=== PATIENT | male | born 1945 | race Caucasian/White ===

== ENCOUNTER 2022-02-15 09:28 | Outpatient (RCR) | payer MEDICARE, SELFPAY | END 2022-07-16 08:48 | disposition home or self-care (01) | LOC: HO.WCC 09:28 | PROVIDERS: PCP Internal Medicine; Visit Provider Physician Assistant | DX: I87.332 Chronic venous hypertension (idiopathic) with ulcer and inflammation of left lower extremity (principal); L97.822 Non-pressure chronic ulcer of other part of left lower leg with fat layer exposed; I87.2 Venous insufficiency (chronic) (peripheral); F03.90 Unspecified dementia, unspecified severity, without behavioral disturbance, psychotic disturbance, mood disturbance, and anxiety | CPT/HCPCS: 11042; 11045; 17250; 97597; 99212 ==

== ENCOUNTER 2022-07-14 12:39 | Outpatient (REF) | payer MEDICARE, SELFPAY ==
--- NOTE | ~2022-07-14 | US_ITS ---
EXAMINATION: US LOWER EXTREMITY VENOUS (REFLUX EXAM), BILATERAL CLINICAL INDICATION: This is a 76-year-old male with venous insufficiency and varicose veins. COMPARISON: None. TECHNIQUE: Color flow triplex imaging and compression Doppler was performed to evaluate both the deep and the superficial systems bilaterally. To evaluate the superficial system, the examination was performed in the upright position. Color-flow Doppler ultrasound and compression ultrasound were utilized. In addition, maneuvers were utilized to demonstrate reflux. FINDINGS: 3. DEEP VENOUS ULTRASOUND OF THE LEFT LOWER EXTREMITY: Common Femoral Vein: Compressible but demonstrates reflux of 1516 ms. Femoral Vein: Compressible, normal color flow and augmentation. Popliteal Vein: Compressible, normal augmentation. Deep Reflux: There is evidence of reflux in the deep system in either the common femoral vein or the popliteal vein. There is no evidence of a Alvarez's cyst. 4. SUPERFICIAL ULTRASOUND WITH DOPPLER OF LEFT LOWER EXTREMITY: GREAT SAPHENOUS VEIN: Saphenofemoral Junction: 0.6 cm Mid Thigh: 0.2 cm Above Knee: 0.2 cm Below Knee: 0.2 cm Mid Calf: 0.2 cm Ankle: 0.1 cm GSV REFLUX: No evidence of reflux. DUPLICATED GREAT SAPHENOUS VEIN: There is a 0.4 cm duplicated lateral great saphenous vein without reflux. SMALL SAPHENOUS VEIN: Proximal: 0.6 cm. The reflux time is 564 ms. Distal: 0.4 cm. There is no reflux at this level. SSV REFLUX: There is reflux at the junction. VEIN OF GIACOMINI: None Imaged. 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 VARICOSITIES: There are 0.4 cm thigh varicose veins without reflux. US/US venous duplex LE LT IMPRESSION: 1. The left great saphenous vein is patent without evidence of reflux. 2. The left small saphenous vein is patent with reflux at the junction as noted.
== END 2022-07-14 12:40 | disposition home or self-care (01) ==
LOC: HO.US 12:39
PROVIDERS: PCP Internal Medicine; Visit Provider Physician Assistant
DX: I87.2 Venous insufficiency (chronic) (peripheral) (principal); I83.90 Asymptomatic varicose veins of unspecified lower extremity; S81.802D Unspecified open wound, left lower leg, subsequent encounter
CPT/HCPCS: 93971

== ENCOUNTER 2023-04-02 17:32 | Emergency (ER) | payer MEDICARE, SELFPAY ==
[2023-04-02] VITALS (7 sets, daily range): BP systolic 105–142; BP diastolic 56–85; PULSE 66–81; RESP 14–16; TEMP 36.4–36.9; O2SAT 93–97; BMI 24.0
--- NOTE | ~2023-04-02 | CT_ITS ---
EXAMINATION: NONCONTRAST HEAD CT NONCONTRAST CERVICAL SPINE CT INDICATION INFORMATION: Status post fall COMPARISON: 06/17/2018 TECHNIQUE: Separate noncontrast CT examinations of the head and cervical spine were performed. Coronal and sagittal images were created for each examination at the technologist workstation. This CT examination was performed using dose optimization techniques as appropriate, variously including the following: *Automated exposure control *Adjustment of mA and/or kV according to patient size (this includes techniques or standardized protocols for targeted exams where dose is matched to indication/reason for exam; i.e. extremities or head) *Use of iterative reconstruction technique DLP: 911 mGy-cm FINDINGS: Head: There is no evidence of acute intracranial hemorrhage or territorial infarction. No abnormal mass effect or midline shift is seen. Kaye to white matter differentiation is well preserved. No extra-axial fluid collections are identified. No hydrocephalus. No significant volume loss. Patchy periventricular and deep white matter hypoattenuation is consistent with mild small vessel ischemic changes. Unchanged left superior temporal gyral cortical calcification, likely dystrophic and postinflammatory in nature, potentially related to old trauma or infarct. No acute osseous or soft tissue abnormality. The mastoid air cells and visualized portions of the paranasal sinuses are well aerated. Cervical spine: There is anatomic alignment of the vertebral bodies and posterior elements. The atlantoaxial and atlantooccipital articulations are intact. Vertebral body heights maintained. Moderate loss of disc space height at C4-C5, C5-C6 and C6-C7. Endplate osteophytes present throughout the cervical spine resulting in varying degrees neural foraminal narrowing throughout. No evidence of acute fracture. No prevertebral soft tissue swelling. Visualized portions of the lung apices are unremarkable. The thyroid gland is unremarkable. CT/CT cervical spine wo IV con IMPRESSION: * No acute intracranial findings. * Chronic dystrophic calcification along the left superior temporal gyrus. Diagnostic considerations as above. * No acute fracture or malalignment of the cervical spine.
--- NOTE | 2023-04-02 17:48 | ED.AMS ---
HPI - Altered Mental Status General Chief Complaint: Altered Mental Status Stated Complaint: AMS Time Seen by Provider: 04/02/23 17:47 Source: patient and EMS Mode of arrival: EMS Limitations: altered mental status History of Present Illness HPI narrative: Patient apparently was outside in heat did not have much water today felt dizzy lightheaded and passed out witness from a distance patient was confused after the fall, do not remember exactly what happened. No seizure activity no palpitation no chest pain never had similar episode in the past Related Data Allergies Allergy/AdvReac Type Severity Reaction Status Date / Time No Known Allergies Allergy Unverified 08/07/20 15:10 [No Known Allergies*] Review of Systems Review of Systems: Yes all other systems are reviewed and are negative [facility] [place] Social History Social History Alcohol intake: current Alcohol intake frequency: 0-2 drinks per day Alcohol type: beer and wine Smoked in Last 30 Days: No Use of substances other than those prescribed or required for medical reasons: No Advance Directives: No Advance Directives Information Provided: No Physical Exam ED Vital Signs: Vital Signs - 24 hr 04/02/23 17:46 04/02/23 17:54 04/02/23 19:29 Temperature 98.4 F 98.4 F 97.9 F Pulse Rate 81 73 68 Respiratory Rate 14 16 16 Blood Pressure 105/56 L 105/56 L 121/69 Pulse Oximetry 93 94 96 Oxygen Delivery Method Room Air Room Air Room Air 04/02/23 20:41 04/02/23 20:42 04/02/23 20:44 Temperature Pulse Rate 73 71 76 Respiratory Rate Blood Pressure 120/68 122/67 142/85 H Pulse Oximetry Oxygen Delivery Method 04/02/23 22:10 Temperature 97.6 F Pulse Rate 66 Respiratory Rate 14 Blood Pressure 116/64 Pulse Oximetry 97 Oxygen Delivery Method Room Air BMI result Body Mass Index 24.0 Appearance: Alert. Oriented 2-3. No acute distress. Eyes: PERRLA, No Nystagmus HEENT: Pharynx normal. 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 Neck supple. In cervical collar CVS: Normal heart rate and rhythm. Pulses normal. Respiratory: No respiratory distress. Equal air entry bilateral, no wheezing/rales/rhonchi Abdomen: Soft and nontender. Bowel sounds are present, no mass palpable, no CVA tenderness Skin: Skin warm and dry. Normal skin color. Normal skin turgor. Extremities: No lower extremity edema. No calf tenderness Neuro: Oriented X 2-3. No motor deficit. No sensory deficit.No cerebellar signs , cranial nerves II-XII intact Medications Administered Discontinued Medications Generic Name Dose Route Start Last Admin Trade Name Freq PRN Reason Stop Dose Admin Sodium Chloride 1,000 mls @ 999 mls/hr 04/02/23 17:59 04/02/23 19:20 Ns IV 04/02/23 18:59 Infused .Q1H1M ONE Infusion Sodium Chloride 1,000 mls @ 999 mls/hr 04/02/23 18:06 04/02/23 20:35 Ns IV 04/02/23 19:06 Infused .Q1H1M ONE Infusion Medical Decision Making Medical Decision Making [facility] Narrative: Patient's symptoms likely from heat exhaustion workup negative improved after IV fluids discharge patient home Lab Data [facility] Lab Attestation statement: I reviewed the patient's lab results. 04/02/23 18:44 04/02/23 18:44 Labs: Lab Results 04/02/23 04/02/23 04/02/23 Range/Units 18:44 18:44 18:44 WBC 5.5 (4.8-10.8) X10*3/uL RBC 3.04 L (4.60-5.80) X10*6/uL Hgb 8.9 L (14.0-18.0) g/dl Hct 26.9 L (42.0-52.0) % MCV 88.5 (80.0-98.0) fL MCH 29.3 (27.0-33.0) pg MCHC 33.1 (31.0-36.0) g/dl RDW 15.1 (11.0-16.0) % Plt Count 225 (160-400) X10*3/uL MPV 9.5 (9.4-12.4) fL Immature Gran % (Auto) 0.2 (0.0-0.4) % Neut % (Auto) 69.1 (45-73) % Lymph % (Auto) 19.6 L (20-40) % Sebastian % (Auto) 8.6 (2-11) % Eos % (Auto) 1.8 (0-4) % Baso % (Auto) 0.7 (0-2) % Lymph # (Auto) 1.1 L (1.2-4.9) X10*3/uL Sebastian # (Auto) 0.5 (0.1-1.2) X10*3/uL Eos # (Auto) 0.1 (0.0-0.4) X10*3/uL Baso # (Auto) 0.0 (0.0-0.2) X10*3/uL Abs Immat Gran (auto) 0.01 (0.00-0.03) X10*3/uL Absolute Neuts (auto) 3.8 (2.0-8.3) x10*3/uL Absolute Nucleated RBC 0.000 (0.0-0.012) X10*3/uL Nucleated RBC % (auto) 0.0 (0.0-0.2) /100WBC PT 10.5 (10.0-13.1) SEC INR 0.9 (0.9-1.1) Sodium 134 L (135-145) mmol/L Potassium 4.5 (3.3-5.1) mmol/L Chloride 111 H (96-108) mmol/L Carbon Dioxide 19 L (22-29) mmol/L Anion Gap 9 L (12-20) BUN 21 H (9-16) mg/dL Creatinine 1.21 (0.5-1.4) mg/dL Estim Creat Clear Calc 41.4 Estimated GFR 58 Random Glucose 92 (60-115) mg/dL Calcium 8.6 (8.4-10.2) mg/dL Magnesium 1.9 (1.6-2.6) mg/dL Total Bilirubin 0.2 (0.0-1.0) mg/dL AST 15 (5-37) U/L ALT 10 (0-40) U/L Alkaline Phosphatase 90 (39-117) U/L Total Creatine Kinase 62 (38-174) U/L Troponin I High Sens (<3.5-35.0) ng/L Total Protein 4.9 L (6.5-8.0) g/dL Albumin 3.0 L (3.5-5.0) g/dL Urine Color Urine Appearance Urine pH (5.0-9.0) Ur Specific [place] (1.005-1.025) Urine Protein (Neg-Trace) mg/dL Urine Glucose (UA) (Negative) mg/dL Urine Ketones (Negative) mg/dL Urine Blood (Negative) Urine Nitrite (Negative) Ur Leukocyte Esterase (Negative) 04/02/23 04/02/23 Range/Units 18:44 20:54 WBC (4.8-10.8) X10*3/uL RBC (4.60-5.80) X10*6/uL Hgb (14.0-18.0) g/dl Hct (42.0-52.0) % MCV (80.0-98.0) fL MCH (27.0-33.0) pg MCHC (31.0-36.0) g/dl RDW (11.0-16.0) % Plt Count (160-400) X10*3/uL MPV (9.4-12.4) fL Immature Gran % (Auto) (0.0-0.4) % Neut % (Auto) (45-73) % Lymph % (Auto) (20-40) % Sebastian % (Auto) (2-11) % Eos % (Auto) (0-4) % Baso % (Auto) (0-2) % Lymph # (Auto) (1.2-4.9) X10*3/uL Sebastian # (Auto) (0.1-1.2) X10*3/uL Eos # (Auto) (0.0-0.4) X10*3/uL Baso # (Auto) (0.0-0.2) X10*3/uL Abs Immat Gran (auto) (0.00-0.03) X10*3/uL Absolute Neuts (auto) (2.0-8.3) x10*3/uL Absolute Nucleated RBC (0.0-0.012) X10*3/uL Nucleated RBC % (auto) (0.0-0.2) /100WBC PT (10.0-13.1) SEC INR (0.9-1.1) Sodium (135-145) mmol/L Potassium (3.3-5.1) mmol/L Chloride (96-108) mmol/L Carbon Dioxide (22-29) mmol/L Anion Gap (12-20) BUN (9-16) mg/dL Creatinine (0.5-1.4) mg/dL Estim Creat Clear Calc Estimated GFR Random Glucose (60-115) mg/dL Calcium (8.4-10.2) mg/dL Magnesium (1.6-2.6) mg/dL Total Bilirubin (0.0-1.0) mg/dL AST (5-37) U/L ALT (0-40) U/L Alkaline Phosphatase (39-117) U/L Total Creatine Kinase (38-174) U/L Troponin I High Sens < 2.7 (<3.5-35.0) ng/L Total Protein (6.5-8.0) g/dL Albumin (3.5-5.0) g/dL Urine Color Yellow Urine Appearance Clear Urine pH 6.5 (5.0-9.0) Ur Specific [place] 1.015 (1.005-1.025) Urine Protein Negative (Neg-Trace) mg/dL Urine Glucose (UA) Negative (Negative) mg/dL Urine Ketones Negative (Negative) mg/dL Urine Blood Negative (Negative) Urine Nitrite Negative (Negative) Ur Leukocyte Esterase Negative (Negative) Discharge Plan Discharge Clinical Impression: Heat exhaustion Patient Disposition: Home, Self-Care Instructions: Heat Exhaustion (ED) Additional Instructions: Drink plenty of fluids Stay in door and well-hydrated
--- NOTE | 2023-04-02 17:59 | ECG_ITS ---
Test Reason : syncope Blood Pressure : / mmHG Vent. Rate : 072 BPM Atrial Rate : 072 BPM P-R Int : 246 ms QRS Dur : 094 ms QT Int : 390 ms P-R-T Axes : 014 -21 053 degrees QTc Int : 427 ms Sinus rhythm with 1st degree A-V block Otherwise normal ECG When compared with ECG of 19-AUG-2018 15:34, [place] interval has increased Referred By: Zia Hernandez Electronically Signed By:CELIA LOOMIS
[2023-04-02] MEDS: 0.9 % Sodium Chloride 1,000 ML 999 ML IV ×2 (18:05→19:23)
[2023-04-02 18:48] LABS: MANUAL DIFF FLAG NO
[2023-04-02 18:49] LABS: Basophils Percent Auto 0.7 % (0-2); Eosinophils Absolute Auto 0.1 X10*3/uL (0.0-0.4); Eosinophils Percent Auto 1.8 % (0-4); Hematocrit 26.9 % (42.0-52.0); Hemoglobin 8.9 g/dl (14.0-18.0); Imm Gran Abs Auto 0.01 X10*3/uL (0.00-0.03); Imm Gran Pct Auto 0.2 % (0.0-0.4); Lymphocytes Absolute Auto 1.1 X10*3/uL (1.2-4.9); Lymphocytes Percent Auto 19.6 % (20-40); Mean Corpuscular HGB Conc 33.1 g/dl (31.0-36.0); Mean Corpuscular Hemoglobin 29.3 pg (27.0-33.0); Mean Corpuscular Volume 88.5 fL (80.0-98.0); Mean Platelet Volume 9.5 fL (9.4-12.4); Monocytes Absolute Auto 0.5 X10*3/uL (0.1-1.2); Monocytes Percent Auto 8.6 % (2-11); Neutrophils Absolute Auto 3.8 x10*3/uL (2.0-8.3); Neutrophils Percent Auto 69.1 % (45-73); Platelet Count 225 X10*3/uL (160-400); Red Blood Count 3.04 X10*6/uL (4.60-5.80); Red Cell Distribution Width 15.1 % (11.0-16.0); White Blood Count 5.5 X10*3/uL (4.8-10.8)
[2023-04-02 18:54] LABS: INTERNATIONAL NORM RATIO 0.9 (0.9-1.1); Prothrombin Time 10.5 SEC (10.0-13.1)
[2023-04-02 19:07] LABS: Alanine Aminotransferase 10 U/L (0-40); Alkaline Phosphatase 90 U/L (39-117); Anion Gap 9 (12-20); Aspartate Amino Transferase 15 U/L (5-37); Bilirubin Total 0.2 mg/dL (0.0-1.0); Blood Urea Nitrogen 21 mg/dL (9-16); Calcium 8.6 mg/dL (8.4-10.2); Carbon Dioxide 19 mmol/L (22-29); Chloride 111 mmol/L (96-108); Creatinine Clr Calc Pharmacy 41.4; Estimated Glomerular Filt Rate 58; Glucose Random 92 mg/dL (60-115); Magnesium 1.9 mg/dL (1.6-2.6); Potassium 4.5 mmol/L (3.3-5.1); Sodium 134 mmol/L (135-145); Total Protein 4.9 g/dL (6.5-8.0)
[2023-04-02 19:20] LABS: Troponin-I High Sensitivity < 2.7 ng/L (<3.5-35.0)
[2023-04-02 21:02] LABS: Appearance Urine Clear; Color Urine Yellow; Glucose Urine UA Negative (Negative); Leukocyte Esterase Urine Negative (Negative); Nitrite Urine Negative (Negative); PH 6.5 (5.0-9.0); Specific Gravity - Urine 1.015 (1.005-1.025); Urine Blood Negative (Negative); Urine Ketones Negative (Negative); Urine Protein Negative (Neg-Trace)
--- NOTE | 2023-04-02 21:07 | PC.NURSE ---
This screenplay writer assumed care of this Pt at 1900. Pt A&Ox4, denies any pain. C-collar cleared, orthostatic vitals obtained. Pt ambulated to the BR with steady gait, urine sample obtained and sent to lab.
== END 2023-04-02 22:54 | disposition home or self-care (01) ==
PROVIDERS: Emergency Provider Internal Medicine
DX: T67.5XXA Heat exhaustion, unspecified, initial encounter (principal); R42 Dizziness and giddiness; Y92.214 College as the place of occurrence of the external cause; Y99.9 Unspecified external cause status
CPT/HCPCS: 36415; 70450; 72125; 80053; 81003; 82550; 83735; 84484; 85025; 85610; 93005; 96360; 96361; 99284; 99285

== ENCOUNTER 2023-09-12 16:15 | Emergency (ER) | payer MEDICARE, SELFPAY ==
--- NOTE | 2023-09-12 16:31 | ED.AMS ---
HPI - Altered Mental Status General Chief Complaint: Altered Mental Status Stated Complaint: confusion @baseline, found walking around, SZ hx Time Seen by Provider: 09/12/23 16:19 Source: patient and EMS Mode of arrival: EMS Limitations: no limitations History of Present Illness HPI narrative: 78-year-old male with a history of casillas hypopituitarism, SIADH, mixed hyperlipidemia, hyponatremia, paroxysmal atrial fibrillation, seizures, moderate dementia who presents emergency department for evaluation of confusion. Information was obtained from EMS. The patient was found wandering around the [facility]. Apparently student is saw the patient wandering in the road, he appeared confused and they called campus security. [place] security then call EMS. According to EMS the patient initially was confused but seem to become more oriented more clear during transport. At the time of my evaluation, he told me that he has seizures and occasionally after a seizure he loses is memory for about an hour to an hour and a half sometimes cannot remember what happened. He states that he is on seizure medications but could not recount the names of his medications. Patient was oriented to person, place, he knew the month and year. He answers questions appropriately but does appear to have some memory deficits. I did obtain office records from [facility] in [place] and the record confirms that does have a known seizure disorder, he does take Keppra. Related Data Allergies Allergy/AdvReac Type Severity Reaction Status Date / Time No Known Allergies Allergy Unverified 08/07/20 15:10 [No Known Allergies*] Review of Systems Review of Systems: Yes all other systems are reviewed and are negative [facility] Past Medical History [facility] Narrative: Social history: Patient states he lives in [facility]. He denies alcohol, tobacco and drug use. Social History Social History Alcohol intake: current Alcohol intake frequency: 0-2 drinks per day Alcohol type: wine Smoked in Last 30 Days: No Use of substances other than those prescribed or required for medical reasons: No Advance Directives: Yes Advance Directives Information Provided: No Advance Directives on File: No Physical Exam ED Vital Signs: Vital Signs - 24 hr 09/12/23 16:45 Temperature 97.6 F Pulse Rate 60 Respiratory Rate 16 Blood Pressure 140/84 H Pulse Oximetry 99 Oxygen Delivery Method Room Air BMI result Body Mass Index 25.8 Vital signs were normal Exam: General: Awake, alert in no distress, he does have some confusion but does answer questions appropriately Head: Normocephalic, atraumatic EENT: PERRL, Lids normal, sclera normal, conjunctiva normal, nose normal , ears normal, throat without erythema or exudates Neck: Supple, no adenopathy, no trachea midline or C-spine tenderness Lung: breath sounds symmetric, no wheezing, rales or rhonchi Chest: symmetric movement, nontender Heart: regular rate and rhythm, normal S1, S2 no murmurs or rubs Abdomen: soft, non-tender, nondistended, normal bowel sounds Back: no vertebral tenderness, no CVAT Extremities: no deformities, moves all extremities symmetrically Skin: 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 The patient was found wandering around the [facility], walking in the streets, according to paramedics he was initially confused but seemed to clear up during transport. At the time my evaluation the patient is oriented person, place and he knows the year. He does answer questions appropriately but does seem to have some memory deficits. According to the records obtained from [facility], the patient has moderate dementia and he does have a seizure disorder. Patient states that he has had amnesia with confusion after his seizure. At this time, patient is back to his baseline and he states that he has not been ill in any way. The patient does not want any further evaluation and would like to be discharged home. I suspect that the patient may have had an abscess on seizure causing his confusion and is amnesia of events prior to coming to the emergency department. Patient was advised to continue taking his medications as prescribed by his providers and to follow-up with his neurologist for re-evaluation. Differential Diagnosis Differential Diagnoses: The differential diagnosis associated with the presentation includes Differential diagnosis includes was not limited to seizure, dementia, electrolyte abnormalities Independent Historian Clinical information obtained from an independent historian. History obtained from or confirmed by: EMS External Record Review External record reviewed: Office record ([facility] office note) Chronic Conditions Patient?s care impacted by: Other (Seizure) Discharge Plan Discharge Clinical Impression: Altered mental status, Seizure disorder Patient Disposition: Home, Self-Care Additional Instructions: Your brought to emergency department by ambulance for evaluation of confusion. You have no memory of the event as described by the paramedics but your found wandering around the [facility] and you appeared confused and were walking in the road. At the time of my evaluation, your awake, alert in your no longer confused. I suspect that you may have had a seizure which caused your confusion. Seen for the continue taking medications as prescribed by your provider. You should follow-up with your neurologist, Dr. Ferguson to discuss your seizure disorder in to see if you needed change in you medications. Follow-up with your doctor in 2 days. Please return to the emergency department if your symptoms get worse or if you develop any symptoms that are concerning to you. YOU CANNOT DRIVE SINCE YOU HAVE A SEIZURE DISORDER, IF YOU DRIVE AND HAVE A SEIZURE YOU COULD KILL YOURSELF FOR KILL ANOTHER PERSON.
[2023-09-12 16:45] VITALS: BP 128/90; BP 140/84; PULSE 60; PULSE 68; RESP 16; TEMP 36.4; O2SAT 98; O2SAT 99; BMI 25.8
== END 2023-09-12 18:52 | disposition home or self-care (01) ==
PROVIDERS: Emergency Provider Emergency Medicine Emergency Medical Services; PCP Internal Medicine
DX: R41.82 Altered mental status, unspecified (principal); G40.909 Epilepsy, unspecified, not intractable, without status epilepticus
CPT/HCPCS: 99283

== ENCOUNTER 2023-10-12 14:37 | Emergency (ER) | payer MEDICARE, SELFPAY ==
--- NOTE | ~2023-10-12 | CT_ITS ---
EXAMINATION: CT HEAD WITHOUT CONTRAST CLINICAL INFORMATION: Dizziness. COMPARISON: 04/02/2023. TECHNIQUE: Contiguous axial imaging was performed from the skull base to vertex without intravenous administration of contrast. This CT examination was performed using dose optimization techniques as appropriate, variously including the following: *Automated exposure control *Adjustment of mA and/or kV according to patient size (this includes techniques or standardized protocols for targeted exams where dose is matched to indication/reason for exam; i.e. extremities or head) *Use of iterative reconstruction technique DLP: 627 mGy-cm FINDINGS: There is mild cerebral volume loss with prominence of the lateral and the third ventricles. The cortical sulci are widened appropriately. The fourth ventricle and basal cisterns are normally outlined. There is mild bilateral periventricular and central white matter diminished attenuation. Calcification along the left temporal gyrus is again seen unchanged. There is no acute territorial defect, hemorrhage or midline shift. The extra-axial spaces are unremarkable. Calvarium: Intact. Maxillofacial sinuses and mastoids: There is a chronic sphenoid sinus opacity. There is maxillary sinus mucosal thickening. The mastoids are clear. CT/CT head/brain wo IV con IMPRESSION: No acute intracranial pathology. No significant interval change.
[2023-10-12 14:48] VITALS: BP 142/78; PULSE 74; O2SAT 98
[2023-10-12 14:50] VITALS: BP 123/66; PULSE 72; RESP 19; TEMP 36.6; O2SAT 99; BMI 25.3
--- NOTE | 2023-10-12 15:57 | ED.DIZZY ---
HPI - Dizziness General Chief Complaint: Dizziness Stated Complaint: dizzy per ems Time Seen by Provider: 10/12/23 15:53 Source: patient Mode of arrival: EMS Limitations: other (very poor historian ) History of Present Illness HPI Narrative: 78 yo male with PMH of seizures - not on thinners, HLD, LE edema, hypothyroidism who reports he was shopping at [employer] felt dizzy after he bent down to tie his shoes he states he did not fall or hit his head. He did not have LOC. He states he feels fine now but thinks he is not drinking enough water. He denies CP/SOB, GIB symptoms. He feels fine now. MD elicited complaint: lightheadedness Onset (ago): minute(s) (prior to arrival ) Timing: sudden onset Severity: mild Description: lightheadedness Context: change in body position History of similar symptoms: Yes Exacerbating factors: change in body position Relieving factors: remaining still and rest Associated symptoms: denies other symptoms Related Data Allergies Allergy/AdvReac Type Severity Reaction Status Date / Time No Known Allergies Allergy Verified 10/12/23 14:49 [No Known Allergies*] Review of Systems Review of Systems: Constitutional : No Fever, No Chills, No Fatigue ENT/Mouth : No sore throat, No Rhinorrhea Eyes: No Eye Pain, No Swelling, No Redness Cardiovascular : No Chest Pain, No SOB, No Dyspnea on Exertion Respiratory : No Cough, No Sputum Gastrointestinal : No Nausea, No Vomiting, No Diarrhea, No abdominal Pain Genitourinary : No Dysuria, No Urinary Frequency, No Hematuria, Musculoskeletal : No joint pain, No Myalgias, No Joint Swelling Skin : No Skin Lesions, No rash Neuro : No Weakness, No Numbness, pos Dizziness, no Headache Psych : No Anxiety/Panic, No Depression Heme/Lymph: No Bruising, No Bleeding,No Lymphadenopathy Endocrine : No Polyuria, No Polydipsia All other systems reviewed and are negative [facility] Past Medical History Attestation statement: The following information was validated with the patient. Medical History Hypothyroidism Hyperlipidemia Seizure Social History Alcohol intake: current Alcohol intake frequency: 0-2 drinks per day Alcohol type: wine Smoked in Last 30 Days: No Use of substances other than those prescribed or required for medical reasons: No Advance Directives: No Physical Exam Vital Signs: Vital Signs: Last Vital Signs Temp 98 F 10/12/23 14:50 Pulse 73 10/12/23 17:50 Resp 18 10/12/23 17:46 BP 137/72 10/12/23 17:50 Pulse Ox 96 10/12/23 17:46 O2 Del Method Room Air 10/12/23 17:46 BMI result Body Mass Index 25.3 Appearance: Alert. Oriented X3. No acute distress. Eyes: Pupils equal, round and reactive to light. ENT: Pharynx normal. Scalp scabbed over. Neck: Normal inspection. Neck supple. CVS: Normal heart rate and rhythm. Pulses normal. Respiratory: No respiratory distress. Breath sounds normal. Abdomen: Soft and nontender. Skin: Skin warm and dry. Normal skin color. Normal skin turgor. Extremities: 1-2+ pitting lower extremity edema. Neuro: Oriented X 3. No motor deficit. No sensory deficit. Course Course Course Narrative: no dizziness walking will feed Medical Decision Making Medical Decision Making [facility] Narrative: 78 yo male with PMH of seizures - not on thinners, HLD, LE edema, hypothyroidism here with c/o feeling dizzy at [facility] when he bent forward - he denies CP/SOB, GIB symptoms. He states he feels fine now. At this time he denies seizure activity but does admit he is not drinking enough. He is not a very good historian. His RN did talk to his brother who notes that he is driving and is supposed to travel to [place] today. He will have labs, EKG, ortho VS and CT head for mass. Differential Diagnosis Differential Diagnoses: The differential diagnosis associated with the presentation includes anemia, dehydration, lyte abnormality, FTT, orthostatic hypotension Admission/Observation Consideration of admission/observation: Escalation of care including admission/observation considered steady gait, no neuro symptoms, at this time at baseline, stable for DC Lab Data [facility] Lab Attestation statement: I reviewed the patient's lab results. 10/12/23 17:19 10/12/23 17:19 Labs: Lab Results 10/12/23 10/12/23 Range/Units 17:18 17:19 WBC 6.1 (4.8-10.8) X10*3/uL RBC 3.73 L D (4.60-5.80) X10*6/uL Hgb 10.8 L D (14.0-18.0) g/dl Hct 33.0 L D (42.0-52.0) % MCV 88.5 (80.0-98.0) fL MCH 29.0 (27.0-33.0) pg MCHC 32.7 (31.0-36.0) g/dl RDW 14.6 (11.0-16.0) % Plt Count 221 (160-400) X10*3/uL MPV 9.4 (9.4-12.4) fL Immature Gran % (Auto) 0.3 (0.0-0.4) % Neut % (Auto) 73.2 H (45-73) % Lymph % (Auto) 17.0 L (20-40) % [place] % (Auto) 7.2 (2-11) % Eos % (Auto) 1.3 (0-4) % Baso % (Auto) 1.0 (0-2) % Lymph # (Auto) 1.0 L (1.2-4.9) X10*3/uL [place] # (Auto) 0.4 (0.1-1.2) X10*3/uL Eos # (Auto) 0.1 (0.0-0.4) X10*3/uL Baso # (Auto) 0.1 (0.0-0.2) X10*3/uL Abs Immat Gran (auto) 0.02 (0.00-0.03) X10*3/uL Absolute Neuts (auto) 4.5 (2.0-8.3) x10*3/uL Absolute Nucleated RBC 0.000 (0.0-0.012) X10*3/uL Nucleated RBC % (auto) 0.0 (0.0-0.2) /100WBC Sodium 140 (135-145) mmol/L Potassium 4.9 (3.3-5.1) mmol/L Chloride 111 H (96-108) mmol/L Carbon Dioxide 25 (22-29) mmol/L Anion Gap 9 L (12-20) BUN 24 H (9-16) mg/dL Creatinine 1.31 (0.5-1.4) mg/dL Estim Creat Clear Calc 39.1 Estimated GFR 53 Random Glucose 94 (60-115) mg/dL Calcium 9.7 D (8.4-10.2) mg/dL Magnesium 2.1 (1.6-2.6) mg/dL Total Bilirubin 0.3 (0.0-1.0) mg/dL Direct Bilirubin 0.2 (0.0-0.5) mg/dL AST 23 (5-37) U/L ALT 13 (0-40) U/L Alkaline Phosphatase 92 (39-117) U/L Troponin I High Sens 4.0 (<3.5-35.0) ng/L Total Protein 5.7 L (6.5-8.0) g/dL Albumin 3.3 L (3.5-5.0) g/dL COVID-19 (JAVIER) Negative (Negative) COVID-19 Clin Com See Note Independent Interpretation I performed an independent interpretation of an: EKG and CT Scan (no ICH) Interpretation: Rate: 67 Rhythm: NSR with 1st degree AVB [place]: left Normal P waves. Normal SHADE. Normal QRS complex. ST T wave : no LEOPOLDO, nonspecific ST T wave changes qTC: normal prior studies: no acute ischemia The study has been interpreted contemporaneously by me. . Radiology Impression Discussion of test interpretation with radiology: I have reviewed the radiologist's reading. External Record Review External record reviewed: Inpatient record and Outpatient record Discharge Plan Discharge Clinical Impression: Dizziness Patient Disposition: Home, Self-Care Instructions: Dizziness (ED) Additional Instructions: return for worsening symptoms, headaches, confusion, falls, dizziness, cough, fevers, chest pain, trouble breathing or any other concerns. CT head, blood work and electrocardiogram were all within normal limits
--- NOTE | 2023-10-12 16:14 | ECG_ITS ---
Test Reason : DIZZINESS Blood Pressure : / mmHG Vent. Rate : 067 BPM Atrial Rate : 067 BPM P-R Int : 242 ms QRS Dur : 096 ms QT Int : 424 ms P-R-T Axes : 004 -27 052 degrees QTc Int : 448 ms Sinus rhythm with 1st degree A-V block Otherwise normal ECG When compared with ECG of 02-APR-2023 18:05, No significant change was found Referred By: María Do Electronically Signed By:EUGENE CRAIN MD
[2023-10-12 17:23] LABS: MANUAL DIFF FLAG NO
[2023-10-12 17:25] LABS: Basophils Absolute Auto 0.1 X10*3/uL (0.0-0.2); Eosinophils Absolute Auto 0.1 X10*3/uL (0.0-0.4); Eosinophils Percent Auto 1.3 % (0-4); Hemoglobin 10.8 g/dl (14.0-18.0); Imm Gran Abs Auto 0.02 X10*3/uL (0.00-0.03); Imm Gran Pct Auto 0.3 % (0.0-0.4); Mean Corpuscular HGB Conc 32.7 g/dl (31.0-36.0); Mean Corpuscular Volume 88.5 fL (80.0-98.0); Mean Platelet Volume 9.4 fL (9.4-12.4); Monocytes Absolute Auto 0.4 X10*3/uL (0.1-1.2); Monocytes Percent Auto 7.2 % (2-11); Neutrophils Absolute Auto 4.5 x10*3/uL (2.0-8.3); Neutrophils Percent Auto 73.2 % (45-73); Platelet Count 221 X10*3/uL (160-400); Red Blood Count 3.73 X10*6/uL (4.60-5.80); Red Cell Distribution Width 14.6 % (11.0-16.0); White Blood Count 6.1 X10*3/uL (4.8-10.8)
[2023-10-12 17:38] LABS: Alanine Aminotransferase 13 U/L (0-40); Albumin Level 3.3 g/dL (3.5-5.0); Alkaline Phosphatase 92 U/L (39-117); Anion Gap 9 (12-20); Aspartate Amino Transferase 23 U/L (5-37); Bilirubin Direct 0.2 mg/dL (0.0-0.5); Bilirubin Total 0.3 mg/dL (0.0-1.0); Blood Urea Nitrogen 24 mg/dL (9-16); Calcium 9.7 mg/dL (8.4-10.2); Carbon Dioxide 25 mmol/L (22-29); Chloride 111 mmol/L (96-108); Creatinine Clr Calc Pharmacy 39.1; Estimated Glomerular Filt Rate 53; Glucose Random 94 mg/dL (60-115); Magnesium 2.1 mg/dL (1.6-2.6); Potassium 4.9 mmol/L (3.3-5.1); Sodium 140 mmol/L (135-145); Total Protein 5.7 g/dL (6.5-8.0)
[2023-10-12 17:40] LABS: COVID-19 Test Negative (Negative); IDNOW Serial# BCCEAD1C
[2023-10-12 17:46] VITALS: BP 126/69; PULSE 71; RESP 18; O2SAT 96
[2023-10-12 17:47] VITALS: BP 123/70; PULSE 69
[2023-10-12 17:49] VITALS: BP 132/74; PULSE 68
[2023-10-12 17:50] VITALS: BP 137/72; PULSE 73
--- NOTE | 2023-10-12 18:27 | PC.NURSE ---
patient ambulated with staff around parameter of ER, patient walked with steady gait, had no incident of dizziness. patient alert and oriented, dressed appropriately for the weather
== END 2023-10-12 18:51 | disposition home or self-care (01) ==
PROVIDERS: Emergency Provider Emergency Medicine
DX: R42 Dizziness and giddiness (principal); E03.9 Hypothyroidism, unspecified; E78.5 Hyperlipidemia, unspecified; R60.9 Edema, unspecified; Z11.52 Encounter for screening for COVID-19; Z79.899 Other long term (current) drug therapy
CPT/HCPCS: 70450; 80048; 80076; 83735; 84484; 85025; 87635; 93005; 99284

== ENCOUNTER 2024-02-29 19:06 | Emergency (ER) | payer MEDICARE, SELFPAY ==
--- NOTE | ~2024-02-29 | CT_ITS ---
EXAMINATION: CT HEAD WITHOUT CONTRAST CLINICAL INFORMATION: Fall. Pain. COMPARISON: 10/12/2023. TECHNIQUE: Contiguous axial imaging was performed from the skull base to vertex without intravenous administration of contrast. This CT examination was performed using dose optimization techniques as appropriate, variously including the following: *Automated exposure control *Adjustment of mA and/or kV according to patient size (this includes techniques or standardized protocols for targeted exams where dose is matched to indication/reason for exam; i.e. extremities or head) *Use of iterative reconstruction technique DLP: 598 mGy-cm FINDINGS: There is mild cerebral volume loss with prominence of the lateral and the third ventricles. The cortical sulci are widened appropriately. The fourth ventricle and basal cisterns are normally outlined. There is mild bilateral periventricular and central white matter diminished attenuation. There is no acute territorial defect, hemorrhage or midline shift. Left temporal region calcification is again seen unchanged. There is a 1.8 cm sella/suprasellar mass. Calvarium: Intact. Maxillofacial sinuses and mastoids: There is a chronic sphenoid sinus opacity. There is left maxillary sinus mucosal thickening. The mastoids are clear. CT/CT head/brain wo IV con IMPRESSION: 1. No acute intracranial abnormality. 2. Sellar/suprasellar mass 1.8 cm. Consider pituitary protocol MRI. 3. Chronic sphenoid sinus opacity. Chronic left maxillary sinus mucosal thickening.
--- NOTE | 2024-02-29 19:17 | ECG_ITS ---
Test Reason : AMS Blood Pressure : / mmHG Vent. Rate : 070 BPM Atrial Rate : 070 BPM P-R Int : 236 ms QRS Dur : 092 ms QT Int : 376 ms P-R-T Axes : 021 -20 054 degrees QTc Int : 406 ms Sinus rhythm with 1st degree A-V block with Premature supraventricular complexes Nonspecific ST abnormality Abnormal ECG When compared with ECG of 12-OCT-2023 16:56, Premature supraventricular complexes are now Present T wave amplitude has increased in Anterior leads Referred By: Generic ED Physician Electronically Signed By:Freddy Lindquist
[2024-02-29 19:19] VITALS: BP 108/54; BP 112/58; PULSE 66; RESP 66; TEMP 36.8; O2SAT 100; O2SAT 98; BMI 19.9
--- NOTE | 2024-02-29 19:19 | ED_ITS ---
HPI - Altered Mental Status General Chief Complaint: Altered Mental Status Stated Complaint: ams seizure ? Time Seen by Provider: 02/29/24 19:14 Source: patient, EMS and RN notes reviewed Mode of arrival: EMS Limitations: no limitations History of Present Illness HPI narrative: Patient history of seizure disorder last 25 years on Lamictal and Topamax came from assisted living place, staff noticed patient was alert but not responding to questions similar to that in the past when patient gets seizure. patient does not remember anything remember waking up in the ambulance no recent fall no fever nursing staff suspected absence seizure Related Data Allergies Allergy/AdvReac Type Severity Reaction Status Date / Time No Known Allergies Allergy Verified 02/29/24 19:25 [No Known Allergies*] Review of Systems 2 Review of Systems: Yes all other systems are reviewed and are negative PMFSH Past Medical History Medical History Hypothyroidism Hyperlipidemia Seizure Social History Social History Alcohol intake: current Alcohol intake frequency: a few times a month Alcohol type: wine Smoked in Last 30 Days: No Use of substances other than those prescribed or required for medical reasons: No Advance Directives: Yes Advance Directives Information Provided: No Advance Directives on File: No Physical Exam ED Vital Signs: Vital Signs - 24 hr 02/29/24 19:19 02/29/24 19:20 02/29/24 21:15 Temperature 98.3 F 98.0 F 98.3 F Pulse Rate 66 66 70 Respiratory Rate 66 H 17 17 Blood Pressure 112/58 L 112/58 L 117/57 L Pulse Oximetry 100 100 100 Oxygen Delivery Method Room Air Room Air Room Air 02/29/24 22:18 03/01/24 01:05 Temperature 98.2 F 98.5 F Pulse Rate 70 62 Respiratory Rate 17 17 Blood Pressure 111/61 111/62 Pulse Oximetry 100 100 Oxygen Delivery Method Room Air Room Air BMI result Body Mass Index 19.9 Appearance: Alert. Oriented X3. No acute distress. Eyes: PERRLA, No Nystagmus ENT: Pharynx normal. Oral Mucosa moist no tongue bite seborrheic keratosis lesions on the scalp Neck: Normal inspection. Neck supple. CVS: Normal heart rate and rhythm. Pulses normal. Respiratory: No respiratory distress. Equal air entry bilateral, no wheezing/rales/rhonchi Abdomen: Soft , mild discomfort on percussion with the right upper quadrant Bowel sounds are present, no mass palpable, no CVA tenderness Skin: Skin warm and dry. Normal skin color. Normal skin turgor. Extremities: No lower extremity edema. No calf tenderness Neuro: Oriented X 3. No motor deficit. No sensory deficit.No cerebellar signs , cranial nerves II-XII intact Medical Decision Making Medical Decision Making [facility] Narrative: Patient with history of epilepsy with recurrent episodes of seizures without any tonic-clonic movements had similar episode today on Topamax and Lamictal chemistries stable patient is back to baseline ambulatory in the ED will discharge patient back to correction no signs of head injury or fall 2340 while in the bathroom before ready to go back patient lost balance and fell hitting his head to the wall without any significant injury will get CT head Patient's CT scan of the head is negative for acute patient is unsteady on his feet comes from assisted living place will get case management involved for placement in a rehab/correction Differential Diagnosis Differential Diagnoses: The differential diagnosis associated with the presentation includes Epilepsy/metabolic encephalopathy Lab Data [facility] Lab Attestation statement: I reviewed the patient's lab results. 02/29/24 19:41 02/29/24 19:41 Labs: Lab Results 02/29/24 02/29/24 Range/Units 19:41 21:16 WBC 7.4 (4.8-10.8) X10*3/uL RBC 3.50 L (4.60-5.80) X10*6/uL Hgb 10.5 L (14.0-18.0) g/dl Hct 32.6 L (42.0-52.0) % MCV 93.1 (80.0-98.0) fL MCH 30.0 (27.0-33.0) pg MCHC 32.2 (31.0-36.0) g/dl RDW 19.0 H (11.0-16.0) % Plt Count 196 (160-400) X10*3/uL MPV 10.5 (9.4-12.4) fL Immature Gran % (Auto) 0.4 (0.0-0.4) % Neut % (Auto) 67.5 (45-73) % Lymph % (Auto) 18.8 L (20-40) % [place] % (Auto) 11.6 H (2-11) % Eos % (Auto) 1.2 (0-4) % Baso % (Auto) 0.5 (0-2) % Lymph # (Auto) 1.4 (1.2-4.9) X10*3/uL [place] # (Auto) 0.9 (0.1-1.2) X10*3/uL Eos # (Auto) 0.1 (0.0-0.4) X10*3/uL Baso # (Auto) 0.0 (0.0-0.2) X10*3/uL Abs Immat Gran (auto) 0.03 (0.00-0.03) X10*3/uL Absolute Neuts (auto) 5.0 (2.0-8.3) x10*3/uL Absolute Nucleated RBC 0.000 (0.0-0.012) X10*3/uL Nucleated RBC % (auto) 0.0 (0.0-0.2) /100WBC Sodium 137 (135-145) mmol/L Potassium 4.6 (3.3-5.1) mmol/L Chloride 111 H (96-108) mmol/L Carbon Dioxide 19 L (22-29) mmol/L Anion Gap 12 (12-20) BUN 24 H (9-16) mg/dL Creatinine 0.99 (0.5-1.4) mg/dL Estim Creat Clear Calc 48.4 Estimated GFR > 60 Random Glucose 74 (60-115) mg/dL Calcium 9.3 (8.4-10.2) mg/dL Total Bilirubin 0.4 (0.0-1.0) mg/dL AST 25 (5-37) U/L ALT 35 (0-40) U/L Alkaline Phosphatase 86 (39-117) U/L Total Protein 5.7 L (6.5-8.0) g/dL Albumin 3.1 L (3.5-5.0) g/dL Urine Color Yellow Urine Appearance Clear Urine pH 7.0 (5.0-9.0) Ur Specific [place] 1.015 (1.005-1.025) Urine Protein Negative (Neg-Trace) mg/dL Urine Glucose (UA) Negative (Negative) mg/dL Urine Ketones Negative (Negative) mg/dL Urine Blood Negative (Negative) Urine Nitrite Negative (Negative) Ur Leukocyte Esterase Negative (Negative) Independent Interpretation I performed an independent interpretation of an: EKG and CT Scan Interpretation: Sinus rhythm heart rate 70 beats per minute PACs no acute ST T wave changes no acute ischemia Radiology Impression Discussion of test interpretation with radiology: I have reviewed the radiologist's reading. Radiologist Impression: [address] [address] [address] Scan Report Signed Patient: Mitch Pete MR#: [id number] : 1945 Acct:[id number] Age/Sex: 78 / M ADM Date: 02/29/24 Loc: .ED Attending Dr: Ordering Physician: Zia Hernandez MD Date of Service: 02/29/24 Procedure(s): CT head/brain wo IV con Accession Number(s): [id number] cc: Pilar Edmondson MD; Zia Hernandez MD~ EXAMINATION: CT HEAD WITHOUT CONTRAST CLINICAL INFORMATION: Fall. Pain. COMPARISON: 10/12/2023. TECHNIQUE: Contiguous axial imaging was performed from the skull base to vertex without intravenous administration of contrast. This CT examination was performed using dose optimization techniques as appropriate, variously including the following: *Automated exposure control *Adjustment of mA and/or kV according to patient size (this includes techniques or standardized protocols for targeted exams where dose is matched to indication/reason for exam; i.e. extremities or head) *Use of iterative reconstruction technique DLP: 598 mGy-cm FINDINGS: There is mild cerebral volume loss with prominence of the lateral and the third ventricles. The cortical sulci are widened appropriately. The fourth ventricle and basal cisterns are normally outlined. There is mild bilateral periventricular and central white matter diminished attenuation. There is no acute territorial defect, hemorrhage or midline shift. Left temporal region calcification is again seen unchanged. There is a 1.8 cm sella/suprasellar mass. Calvarium: Intact. Maxillofacial sinuses and mastoids: There is a chronic sphenoid sinus opacity. There is left maxillary sinus mucosal thickening. The mastoids are clear. CT/CT head/brain wo IV con IMPRESSION: 1. No acute intracranial abnormality. 2. Sellar/suprasellar mass 1.8 cm. Consider pituitary protocol MRI. 3. Chronic sphenoid sinus opacity. Chronic left maxillary sinus mucosal thickening. Discharge Plan Discharge Clinical Impression: Seizure disorder, Weakness Patient Disposition: Still a Patient Print Language: Northern Irish
[2024-02-29 19:20] VITALS: BP 112/58; PULSE 66; RESP 17; TEMP 36.7; O2SAT 100
[2024-02-29 19:45] LABS: MANUAL DIFF FLAG NO
[2024-02-29 19:52] LABS: Basophils Percent Auto 0.5 % (0-2); Eosinophils Absolute Auto 0.1 X10*3/uL (0.0-0.4); Eosinophils Percent Auto 1.2 % (0-4); Hematocrit 32.6 % (42.0-52.0); Hemoglobin 10.5 g/dl (14.0-18.0); Imm Gran Abs Auto 0.03 X10*3/uL (0.00-0.03); Imm Gran Pct Auto 0.4 % (0.0-0.4); Lymphocytes Absolute Auto 1.4 X10*3/uL (1.2-4.9); Lymphocytes Percent Auto 18.8 % (20-40); Mean Corpuscular HGB Conc 32.2 g/dl (31.0-36.0); Mean Corpuscular Volume 93.1 fL (80.0-98.0); Mean Platelet Volume 10.5 fL (9.4-12.4); Monocytes Absolute Auto 0.9 X10*3/uL (0.1-1.2); Monocytes Percent Auto 11.6 % (2-11); Neutrophils Percent Auto 67.5 % (45-73); Platelet Count 196 X10*3/uL (160-400); White Blood Count 7.4 X10*3/uL (4.8-10.8)
[2024-02-29 20:17] LABS: Alanine Aminotransferase 35 U/L (0-40); Albumin Level 3.1 g/dL (3.5-5.0); Alkaline Phosphatase 86 U/L (39-117); Anion Gap 12 (12-20); Aspartate Amino Transferase 25 U/L (5-37); Bilirubin Total 0.4 mg/dL (0.0-1.0); Blood Urea Nitrogen 24 mg/dL (9-16); Calcium 9.3 mg/dL (8.4-10.2); Carbon Dioxide 19 mmol/L (22-29); Chloride 111 mmol/L (96-108); Creatinine Clr Calc Pharmacy 48.4; Estimated Glomerular Filt Rate > 60; Glucose Random 74 mg/dL (60-115); Potassium 4.6 mmol/L (3.3-5.1); Sodium 137 mmol/L (135-145); Total Protein 5.7 g/dL (6.5-8.0)
[2024-02-29 21:15] VITALS: BP 117/57; PULSE 70; RESP 17; TEMP 36.8; O2SAT 100
[2024-02-29 21:24] LABS: Appearance Urine Clear; Color Urine Yellow; Glucose Urine UA Negative (Negative); Leukocyte Esterase Urine Negative (Negative); Nitrite Urine Negative (Negative); Specific Gravity - Urine 1.015 (1.005-1.025); Urine Blood Negative (Negative); Urine Ketones Negative (Negative); Urine Protein Negative (Neg-Trace)
--- NOTE | 2024-02-29 21:30 | PC.NURSE ---
t/w spoke with Carolyn from [facility] to obtain more information. Carolyn states pt was a/o and able to walk to dinner, while sitting at dinner be became unresponsive, falling forward and drooling. Pts eyes were opened but he was not paying attention to anything. PT was unable to ambulate. Notified her that pt is now a/ox3 likely at baseline given hx dementia. This RN conducted a ambulation trial in which the pt was able to ambulate without assistance. gait was slow but steady. Notified provider and front end web developer for transportation
[2024-02-29 22:18] VITALS: BP 111/61; PULSE 70; RESP 17; TEMP 36.8; O2SAT 100
[2024-03-01 01:05] VITALS: BP 111/62; PULSE 62; RESP 17; TEMP 36.9; O2SAT 100
--- NOTE | 2024-03-01 03:16 | PC.NURSE ---
PT was evaluated and ready for discharge. [employer] arrived to transport. While assisting pt to change. This RN noted pt was incontinent of stool and offered to get wipes to assist in cleaning pt. Once Rn returned, [employer] employee noted that pt ambulated to the bathroom by room 7. This Rn checked in with pt and offered to provide wipes, pt declined. Moments later, t/w received report from Laureen Lee RN, that the PT opened the door of the bathroom and reported to her that he lost his footing while using the bathroom and hit hit head on the wall. There were visible streaks of blood on the wall above the toilet. PT was alert and oriented x3, Pupils equal and round. Pt denies LOC, able to walk back to bed 11 with assistance. Skin tear noted on top of head. First aid applied. Charge Nurse and provider notified. CT scan ordered. First aid applied to injury site. Plan changed to PT case management due to fall. T/w contacted WIll, pt's brother to provide update- left message on voicemail
[2024-03-01 03:49] VITALS: BP 109/61; PULSE 62; RESP 17; TEMP 36.4; O2SAT 100
--- NOTE | 2024-03-01 04:46 | PC.NURSE ---
pt transported from main ed to overflow bed 9, pt a&ox4, and ambulatory. pt assisted into hospital bed. pt noted to have abrasion to the forehead, wrapped with clean, dry gauze. no acute distress noted.
[2024-03-01 06:38] VITALS: BP 115/86; PULSE 61; RESP 18; TEMP 36.8; O2SAT 98
--- NOTE | 2024-03-01 07:13 | PC.NURSE ---
assumed care of patient at this time, patient sleeping, respirations even and unlabored.
--- NOTE | 2024-03-01 08:20 | PC.NURSE ---
Sergio cath emptied for 800ml yellow urine. Ambulated with PTRosi Easton eating breakfast
--- NOTE | 2024-03-01 09:52 | MHC.CM.PN ---
Addendum entered by Lilliana Leung, RN 03/01/24 13:31: PT WAS STARTING CARE W/[facility] GIRALDOA, REFERRAL PLACED AND [facility] TRANSPORT SET UP FOR 2PM. Original Note: EMR REVIEWED, CM MET W/PT WHO REPORTS HE WAS JUST DISCHARGED FROM [facility] AND MOVED INTO [facility], PT REPORTS HE FEELS BACK TO BASELINE AND THAT HE SEE'S DR BECKETT FOR NEURO, CM OFFERED TO MAKE AN APPT FOR PT HOWEVER PT DECLINED REPORTING HE WOULD LIKE TO WAIT UNTIL HE GOES HOME TO LOOK AT HIS CALENDER. CM ATTEMPTED TO CONTACT [facility], NO ANSWER AND MESSAGE LEFT, CM CONTACTED [facility] NURSE DOLORES WHO WILL CHECK INTO TRANSPORTATION AND TO LOOK INTO HOME SERVICES FOR PT.
--- NOTE | 2024-03-01 14:03 | MHC.CM.PN ---
[facility] TRANSPORT RESCHEDULED FOR 3PM
[2024-03-01 15:30] VITALS: BP 97/53; PULSE 68; TEMP 36.9; O2SAT 99
--- NOTE | 2024-03-01 15:46 | PC.NURSE ---
Patient had lyft booked, stacker driver refused to have patient in car, patient was brought back to [facility], spoke with case management, Lilliana to book ambulance ride back to [place].
[2024-03-01 18:24] VITALS: BP 97/53; PULSE 68; RESP 18; TEMP 36.9; O2SAT 99
== END 2024-03-01 18:26 | disposition home or self-care (01) ==
PROVIDERS: Emergency Provider Internal Medicine; PCP Internal Medicine
DX: R41.82 Altered mental status, unspecified (principal); R56.9 Unspecified convulsions; R26.2 Difficulty in walking, not elsewhere classified; I44.0 Atrioventricular block, first degree; R51.9 Headache, unspecified; R94.31 Abnormal electrocardiogram [ECG] [EKG]; Z79.899 Other long term (current) drug therapy
CPT/HCPCS: 36415; 70450; 80053; 81003; 85025; 93005; 97161; 99285

== ENCOUNTER → 2024-02-29 19:17 | Outpatient (BNV) | payer MEDICARE, SELFPAY | PROVIDERS: Emergency Provider Internal Medicine; PCP Internal Medicine; Visit Provider Internal Medicine Cardiovascular Disease | DX: I44.0 Atrioventricular block, first degree (principal) | CPT/HCPCS: 93010 ==

== ENCOUNTER 2024-03-04 13:31 | Emergency (ER) | payer MEDICARE, SELFPAY ==
[2024-03-04] VITALS (24 sets, daily range): BP systolic 69–124; BP diastolic 38–72; PULSE 52–94; RESP 9–20; TEMP 33–36; O2SAT 96–100; BMI 16.8
--- NOTE | ~2024-03-04 | CT_ITS ---
EXAMINATION: CT HEAD WITHOUT CONTRAST CLINICAL INFORMATION: Fall. COMPARISON: Prior CT examinations as remote as 06/09/2018. TECHNIQUE: Contiguous axial imaging was performed from the skull base to vertex without intravenous administration of contrast. Multiplanar reformatted images are submitted. This CT examination was performed using dose optimization techniques as appropriate, variously including the following: *Automated exposure control *Adjustment of mA and/or kV according to patient size (this includes techniques or standardized protocols for targeted exams where dose is matched to indication/reason for exam; i.e. extremities or head) *Use of iterative reconstruction technique DLP: 712 mGy-cm FINDINGS: There is stable left temporal cortical mineralization, unchanged from multiple CT examinations including 06/09/2018. Again, there is generalized sulcal widening. The ventricular systems are normal in size and configuration. There is mild patchy low attenuation change in the periventricular white matter spaces. 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 A small stable calcification is seen within the posterior left rock radiata (2:37). No acute mass or hemorrhage is seen. There is no mass effect. The paranasal sinuses and mastoid air cells are well aerated and clear. No acute fracture is seen. CT/CT head/brain wo IV con IMPRESSION: 1. No acute intracranial pathology. There is no significant interim change. 2. 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 Again, recommend pituitary MRI for further characterization. 3. There is mild patchy low attenuation change in the periventricular white matter spaces, commonly associated with chronic microangiopathy. 4. There is chronic left temporal cortical mineralization.
--- NOTE | ~2024-03-04 | XR_ITS ---
EXAMINATION: XR CHEST CLINICAL INFORMATION: Central line placement COMPARISON: Previous chest x-ray May 2018 TECHNIQUE: Frontal view of the chest was obtained. FINDINGS: Right jugular line tip projects over SVC. No pneumothorax. Loop recorder projects over left chest, Interval from 2018. Cardiac and mediastinal contours are unremarkable. Lungs are clear. No pleural effusion or pneumothorax. No acute bone abnormality. XR/XR chest 1V IMPRESSION: Right jugular line tip projects over SVC. No pneumothorax.
--- NOTE | ~2024-03-04 | CT_ITS ---
EXAMINATION: CT ABDOMEN AND PELVIS WITH CONTRAST CLINICAL INFORMATION: Tenderness. Question source of infection COMPARISON: None available. TECHNIQUE: Multidetector volumetric images were obtained from the superior aspect of the liver through the pubic symphysis following administration 85 mL of Omnipaque 350 intravenous contrast. Sagittal and coronal reformatted images were obtained on the technologist's workstation. Oral contrast: No This CT examination was performed using dose optimization techniques as appropriate, variously including the following: *Automated exposure control *Adjustment of mA and/or kV according to patient size (this includes techniques or standardized protocols for targeted exams where dose is matched to indication/reason for exam; i.e. extremities or head) *Use of iterative reconstruction technique DLP: 581 mGy-cm FINDINGS: LUNG BASES: The visualized lung bases are unremarkable. LIVER, GALLBLADDER, AND BILIARY TREE: Mild periportal edema nonspecific. The liver is normal in size, shape, and attenuation. No focal hepatic lesion or biliary ductal dilatation is present. The gallbladder is unremarkable with no evidence of radiopaque gallstones, gallbladder wall thickening, or obvious pericholecystic inflammatory changes. PANCREAS: Unremarkable. SPLEEN: Unremarkable. ADRENAL GLANDS: Unremarkable. KIDNEYS AND URETERS: The kidneys are normal in size, shape, and attenuation. No hydronephrosis, hydroureter, or calculi seen. No perinephric stranding. Incidental small right lower pole cortical cyst. BLADDER: Forrester catheter are shifted decompresses the bladder. The bladder wall is diffusely thickened circumferentially nonspecific. Small amount of air within the bladder lumen presumably iatrogenic. GASTROINTESTINAL TRACT: There is severe diverticulosis particularly sigmoid colon. There is significant pharyngeal sigmoid colonic wall thickening with acute pericolonic inflammatory changes. This is suspicious for acute diverticulitis. No abscess or perforation. Moderate amount stool throughout the rest of the colon. Normal appendix. No small bowel pathology or evidence for obstruction. ABDOMINAL WALL: No significant hernia is appreciated. LYMPH NODES: Normal. VASCULAR: Unremarkable. PELVIC VISCERA: Unremarkable. OSSEOUS STRUCTURES: Unremarkable. CT/CT abdomen pelvis w IV con IMPRESSION: 1. Acute uncomplicated sigmoid diverticulitis. Follow-up following resolution of acute symptoms recommended to exclude an underlying lesion. There is focal wall thickening noted. Although nonspecific, no infiltrating lesion is not excluded. 2. Nonspecific bladder wall thickening. Fleischner guidelines were followed.
--- NOTE | 2024-03-04 13:57 | ECG_ITS ---
Test Reason : SIEZURE Blood Pressure : / mmHG Vent. Rate : 060 BPM Atrial Rate : 060 BPM P-R Int : 258 ms QRS Dur : 096 ms QT Int : 488 ms P-R-T Axes : 031 -27 054 degrees QTc Int : 488 ms Sinus rhythm with 1st degree A-V block Prolonged QT Abnormal ECG When compared with ECG of 29-FEB-2024 19:29, Premature supraventricular complexes are no longer Present QT has lengthened Referred By: Magalys Cha Electronically Signed By:CELIA LOOMIS
--- NOTE | 2024-03-04 13:58 | ED.SEIZURE ---
HPI - Seizure General Chief Complaint: Seizure Stated Complaint: SEIZURES AMS Time Seen by Provider: 03/04/24 13:56 Source: family and EMS Mode of arrival: EMS History of Present Illness HPI Narrative: 78-year-old male with known dementia/memory difficulties is brought in by EMS from [facility] after patient was discharged from care 1 on Tuesday. According to information gathered from 1 of patient's healthcare proxies patient has had intermittent medication noncompliance because he does not trust the person giving him the medication. Patient is also noted to have been seen here in this emergency room for seizure as well on 02/28. EMS provided 2 mg of Versed for seizures. EMS also endorses that they were unable to obtain further information from the [facility]. Patient has a signed MOLST from 2019. Related Data Home Medications ?Medication ?Instructions ?Recorded ?Confirmed calcipotriene 0.005 % topical cream 1 appl topical QAM 03/01/24 03/01/24 doxycycline monohydrate 100 mg 100 mg PO BID 03/01/24 03/01/24 capsule ergocalciferol (vitamin D2) 1,250 1,250 mcg PO QWEEK 03/01/24 03/01/24 mcg (50,000 unit) capsule furosemide 20 mg tablet 20 mg PO QAM 03/01/24 03/01/24 lamotrigine 100 mg tablet 125 mg PO BID 03/01/24 03/01/24 latanoprost 0.005 % eye drops 1 drp ophthalmic (eye) BEDTIME 03/01/24 03/01/24 levothyroxine 112 mcg tablet 112 mcg PO DAILY 03/01/24 03/01/24 prednisone 1 mg tablet 1 mg PO DAILY 03/01/24 03/01/24 rosuvastatin 20 mg tablet 20 mg PO DAILY 03/01/24 03/01/24 tacrolimus 0.1 % topical ointment 0.1 appl topical BID 03/01/24 03/01/24 testosterone cypionate 200 mg/mL 20 mg IM QWEEK 03/01/24 03/01/24 intramuscular oil topiramate 100 mg tablet 100 mg PO 03/01/24 Allergies Allergy/AdvReac Type Severity Reaction Status Date / Time No Known Allergies Allergy Verified 03/04/24 13:41 [No Known Allergies*] Review of Systems Review of Systems: Yes Unobtainable due to mental condition PMFSH Past Medical History Source: nursing notes reviewed Medical History Hypothyroidism Hyperlipidemia Seizure Social History Social History Unable to assess alcohol history related to: Unknown Alcohol intake: current Alcohol intake frequency: a few times a month Alcohol type: wine Use of substances other than those prescribed or required for medical reasons: Unknown Advance Directives: Yes Advance Directives on File: Yes Advance Directives Date on File: 03/02/24 Physical Exam Vital Signs: Vital Signs: Last Vital Signs Temp 93.6 F L 03/04/24 16:16 Pulse 55 03/04/24 16:16 Resp 10 L 03/04/24 16:16 BP 103/58 L 03/04/24 16:16 Pulse Ox 96 03/04/24 16:16 O2 Del Method Room Air 03/04/24 16:16 BMI result Body Mass Index 16.8 VITAL SIGNS: Reviewed. GENERAL: Cachectic, frail, in no acute distress. HEAD: Normocephalic/scabs in superficial bleeding noted to the vertex of patient's head EYES: PERRLA, EOMI EARS: Ext canals without abnormality, TMs non-bulging and non-erythematous NOSE: Nares patent bilateral OROPHARYNX: no oral lesions noted, posterior pharynx clear, dry mucosa NECK: Supple, no adenopathy LUNGS: Normal breath sounds. No adventitious sounds or accessory muscle use. SpO2<99> CARDIOVASCULAR: Regular rate and rhythm without noted murmurs ABDOMEN: Soft, non-tender, non-distended with bowel sounds. MUSCULOSKELETAL: No tenderness, deformities, or effusions noted on gross inspection. EXTREMITIES: No cyanosis, clubbing or edema. SKIN: Inspection of the skin reveals no rashes NEUROLOGIC: Drowsy and strength and sensation to light touch were grossly intact x 4. Medications Administered Generic Name Dose Route Start Last Admin Trade Name Freq PRN Reason Stop Dose Admin Norepinephrine Bitartrate 8 mg in 250 mls @ 0 mls/hr 03/04/24 14:00 03/04/24 14:44 Levophed IV 0.05 mcg/kg/min .Q0M SOMMER 4.58 mls/hr Administration Protocol Per Protocol Dextrose 1,000 mls @ 50 mls/hr 03/04/24 14:30 03/04/24 15:55 D10 IVCONT 0 mls/hr .Q20H SOMMER Infusion Discontinued Medications Generic Name Dose Route Start Last Admin Trade Name Aggie PRN Reason Stop Dose Admin Sodium Chloride 1,000 mls @ 999 mls/hr 03/04/24 14:00 03/04/24 15:55 Ns IV 03/04/24 15:00 Infused .Q1H1M SOMMER Infusion Medical Decision Making Medical Decision Making [facility] Narrative: 1335: 78-year-old male with history and clinical presentation consistent with what appears to be breakthrough seizures once again, unclear if poor medication compliance/infections/electrolyte derangements/intracranial etiology. 1345: I discussed patient with the listed emergency contact, Mamta Garland, who informs me that patient was discharged from care 1 on Tuesday with flying colors on Tuesday and then sent to [place] assisted living. She understands that patient has a bunch of seizures together and then recovers. When I confirmed that patient has dementia with memory difficulties she confirms that this is the case and when I attempt to clarify as situation where patient can get supervised administration of medications I am informed that they are in the process of making this happen. On further discussion regarding patient's MOLST, she is revoking patient's signed form from 2019, I did inform her that we would need either her or whomever is making decisions for the patient to come in and fill out a new form on behalf of the patient as well as provide healthcare proxy documentation. INTERVENTION: IV fluids, D10 250 cc, supplemental oxygen, Sanjay Hugger I reviewed all investigations and hematologic indices are negative for leukocytosis or left shift, there is a worsening normocytic anemia but still remained somewhat stable when compared to 03/2023. No history or gross overt evidence bleeding. Coagulation studies are within normal limits. Chemistry indices do not demonstrate an IRENE though kidney function is noted to be slight leave worsening could be secondary to poor oral intake/hydration, electrolytes are within normal limits and patient identified as hypothermic and low normal blood glucose and had sanjay hugger put in place. Liver enzymes are also within normal limits. Urinalysis is negative for UTI or hematuria. Stool occult blood is negative. 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 Will consider possible metabolic derangement of either the thyroid or pituitary and provide hydrocortisone to evaluate whether not patient can be titrated off of Levophed. Signed out to Dr Rico: - f/u BP, glucose, temp after Hydrocortisone dose - Consider admission to floor if able to titrate Levophed. Differential Diagnosis Differential Diagnoses: The differential diagnosis associated with the presentation includes Please see the discussion above Admission/Observation Consideration of admission/observation: Escalation of care including admission/observation considered Please see the discussion above Lab Data MDM Lab Attestation statement: I reviewed the patient's lab results. Please see the discussion above 03/04/24 14:16 03/04/24 14:16 Labs: Lab Results 03/04/24 03/04/24 03/04/24 Range/Units 13:44 14:16 14:47 WBC 5.0 (4.8-10.8) X10*3/uL RBC 2.94 L (4.60-5.80) X10*6/uL Hgb 8.9 L (14.0-18.0) g/dl Hct 26.1 L (42.0-52.0) % MCV 88.8 (80.0-98.0) fL MCH 30.3 (27.0-33.0) pg MCHC 34.1 (31.0-36.0) g/dl RDW 17.2 H (11.0-16.0) % Plt Count 166 (160-400) X10*3/uL MPV 10.3 (9.4-12.4) fL Immature Gran % (Auto) 0.4 (0.0-0.4) % Neut % (Auto) 70.2 (45-73) % Lymph % (Auto) 12.8 L (20-40) % Bertie % (Auto) 13.0 H (2-11) % Eos % (Auto) 3.2 (0-4) % Baso % (Auto) 0.4 (0-2) % Lymph # (Auto) 0.6 L (1.2-4.9) X10*3/uL Bertie # (Auto) 0.7 (0.1-1.2) X10*3/uL Eos # (Auto) 0.2 (0.0-0.4) X10*3/uL Baso # (Auto) 0.0 (0.0-0.2) X10*3/uL Abs Immat Gran (auto) 0.02 (0.00-0.03) X10*3/uL Absolute Neuts (auto) 3.5 (2.0-8.3) x10*3/uL Absolute Nucleated RBC 0.000 (0.0-0.012) X10*3/uL Nucleated RBC % (auto) 0.0 (0.0-0.2) /100WBC PT 12.3 (11.1-13.3) SEC INR 1.0 (0.9-1.1) Sodium 136 (135-145) mmol/L Potassium 4.0 (3.3-5.1) mmol/L Chloride 110 H (96-108) mmol/L Carbon Dioxide 21 L (22-29) mmol/L Anion Gap 9 L (12-20) BUN 32 H (9-16) mg/dL Creatinine 1.17 (0.5-1.4) mg/dL Estim Creat Clear Calc 34.7 Estimated GFR 60 POC Glucose 72 75 (60-115) mg/dL Random Glucose 73 (60-115) mg/dL Lactic Acid 1.0 (0.5-2.0) mmol/L Calcium 8.5 D (8.4-10.2) mg/dL Total Bilirubin 0.4 (0.0-1.0) mg/dL AST 36 (5-37) U/L ALT 26 (0-40) U/L Alkaline Phosphatase 91 (39-117) U/L Total Protein 4.9 L (6.5-8.0) g/dL Albumin 2.4 L (3.5-5.0) g/dL Urine Color Urine Appearance Urine pH (5.0-9.0) Ur Specific [place] (1.005-1.025) Urine Protein (Neg-Trace) mg/dL Urine Glucose (UA) (Negative) mg/dL Urine Ketones (Negative) mg/dL Urine Blood (Negative) Urine Nitrite (Negative) Ur Leukocyte Esterase (Negative) Stool Occult Blood (NEGATIVE) Blood Type Antibody Screen 03/04/24 03/04/24 03/04/24 Range/Units 15:13 15:24 15:30 WBC (4.8-10.8) X10*3/uL RBC (4.60-5.80) X10*6/uL Hgb (14.0-18.0) g/dl Hct (42.0-52.0) % MCV (80.0-98.0) fL MCH (27.0-33.0) pg MCHC (31.0-36.0) g/dl RDW (11.0-16.0) % Plt Count (160-400) X10*3/uL MPV (9.4-12.4) fL Immature Gran % (Auto) (0.0-0.4) % Neut % (Auto) (45-73) % Lymph % (Auto) (20-40) % Bertie % (Auto) (2-11) % Eos % (Auto) (0-4) % Baso % (Auto) (0-2) % Lymph # (Auto) (1.2-4.9) X10*3/uL Bertie # (Auto) (0.1-1.2) X10*3/uL Eos # (Auto) (0.0-0.4) X10*3/uL Baso # (Auto) (0.0-0.2) X10*3/uL Abs Immat Gran (auto) (0.00-0.03) X10*3/uL Absolute Neuts (auto) (2.0-8.3) x10*3/uL Absolute Nucleated RBC (0.0-0.012) X10*3/uL Nucleated RBC % (auto) (0.0-0.2) /100WBC PT (11.1-13.3) SEC INR (0.9-1.1) Sodium (135-145) mmol/L Potassium (3.3-5.1) mmol/L Chloride (96-108) mmol/L Carbon Dioxide (22-29) mmol/L Anion Gap (12-20) BUN (9-16) mg/dL Creatinine (0.5-1.4) mg/dL Estim Creat Clear Calc Estimated GFR POC Glucose 164 H (60-115) mg/dL Random Glucose (60-115) mg/dL Lactic Acid (0.5-2.0) mmol/L Calcium (8.4-10.2) mg/dL Total Bilirubin (0.0-1.0) mg/dL AST (5-37) U/L ALT (0-40) U/L Alkaline Phosphatase (39-117) U/L Total Protein (6.5-8.0) g/dL Albumin (3.5-5.0) g/dL Urine Color Yellow Urine Appearance Clear Urine pH 6.0 (5.0-9.0) Ur Specific [place] 1.010 (1.005-1.025) Urine Protein Negative (Neg-Trace) mg/dL Urine Glucose (UA) Negative (Negative) mg/dL Urine Ketones Negative (Negative) mg/dL Urine Blood Negative (Negative) Urine Nitrite Negative (Negative) Ur Leukocyte Esterase Negative (Negative) Stool Occult Blood (NEGATIVE) Blood Type O Positive Antibody Screen NEGATIVE 03/04/24 Range/Units 16:15 WBC (4.8-10.8) X10*3/uL RBC (4.60-5.80) X10*6/uL Hgb (14.0-18.0) g/dl Hct (42.0-52.0) % MCV (80.0-98.0) fL MCH (27.0-33.0) pg MCHC (31.0-36.0) g/dl RDW (11.0-16.0) % Plt Count (160-400) X10*3/uL MPV (9.4-12.4) fL Immature Gran % (Auto) (0.0-0.4) % Neut % (Auto) (45-73) % Lymph % (Auto) (20-40) % Bertie % (Auto) (2-11) % Eos % (Auto) (0-4) % Baso % (Auto) (0-2) % Lymph # (Auto) (1.2-4.9) X10*3/uL Bertie # (Auto) (0.1-1.2) X10*3/uL Eos # (Auto) (0.0-0.4) X10*3/uL Baso # (Auto) (0.0-0.2) X10*3/uL Abs Immat Gran (auto) (0.00-0.03) X10*3/uL Absolute Neuts (auto) (2.0-8.3) x10*3/uL Absolute Nucleated RBC (0.0-0.012) X10*3/uL Nucleated RBC % (auto) (0.0-0.2) /100WBC PT (11.1-13.3) SEC INR (0.9-1.1) Sodium (135-145) mmol/L Potassium (3.3-5.1) mmol/L Chloride (96-108) mmol/L Carbon Dioxide (22-29) mmol/L Anion Gap (12-20) BUN (9-16) mg/dL Creatinine (0.5-1.4) mg/dL Estim Creat Clear Calc Estimated GFR POC Glucose (60-115) mg/dL Random Glucose (60-115) mg/dL Lactic Acid (0.5-2.0) mmol/L Calcium (8.4-10.2) mg/dL Total Bilirubin (0.0-1.0) mg/dL AST (5-37) U/L ALT (0-40) U/L Alkaline Phosphatase (39-117) U/L Total Protein (6.5-8.0) g/dL Albumin (3.5-5.0) g/dL Urine Color Urine Appearance Urine pH (5.0-9.0) Ur Specific [place] (1.005-1.025) Urine Protein (Neg-Trace) mg/dL Urine Glucose (UA) (Negative) mg/dL Urine Ketones (Negative) mg/dL Urine Blood (Negative) Urine Nitrite (Negative) Ur Leukocyte Esterase (Negative) Stool Occult Blood NEGATIVE (NEGATIVE) Blood Type Antibody Screen Independent Interpretation I performed an independent interpretation of an: EKG Interpretation: Sinus rhythm with first-degree AV block, HR-60, no STEMI, AK-to 58, QRS is within normal limits and QTC is mildly prolonged with a prolonged QT. Radiology Impression Discussion of test interpretation with radiology: I have reviewed the radiologist's reading. Radiologist Impression: Please see the discussion above Independent Historian Clinical information obtained from an independent historian. History obtained from or confirmed by: EMS and Other Healthcare proxy, Mamta Pete External Record Review External record reviewed: Outpatient record, Prior outpatient labs and Prior outpatient radiology Chronic Conditions Patient?s care impacted by: Other Dementia, seizures Procedures Central Line Placement Right IJ: Time Out Performed: No Patient Placed on Monitor/Pulse Ox: Yes MD Prep: mask, gown and gloves Central Line Prep: Chlorhexidine scrub Local Anesthetic: lidocaine 1% Amount of anesthesia used (mL): 2 Ultrasound Used for Placement: Yes Central Line Lumen Inserted: triple Post Procedure: sutured in place, good blood return, all ports aspirated, flushed, capped and sterile dressing applied Post Procedure X-Ray: tip of catheter in good position and no pneumothorax seen Patient Tolerated Procedure: well Complications: none Critical Care Time Critical Care Time Critical Care Time: Yes Total Critical Care Time: 90 Attestation: I personally attest to this time spent taking care of the patient. Discharge Plan Discharge Clinical Impression: Epileptic seizure, Mass of pituitary Patient Disposition: Still a Patient Prescriptions: No Action prednisone 1 mg tablet 1 mg PO DAILY doxycycline monohydrate 100 mg capsule 100 mg PO BID calcipotriene 0.005 % cream 1 appl topical QAM furosemide 20 mg tablet 20 mg PO QAM ergocalciferol (vitamin D2) 1,250 mcg (50,000 unit) capsule 1,250 mcg PO QWEEK testosterone cypionate 200 mg/mL oil 20 mg IM QWEEK topiramate 100 mg tablet 100 mg PO Rx Instructions: 1.5 tablets rosuvastatin 20 mg tablet 20 mg PO DAILY lamotrigine 100 mg tablet 125 mg PO BID latanoprost 0.005 % drops 1 drp ophthalmic (eye) BEDTIME Rx Instructions: both eyes tacrolimus 0.1 % ointment 0.1 appl topical BID levothyroxine 112 mcg tablet 112 mcg PO DAILY Print Language: Hebrew
[2024-03-04] MEDS: 0.9 % Sodium Chloride 1,000 ML 999 ML IV (14:18)
[2024-03-04 14:21] LABS: MANUAL DIFF FLAG NO
[2024-03-04 14:23] LABS: Basophils Percent Auto 0.4 % (0-2); Eosinophils Absolute Auto 0.2 X10*3/uL (0.0-0.4); Eosinophils Percent Auto 3.2 % (0-4); Hematocrit 26.1 % (42.0-52.0); Hemoglobin 8.9 g/dl (14.0-18.0); Imm Gran Abs Auto 0.02 X10*3/uL (0.00-0.03); Imm Gran Pct Auto 0.4 % (0.0-0.4); Lymphocytes Absolute Auto 0.6 X10*3/uL (1.2-4.9); Lymphocytes Percent Auto 12.8 % (20-40); Mean Corpuscular HGB Conc 34.1 g/dl (31.0-36.0); Mean Corpuscular Hemoglobin 30.3 pg (27.0-33.0); Mean Corpuscular Volume 88.8 fL (80.0-98.0); Mean Platelet Volume 10.3 fL (9.4-12.4); Monocytes Absolute Auto 0.7 X10*3/uL (0.1-1.2); Neutrophils Absolute Auto 3.5 x10*3/uL (2.0-8.3); Neutrophils Percent Auto 70.2 % (45-73); Platelet Count 166 X10*3/uL (160-400); Red Blood Count 2.94 X10*6/uL (4.60-5.80); Red Cell Distribution Width 17.2 % (11.0-16.0)
[2024-03-04 14:40] LABS: Alanine Aminotransferase 26 U/L (0-40); Albumin Level 2.4 g/dL (3.5-5.0); Alkaline Phosphatase 91 U/L (39-117); Anion Gap 9 (12-20); Aspartate Amino Transferase 36 U/L (5-37); Bilirubin Total 0.4 mg/dL (0.0-1.0); Blood Urea Nitrogen 32 mg/dL (9-16); Calcium 8.5 mg/dL (8.4-10.2); Carbon Dioxide 21 mmol/L (22-29); Chloride 110 mmol/L (96-108); Creatinine Clr Calc Pharmacy 34.7; Estimated Glomerular Filt Rate 60; Glucose Random 73 mg/dL (60-115); Sodium 136 mmol/L (135-145); Total Protein 4.9 g/dL (6.5-8.0)
[2024-03-04] MEDS: Norepinephrine Bitartrate/D5W 8 MG/250 ML PLAST..BAG 4.58 MG IV (14:44)
[2024-03-04 14:48] LABS: Glucose, Whole Blood 72 mg/dL (60-115)
[2024-03-04 14:48] LABS: Prothrombin Time 12.3 SEC (11.1-13.3)
[2024-03-04 14:50] LABS: Glucose, Whole Blood 75 mg/dL (60-115)
[2024-03-04] MEDS: Dextrose 10 % 1,000 ML 50 ML IVCONT (14:50)
--- NOTE | 2024-03-04 14:56 | PC.NURSE ---
pt AVERY from [facility] assisted living where pt lives alone. unknown if pt has been taking his medications. per EMS he recently signed out of CARE 1. pt with a hx of dementia and seizures. pt BP found to be soft, 70s/40s upon arrival to room 4. EMS administered 4mg Versed en route for witnessed seizure activity. rectal temp low initially 94.7 - applied warm blankets. pt HR bradycardic in the 50s, saO2 maintaining well on room air. no minimally responsive to verbal stimuli, somnolent. 18G in R wrist from EMS, 1L NS infused without improvement to BP. Semaj made aware. order for NOrepi placed and started at 0.05 mcg/kg/min through 18G placed in R bicep. 16F temp sensing qiu placed, 10 ml saline in balloon. CORE temp 91.4 - sanjay hugger applied at this time. pt POC low 72. order placed for D10 250cc over [address] Cha spoke with pts family upon arrival of pt to room 4. [facility] had minimal information to provide EMS.
[2024-03-04 15:32] LABS: Appearance Urine Clear; Color Urine Yellow; Glucose Urine UA Negative (Negative); Leukocyte Esterase Urine Negative (Negative); Nitrite Urine Negative (Negative); Urine Blood Negative (Negative); Urine Ketones Negative (Negative); Urine Protein Negative (Neg-Trace)
[2024-03-04 15:34] LABS: Glucose, Whole Blood 164 mg/dL (60-115)
--- NOTE | 2024-03-04 16:14 | PC.NURSE ---
central line placed IJ by Dr. Cha
[2024-03-04 16:28] LABS: OBS Int Ctl Valid YES; OBS1 NEGATIVE (NEGATIVE)
--- NOTE | 2024-03-04 16:52 | PC.NURSE ---
medication blister packs sent to pharmacy
[2024-03-04] MEDS: Hydrocortisone Sod Succ/PF 100 MG VIAL IVPUSH (17:11)
[2024-03-04] MEDS: Lactated Ringers 1,000 ML 999 ML IV ×2 (17:22→21:09)
--- NOTE | 2024-03-04 17:22 | PC.NURSE ---
Ok to use central line per MD Farfan
[2024-03-04 17:35] LABS: C Reactive Protein 23.93 mg/dL (< or = 0.50)
[2024-03-04 17:40] LABS: B Type Natriuretic Peptide 126 pg/mL (<100)
[2024-03-04 17:53] LABS: Troponin-I High Sensitivity 3.1 ng/L (<3.5-35.0)
[2024-03-04 17:57] LABS: Procalcitonin 2.42 ng/mL
[2024-03-04] MEDS: cefTRIAXone sodium 2 GM in 0.9 % Sodium Chloride 50 ML IV (18:29)
[2024-03-04] MEDS: iohexoL 350 MG/ML 100 ML INFUS..BTL IV (18:47)
[2024-03-04 18:50] LABS: Glucose, Whole Blood 90 mg/dL (60-115)
--- NOTE | 2024-03-04 19:05 | PC.NURSE ---
Assumed care of pt. Assessment as documented in HtoT, Norepi running on central line, pt now on warm blankets with regulated temp. Current plan for possible admission to ICU unless downgrade possible.
[2024-03-04] MEDS: metroNIDAZOLE/NS 500 MG/100 ML PIGGYBACK 100 MG IV (19:39)
--- NOTE | 2024-03-04 20:40 | PC.NURSE ---
Attempting second trial off Norepi
--- NOTE | 2024-03-04 20:48 | PC.NURSE ---
Pt placed back on Celso hugger with no improvement in temp with warm blankets
[2024-03-04 20:49] LABS: Hematocrit 29.1 % (42.0-52.0); Hemoglobin 9.8 g/dl (14.0-18.0); Mean Corpuscular HGB Conc 33.7 g/dl (31.0-36.0); Mean Corpuscular Hemoglobin 29.9 pg (27.0-33.0); Mean Corpuscular Volume 88.7 fL (80.0-98.0); Mean Platelet Volume 10.8 fL (9.4-12.4); Platelet Count 170 X10*3/uL (160-400); Red Blood Count 3.28 X10*6/uL (4.60-5.80); Red Cell Distribution Width 17.2 % (11.0-16.0)
[2024-03-04 21:02] LABS: Lactic Acid 0.7 mmol/L (0.5-2.0)
[2024-03-04 21:05] LABS: VBG Base Excess -4.4 mmol/L; VBG HCO3 19 mmol/L (22-26); VBG pCO2 30 mmHg; VBG pH 7.41 (7.32-7.43); VBG pO2 133 mmHg
[2024-03-04 21:12] LABS: Anion Gap 10 (12-20); Blood Urea Nitrogen 23 mg/dL (9-16); Calcium 8.6 mg/dL (8.4-10.2); Carbon Dioxide 19 mmol/L (22-29); Chloride 112 mmol/L (96-108); Creatinine Clr Calc Pharmacy 46.2; Estimated Glomerular Filt Rate > 60; Glucose Random 101 mg/dL (60-115); Sodium 137 mmol/L (135-145)
[2024-03-04 21:21] LABS: SLIDE REVIEW MANUAL DIFF
[2024-03-04 21:22] LABS: Venous Blood Gas Refer to POC result
[2024-03-04 21:26] LABS: Atypical Lymph Absolute Manual 0.1 x10*3/uL; Atypical Lymphs Percent Manual 1 % (0-6); Lymphocytes Absolute Manual 0.2 X10*3/uL (1.2-4.9); Lymphocytes Percent Manual 4 % (20-40); Monocytes Absolute Manual 0.1 X10*3/uL (0.1-1.2); Monocytes Percent Manual 1 % (2-11); Neutrophils Percent Manual 94 % (45-73)
[2024-03-04 21:27] LABS: Acanthocytes 1+ (0-2) /OIF; Burr Cells 3+ (>5) /OIF; Ovalocytes 1+ (5-14) /OIF; RBC Morphology NOTED; Schistocytes 1+ (0-2) /OIF
[2024-03-04 21:29] LABS: Platelet Estimate NORMAL (NORMAL); Platelet Morphology Comment NORMAL
[2024-03-04 21:49] LABS: Thyroid Stimulating Hormone < 0.01 uIU/mL (0.32-4.0)
--- NOTE | 2024-03-04 22:15 | PC.NURSE ---
trial off Norepi not successful
--- NOTE | 2024-03-04 23:01 | PC.NURSE ---
Per MD Rico, trialing Norepi on 1/2 base dose (0.025) to target MAP of 65, given multiple failed attempts to trial pt off norepi.
[2024-03-04] MEDS: Lactated Ringers 1,000 ML 100 ML IVCONT (23:07)
[2024-03-05] VITALS (7 sets, daily range): BP systolic 99–114; BP diastolic 56–63; PULSE 60–70; RESP 14–60; TEMP 36.4–37.2; O2SAT 97–100
[2024-03-05] MEDS: Hydrocortisone Sod Succ/PF 100 MG VIAL IVPUSH (00:40)
[2024-03-05] MEDS: metroNIDAZOLE/NS 500 MG/100 ML PIGGYBACK 100 MG IV (03:32)
--- NOTE | 2024-03-05 04:29 | PC.NURSE ---
Gave report to Tere RN, [facility] ICU receiving nurse. No transport available until 6-7am. pt expected on [facility], room 776, [facility] Physician Mitchell Carver. Phone for contact [phone]
--- NOTE | 2024-03-05 04:50 | PC.NURSE ---
After initially demonstrating very minimal verbal response, pt woke and able to hold conversation. Speech remains muffled as previous, but pt now able to ask questions independently. pt remains AxO x2 only at this time.
--- NOTE | 2024-03-05 08:25 | PC.NURSE ---
assumed care of pt at 0700. pt wakes to voice, is more alert than when pt arrived and most portion of the night per LLUVIA Varma. pt able to answer questions, soft spoken. VSS. updated in pt worklist. pt to be transported to [facility]. LR running at 100/hr, epi running at 0/025, BPs maintaining. qiu emptied, ~1125cc of clear, yellow urine. report given by Kojo to [facility] RN. t/w gave report to EMS. pt en route to [facility].
[2024-03-08 03:49] LABS: Topiramate 6.2 mcg/mL (see note)
[2024-03-08 16:53] LABS: Lamotrigine Lamictal 7.8 mcg/mL (2.5-15.0)
== END 2024-03-05 08:30 | disposition still patient (30) ==
PROVIDERS: Student in an Organized Health Care Education/Training Program; Emergency Provider Emergency Medicine; PCP Internal Medicine
DX: G40.909 Epilepsy, unspecified, not intractable, without status epilepticus (principal); E23.6 Other disorders of pituitary gland; I95.9 Hypotension, unspecified; T68.XXXA Hypothermia, initial encounter; R00.1 Bradycardia, unspecified; F03.90 Unspecified dementia, unspecified severity, without behavioral disturbance, psychotic disturbance, mood disturbance, and anxiety; D64.9 Anemia, unspecified; Z91.148 Patient's other noncompliance with medication regimen for other reason
CPT/HCPCS: 36415; 36556; 70450; 71045; 74177; 80048; 80053; 80175; 80201; 81003; 82272; 82803; 82947; 83605; 83880; 84145; 84443; 84484; 85007; 85025; 85027; 85610; 86140; 86850; 86900; 86901; 87040; 93005; 96361; 96365; 96366; 96367; 96368; 96375; 96376; 99285; J0696; J1720; J1836; J7120; Q9967

== ENCOUNTER → 2024-03-04 13:57 | Outpatient (BNV) | payer MEDICARE, SELFPAY | PROVIDERS: Emergency Provider Emergency Medicine; PCP Internal Medicine; Visit Provider Internal Medicine | DX: I45.81 Long QT syndrome (principal) | CPT/HCPCS: 93010 ==

== ENCOUNTER 2024-03-31 17:42 | Emergency (ER) | payer MEDICARE, SELFPAY ==
--- NOTE | ~2024-03-31 | XR_ITS ---
EXAMINATION: XR CHEST CLINICAL INFORMATION: Fall. Pain. COMPARISON: Chest x-ray dated 03/04/2024. TECHNIQUE: AP view of the chest was obtained. FINDINGS: Multiple EKG leads overlie the chest. Loop recorder is seen overlying the left lower heart. The cardiomediastinal silhouette is within normal limits in size. Calcification and tortuosity of the aorta is seen. Lungs bilaterally are symmetrically expanded. Mild coarsening of bronchovascular markings again noted, similar to the prior exam. No focal consolidation, effusion or pneumothorax is seen. No definite displaced rib fractures seen. Multilevel degenerative changes noted in the spine. XR/XR chest 1V IMPRESSION: * No acute cardiopulmonary process. * No definite displaced rib fractures seen. * Tortuous and calcified aorta.
--- NOTE | ~2024-03-31 | CT_ITS ---
EXAMINATION: CT head/brain wo IV con CT cervical spine wo IV con INDICATION INFORMATION: Fall COMPARISON: CT head 03/04/2024 TECHNIQUE: Separate noncontrast CT examinations of the head and cervical spine were performed. Coronal and sagittal reformats were obtained at the acquisition workstation. This CT examination was performed using dose optimization techniques as appropriate, variously including the following: * Automated exposure control * Adjustment of mA and/or kV according to patient size (this includes techniques or standardized protocols for targeted exams where dose is matched to indication/reason for exam; i.e. extremities or head) * Use of iterative reconstruction technique DLP: 901 mGy-cm FINDINGS: HEAD: Stable left temporal cortical mineralization unchanged dating back to 2018. Parasellar mass measures 1.8 cm in maximum transverse dimension (series #7 axial image 99), similar to prior. Proportional prominence of the ventricles and sulcal spaces is consistent with mild volume loss. Patchy periventricular and deep white matter hypoattenuation is consistent with moderate small vessel ischemic changes. There is no evidence of acute intracranial hemorrhage or territorial infarction. Kaye to white matter differentiation is well preserved. No abnormal mass effect or midline shift is seen. No extra-axial fluid collections are identified. No hydrocephalus. The cerebellar tonsils are well positioned. No acute osseous or soft tissue abnormality. Visualized portions of the orbits are unremarkable. Mucoperiosteal thickening in the left maxillary and ethmoid sinuses. Sphenoid sinus is nearly completely filled. The right maxillary and ethmoid air cells are well aerated. The mastoid air cells are well-aerated. Small volume cerumen in the right external artery canal. CERVICAL SPINE: No evidence of acute fracture or traumatic subluxation of the cervical spine. There is straightening of the normal cervical curvature with otherwise maintained sagittal alignment. Vertebral body heights are maintained. There is multilevel intervertebral disc space narrowing with endplate osteophyte formation and facet arthropathy, most notably at C5-C6. The atlantoaxial and atlantooccipital articulations are intact. No prevertebral soft tissue swelling. There is no cervical lymphadenopathy. The visualized thyroid gland is unremarkable. The visualized lung apices are clear. CT/CT cervical spine wo IV con IMPRESSION: 1. No acute intracranial and musculature edematous territorial infarction. Chronic changes as described above. 2. 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 If clinically warranted, pituitary protocol MRI is recommended for further assessment. 3. No acute osseous abnormality within the cervical spine. Moderate multilevel cervical spondylosis.
[2024-03-31 17:45] VITALS: BP 111/61; PULSE 72; O2SAT 97
--- NOTE | 2024-03-31 18:01 | ECG_ITS ---
Test Reason : FALL Blood Pressure : / mmHG Vent. Rate : 060 BPM Atrial Rate : 060 BPM P-R Int : 268 ms QRS Dur : 108 ms QT Int : 464 ms P-R-T Axes : 069 013 044 degrees QTc Int : 464 ms Sinus rhythm with 1st degree A-V block Otherwise normal ECG When compared with ECG of 04-MAR-2024 13:38, No significant change was found Referred By: Yuval Merchant Electronically Signed By:Freddy Lindquist
--- NOTE | 2024-03-31 18:06 | ED.FALL ---
HPI - Fall General Chief Complaint: Fall Stated Complaint: UNWIT FALL,CONFUSION Time Seen by Provider: 03/31/24 17:51 Source: EMS and old records reviewed Mode of arrival: EMS Limitations: no limitations History of Present Illness HPI Narrative: 78-year-old male with 78-year-old male with history of hypopituitarism, SIADH, hyperlipidemia, hyponatremia, paroxysmal AFib, seizure, moderate dementia patient presented by EMS [facility]. Patient is unable to give a reliable history due to dementia and do not recall how he fell. Patient had previous ED visits for seizure taking Keppra. Related Data Home Medications ?Medication ?Instructions ?Recorded ?Confirmed calcipotriene 0.005 % topical cream 1 appl topical QAM 03/01/24 03/01/24 doxycycline monohydrate 100 mg 100 mg PO BID 03/01/24 03/01/24 capsule ergocalciferol (vitamin D2) 1,250 1,250 mcg PO QWEEK 03/01/24 03/01/24 mcg (50,000 unit) capsule furosemide 20 mg tablet 20 mg PO QAM 03/01/24 03/01/24 lamotrigine 100 mg tablet 125 mg PO BID 03/01/24 03/01/24 latanoprost 0.005 % eye drops 1 drp ophthalmic (eye) BEDTIME 03/01/24 03/01/24 levothyroxine 112 mcg tablet 112 mcg PO DAILY 03/01/24 03/01/24 prednisone 1 mg tablet 1 mg PO DAILY 03/01/24 03/01/24 rosuvastatin 20 mg tablet 20 mg PO DAILY 03/01/24 03/01/24 tacrolimus 0.1 % topical ointment 0.1 appl topical BID 03/01/24 03/01/24 testosterone cypionate 200 mg/mL 20 mg IM QWEEK 03/01/24 03/01/24 intramuscular oil topiramate 100 mg tablet 100 mg PO 03/01/24 Allergies Allergy/AdvReac Type Severity Reaction Status Date / Time No Known Allergies Allergy Verified 03/31/24 18:17 [No Known Allergies*] Review of Systems Review of Systems: All other systems are reviewed and are negative Constitutional: Reports as per HPI and Reports no additional constitutional complaints Eyes: Reports as per HPI and Reports no additional eye complaints Reports system reviewed and no additional complaints, except as documented Cardiovascular: Reports as per HPI and Reports no additional cardiovascular complaints Respiratory: Reports as per HPI and Reports no additional respiratory complaints Gastrointestinal: Reports as per HPI and Reports no additional gastrointestinal complaints Genitourinary: Reports no additional female genitourinary complaints Musculoskeletal: Reports no additional musculoskeletal complaints Skin/Breast: Reports system reviewed and no additional complaints, except as docu Psychiatric: Reports no additional psychiatric complaints Endocrine: Reports no additional endocrine complaints Hematologic/Lymphatic: Reports no additional hematologic/lymphatic complaints Allergic/Immunologic: Reports no additional allergic/immunologic complaints Reports system reviewed and no additional complaints, except as documented and Reports Abnormal speech present [facility] Past Medical History Medical History Hypothyroidism Hyperlipidemia Seizure Social History Social History Unable to assess alcohol history related to: Unknown Alcohol intake: current Alcohol intake frequency: a few times a month Alcohol type: wine Smoked in Last 30 Days: No Use of substances other than those prescribed or required for medical reasons: Unable to respond Advance Directives: Yes Advance Directives on File: Yes Advance Directives Date on File: 03/02/24 Do you have a plan to hurt others: No Plan Physical Exam Vital Signs: Vital Signs: Last Vital Signs Temp 97.3 F 03/31/24 22:35 Pulse 71 03/31/24 22:35 Resp 14 03/31/24 22:35 BP 125/68 03/31/24 22:35 Pulse Ox 100 03/31/24 22:35 O2 Del Method Room Air 03/31/24 22:35 BMI result Body Mass Index 17.7 Vital signs have been reviewed and appear to be correct. Blood pressure elevated. Heart rate normal. Respiratory rate normal. Temperature normal. Oxygen saturation normal. Appearance: Alert. . No acute distress. Head: Normal external exam. Normocephalic. Superficial laceration on the top of the forehead area, No Sam signs noted. No raccoon eyes noted Eyes: PERRLA. EOMI. Conjunctiva and sclera normal. Eyelids normal. ENT: TM's Normal. Pharynx normal. Uvula midline. Moist mucous membranes. No trismus noted. No drooling noted. No muffled voice noted. Neck: Normal inspection. Neck supple. FROM. No adenopathy. Thyroid Normal. No meningeal signs. No neck mass noted. CVS: Normal heart rate and rhythm. Heart sound normal. No murmurs noted. Pulses normal throughout. Respiratory: No respiratory distress. Painless inspiration. Breath sounds normal. No wheezes/rales/rhonchi noted. Chest nontender. No accessory muscle usage noted or decreased air movement noted. Abdomen: Soft and nontender. Bowel sounds normal in all 4 quadrants. No distention noted. No organomegaly noted. No visible injury noted. Back: No CVA tenderness. Full range of motion noted. Skin: Skin warm and dry. Normal skin color. Normal skin turgor. No rashes/lesions/lacerations noted. Extremities: No lower extremity edema. Extremities exhibit normal range of motion. Extremities nontender. Neuro: Disoriented X 3. Cranial nerve exam: II-XII are grossly intact No motor deficit. No sensory deficit. Reflexes normal. Course Reevaluation(s) Reevaluation #1: S/p mechanical fall, known history of dementia. Unremarkable CT head and cervical spine with no acute findings, chest x-ray is unremarkable. Time: 01:17 Medications Administered Discontinued Medications Generic Name Dose Route Start Last Admin Trade Name Freq PRN Reason Stop Dose Admin Sodium Chloride 1,000 mls @ 999 mls/hr 03/31/24 17:59 03/31/24 22:04 Ns IV 03/31/24 18:59 Infused .Q1H1M ONE Infusion Medical Decision Making Differential Diagnosis Differential Diagnoses: The differential diagnosis associated with the presentation includes (ACS, intracranial bleed, rhabdomyolysis, electrolyte derangement, severe anemia, cervical spine fracture, chest trauma, abdominal trauma, extremity trauma.) Admission/Observation Consideration of admission/observation: Escalation of care including admission/observation considered Lab Data MDM Lab Attestation statement: I reviewed the patient's lab results. 03/31/24 18:30 03/31/24 18:30 Labs: Lab Results 03/31/24 Range/Units 18:30 WBC 10.3 (4.8-10.8) X10*3/uL RBC 3.44 L (4.60-5.80) X10*6/uL Hgb 10.4 L (14.0-18.0) g/dl Hct 30.5 L (42.0-52.0) % MCV 88.7 (80.0-98.0) fL MCH 30.2 (27.0-33.0) pg MCHC 34.1 (31.0-36.0) g/dl RDW 17.7 H (11.0-16.0) % Plt Count 249 D (160-400) X10*3/uL MPV 10.0 (9.4-12.4) fL Immature Gran % (Auto) 0.6 H (0.0-0.4) % Neut % (Auto) 81.8 H (45-73) % Lymph % (Auto) 7.7 L (20-40) % Swain % (Auto) 9.0 (2-11) % Eos % (Auto) 0.5 (0-4) % Baso % (Auto) 0.4 (0-2) % Lymph # (Auto) 0.8 L (1.2-4.9) X10*3/uL Swain # (Auto) 0.9 (0.1-1.2) X10*3/uL Eos # (Auto) 0.1 (0.0-0.4) X10*3/uL Baso # (Auto) 0.0 (0.0-0.2) X10*3/uL Abs Immat Gran (auto) 0.06 H (0.00-0.03) X10*3/uL Absolute Neuts (auto) 8.5 H (2.0-8.3) x10*3/uL Absolute Nucleated RBC 0.000 (0.0-0.012) X10*3/uL Nucleated RBC % (auto) 0.0 (0.0-0.2) /100WBC Sodium 136 (135-145) mmol/L Potassium 4.0 (3.3-5.1) mmol/L Chloride 108 (96-108) mmol/L Carbon Dioxide 19 L (22-29) mmol/L Anion Gap 13 (12-20) BUN 23 H (9-16) mg/dL Creatinine 1.17 (0.5-1.4) mg/dL Estim Creat Clear Calc 37.5 Estimated GFR 60 Random Glucose 102 (60-115) mg/dL Calcium 9.4 D (8.4-10.2) mg/dL Total Bilirubin 0.4 (0.0-1.0) mg/dL Direct Bilirubin 0.2 (0.0-0.5) mg/dL AST 19 (5-37) U/L ALT 10 (0-40) U/L Alkaline Phosphatase 105 (39-117) U/L Total Creatine Kinase 71 (38-174) U/L Troponin I High Sens 4.3 (<3.5-35.0) ng/L Total Protein 5.8 L (6.5-8.0) g/dL Albumin 3.1 L (3.5-5.0) g/dL Lipase 8 (8-78) U/L Independent Interpretation I performed an independent interpretation of an: CT Scan (Head and C-spine:1. No acute intracranial and musculature edematous territorial infarction. Chronic changes as described above. 2. 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 If clinically warranted, pituitary protocol MRI is recommended for further assessment. 3. No acute o) Radiology Impression Discussion of test interpretation with radiology: I have reviewed the radiologist's reading. Chronic Conditions Patient?s care impacted by: Other (Dementia) Discharge Plan Discharge Clinical Impression: Accident due to mechanical fall without injury, Superficial bruising Patient Disposition: Xfer [facility] Prescriptions: No Action prednisone 1 mg tablet 1 mg PO DAILY doxycycline monohydrate 100 mg capsule 100 mg PO BID calcipotriene 0.005 % cream 1 appl topical QAM furosemide 20 mg tablet 20 mg PO QAM ergocalciferol (vitamin D2) 1,250 mcg (50,000 unit) capsule 1,250 mcg PO QWEEK testosterone cypionate 200 mg/mL oil 20 mg IM QWEEK topiramate 100 mg tablet 100 mg PO Rx Instructions: 1.5 tablets rosuvastatin 20 mg tablet 20 mg PO DAILY lamotrigine 100 mg tablet 125 mg PO BID latanoprost 0.005 % drops 1 drp ophthalmic (eye) BEDTIME Rx Instructions: both eyes tacrolimus 0.1 % ointment 0.1 appl topical BID levothyroxine 112 mcg tablet 112 mcg PO DAILY Print Language: Nepalese
[2024-03-31 18:16] VITALS: BP 126/65; PULSE 59; RESP 8; TEMP 35.6; O2SAT 99; BMI 17.7
[2024-03-31 18:34] LABS: MANUAL DIFF FLAG NO
[2024-03-31 18:35] LABS: Basophils Percent Auto 0.4 % (0-2); Eosinophils Absolute Auto 0.1 X10*3/uL (0.0-0.4); Eosinophils Percent Auto 0.5 % (0-4); Hematocrit 30.5 % (42.0-52.0); Hemoglobin 10.4 g/dl (14.0-18.0); Imm Gran Abs Auto 0.06 X10*3/uL (0.00-0.03); Imm Gran Pct Auto 0.6 % (0.0-0.4); Lymphocytes Absolute Auto 0.8 X10*3/uL (1.2-4.9); Lymphocytes Percent Auto 7.7 % (20-40); Mean Corpuscular HGB Conc 34.1 g/dl (31.0-36.0); Mean Corpuscular Hemoglobin 30.2 pg (27.0-33.0); Mean Corpuscular Volume 88.7 fL (80.0-98.0); Monocytes Absolute Auto 0.9 X10*3/uL (0.1-1.2); Neutrophils Absolute Auto 8.5 x10*3/uL (2.0-8.3); Neutrophils Percent Auto 81.8 % (45-73); Platelet Count 249 X10*3/uL (160-400); Red Blood Count 3.44 X10*6/uL (4.60-5.80); Red Cell Distribution Width 17.7 % (11.0-16.0); White Blood Count 10.3 X10*3/uL (4.8-10.8)
[2024-03-31 18:51] LABS: Alanine Aminotransferase 10 U/L (0-40); Albumin Level 3.1 g/dL (3.5-5.0); Alkaline Phosphatase 105 U/L (39-117); Anion Gap 13 (12-20); Aspartate Amino Transferase 19 U/L (5-37); Bilirubin Direct 0.2 mg/dL (0.0-0.5); Bilirubin Total 0.4 mg/dL (0.0-1.0); Blood Urea Nitrogen 23 mg/dL (9-16); Calcium 9.4 mg/dL (8.4-10.2); Carbon Dioxide 19 mmol/L (22-29); Chloride 108 mmol/L (96-108); Creatinine Clr Calc Pharmacy 37.5; Estimated Glomerular Filt Rate 60; Glucose Random 102 mg/dL (60-115); Lipase 8 U/L (8-78); Sodium 136 mmol/L (135-145); Total Protein 5.8 g/dL (6.5-8.0)
[2024-03-31] MEDS: 0.9 % Sodium Chloride 1,000 ML 999 ML IV (18:51)
--- NOTE | 2024-03-31 18:51 | PC.NURSE ---
applied condom cath to collect urine sample
[2024-03-31 18:58] LABS: Troponin-I High Sensitivity 4.3 ng/L (<3.5-35.0)
[2024-03-31 19:24] VITALS: BP 128/67; PULSE 58; RESP 13; TEMP 36.4; O2SAT 100
--- NOTE | 2024-03-31 19:28 | PC.NURSE ---
this rn assumed care of pt. pt resting in stretcher, respirations even and unlabored. pt has c-collar in place at this time. pt noted to have scabs on the frontal scalp, pt unsure where those are from. pt is alert to self and place at this time, pt is unsure of year. vss; call [facility] within reach.
[2024-03-31 22:35] VITALS: BP 125/68; PULSE 71; RESP 14; TEMP 36.3; O2SAT 100
--- NOTE | 2024-04-01 00:22 | PC.NURSE ---
pt noted to remove [place] catheter at this time, pt noted to have incontinent urine, pt [facility] with bed [facility] [place] [facility].
--- NOTE | 2024-04-01 01:31 | PC.NURSE ---
this rn cleaned pt scalp scabs with normal saline at this time. pt tolerated well.
--- NOTE | 2024-04-01 01:43 | PC.NURSE ---
report called to Luke Eubanks. this rn stand by assisted pt to ambulate, pt ambulated with steady gait, denies any sob and chest pain. pt assisted back into bed.
[2024-04-01 01:46] VITALS: BP 106/52; PULSE 63; RESP 14; TEMP 36.9; O2SAT 97
[2024-04-01 01:57] LABS: Appearance Urine Clear; Color Urine Yellow; Glucose Urine UA Negative (Negative); Leukocyte Esterase Urine Negative (Negative); Nitrite Urine Negative (Negative); Urine Blood Negative (Negative); Urine Ketones Trace mg/dL (Negative); Urine Protein Trace mg/dL (Neg-Trace)
[2024-04-01 02:32] VITALS: BP 106/52; PULSE 63; RESP 14; TEMP 36.9; O2SAT 97
--- NOTE | 2024-04-01 02:32 | PC.NURSE ---
ems at bedside to transport pt to [facility].
== END 2024-04-01 02:33 | disposition skilled nursing facility (03) ==
PROVIDERS: Emergency Provider Emergency Medicine
DX: F03.90 Unspecified dementia, unspecified severity, without behavioral disturbance, psychotic disturbance, mood disturbance, and anxiety (principal); Z91.81 History of falling; E22.2 Syndrome of inappropriate secretion of antidiuretic hormone; I48.0 Paroxysmal atrial fibrillation
CPT/HCPCS: 36415; 70450; 71045; 72125; 80048; 80076; 81003; 82550; 83690; 84484; 85025; 93005; 96360; 96361; 99285

== ENCOUNTER → 2024-03-31 18:01 | Outpatient (BNV) | payer MEDICARE, SELFPAY | PROVIDERS: Emergency Provider Emergency Medicine; Visit Provider Internal Medicine Cardiovascular Disease | DX: I44.0 Atrioventricular block, first degree (principal) | CPT/HCPCS: 93010 ==

== ENCOUNTER 2024-04-03 13:51 | Emergency (ER) | payer MEDICARE, SELFPAY ==
--- NOTE | ~2024-04-03 | CT_ITS ---
EXAMINATION: CT HEAD WITHOUT CONTRAST CT CERVICAL SPINE WITHOUT CONTRAST CLINICAL INFORMATION: Fall. Dementia. Head injury. COMPARISON: CT head and cervical spine March 31, 2024 TECHNIQUE: Imaging was performed from the skull base to vertex without intravenous administration of contrast. In addition, helical noncontrast CT imaging was acquired through the cervical spine and source images were reviewed along with axial reconstructions and sagittal and coronal MPRs. [This CT examination was performed using dose optimization techniques as appropriate, variously including the following: *Automated exposure control *Adjustment of mA and/or kV according to patient size (this includes techniques or standardized protocols for targeted exams where dose is matched to indication/reason for exam; i.e. 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 Axial image 146/268 series 5. This mass appears to be contiguous with the density opacifying the sphenoid sinus and extending into the left side of the nasopharynx with loss of the floor of the sphenoid sinus. There is a bone defect through the posterior wall the sphenoid sinus which this mass extends sagittal image 71/148 series 8. There is adjacent osteosclerotic changes of the bony wall adjacent to the mass at the superior margin of the clivus and the posterior wall the sphenoid sinus. There is a small hyperdensity in the left centrum semiovale in the parietal lobe axial image 77/268 series 5. This measures about 3 mm. This is unchanged since CAT scan March 31, 2024 and April 02, 2023. Stable cortical gyral calcification in the left Temporal lobe. This may be dystrophic or postinflammatory or related to old trauma or infarct. Axial image 149/268 series 5. There is generalized global volume loss. There is mild prominence of the ventricles and the sulci . There is mild hypodensity of the periventricular white matter due to chronic small vessel ischemic disease. There are vascular calcifications of the internal carotid arteries bilaterally. There is no acute intracranial hemorrhage, or midline shift is visualized. There is no extra-axial collection. There is no mass effect. CERVICAL SPINE: There is no evidence of acute cervical spine fracture. Vertebral bodies remain normal in height. Cervical vertebrae have normal alignment. There is multilevel degenerative spondylosis of the cervical spine with disc height narrowing and endplate spurs and facet joint arthrosis No pre- or paravertebral soft tissue abnormality is identified. Limited assessment of the lung apices is unremarkable. CT/CT cervical spine wo IV con IMPRESSION: 1. No acute intracranial pathology. 2. 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 MRI with and without contrast recommended for follow-up. 3. No CT evidence of acute cervical spine fracture or traumatic subluxation. This critical result was discussed with Dr Rico on 04/03/2024, 5:20 PM and it was ascertained that the content and urgency of the report was understood at the time of direct communication.
[2024-04-03 13:59] VITALS: BP 117/64; BP 125/62; PULSE 65; PULSE 70; RESP 20; TEMP 37.2; O2SAT 98; O2SAT 99; BMI 22.8
--- NOTE | 2024-04-03 14:11 | ED.GENADULT ---
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 The patient recently started living at an assisted living facility, the [facility]. Patient 1st moved into the assisted living facility last month but very soon became ill and came to the hospital here. Here he was transferred to [facility] in [place]. He was transferred there because of his complex neuroendocrine problems. Since being discharged from [facility] the patient went to the [facility] rehab facility until 1 week ago when he returned to the [facility]. Staff at the assisted living facility said that the patient has been reluctant to allow a lot of basic hygiene interventions such as toenail care and bathing. However the patient does accept medications being given to him. Apparently the patient seemed to be acting somewhat strangely today when he wandered into a public space naked. He was encouraged to go back to his room. When staff checked on him a little while later he seemed to have blood coming from his nose and they thought that he might be exhibiting seizure-like activity. At that point they called 911 and he was brought to the hospital. Paramedics report finding the patient unresponsive on his bed with a blood sugar of 68. The patient was given D10 and transported to the hospital. By the time the patient arrived here at the hospital he was much more alert. I spoke to staff at the assisted living facility. There is no report of any fever or other signs of illness prior to the acute events of this afternoon. Related Data Home Medications ?Medication ?Instructions ?Recorded ?Confirmed calcipotriene 0.005 % topical cream 1 appl topical QAM 03/01/24 03/01/24 doxycycline monohydrate 100 mg 100 mg PO BID 03/01/24 03/01/24 capsule ergocalciferol (vitamin D2) 1,250 1,250 mcg PO QWEEK 03/01/24 03/01/24 mcg (50,000 unit) capsule furosemide 20 mg tablet 20 mg PO QAM 03/01/24 03/01/24 lamotrigine 100 mg tablet 125 mg PO BID 03/01/24 03/01/24 latanoprost 0.005 % eye drops 1 drp ophthalmic (eye) BEDTIME 03/01/24 03/01/24 levothyroxine 112 mcg tablet 112 mcg PO DAILY 03/01/24 03/01/24 prednisone 1 mg tablet 1 mg PO DAILY 03/01/24 03/01/24 rosuvastatin 20 mg tablet 20 mg PO DAILY 03/01/24 03/01/24 tacrolimus 0.1 % topical ointment 0.1 appl topical BID 03/01/24 03/01/24 testosterone cypionate 200 mg/mL 20 mg IM QWEEK 03/01/24 03/01/24 intramuscular oil topiramate 100 mg tablet 100 mg PO 03/01/24 Allergies Allergy/AdvReac Type Severity Reaction Status Date / Time No Known Allergies Allergy Verified 04/03/24 14:07 [No Known Allergies*] Review of Systems Review of Systems: Yes all other systems are reviewed and are negative [facility] Past Medical History Medical History Hypothyroidism Hyperlipidemia Seizure Social History Social History Unable to assess alcohol history related to: Unknown Alcohol intake: current Alcohol intake frequency: a few times a month Alcohol type: wine Advance Directives: Yes Advance Directives on File: Yes Advance Directives Date on File: 03/02/24 Physical Exam ED Vital Signs: Vital Signs - 24 hr 04/03/24 13:59 04/03/24 16:31 Temperature 99 F 98.7 F Pulse Rate 70 57 Respiratory Rate 20 16 Blood Pressure 125/62 115/61 Pulse Oximetry 99 99 Oxygen Delivery Method Room Air Room Air BMI result Body Mass Index 22.8 Const Other: The patient is a cachectic looking 78-year-old man who was awake and alert. He looks poorly kempt but not in distress. He seems disoriented in a manner consistent with dementia. Does not seem obviously acutely ill. HENMT Other: No obvious signs of trauma to the head or the face. No raccoon eyes. No concepcion sign. The skin of the patient's scalp looks poorly maintained. Eyes Other: Pupils are round equal, extraocular movements intact. Neck Other: No definite C-spine tenderness or pain with range of motion with the patient's exam does not seem very reliable considering his dementia. No JVD. Resp Effort & Inspection: normal respiratory effort Auscultation: clear to auscultation bilaterally Cardio Rate: regular rate Rhythm: regular rhythm Heart sounds: S1 normal heart sound present and S2 normal heart sound present GI Other: Abdomen is soft and nontender Skin Other: Skin is pale and dry Neuro Other: The patient is awake and alert. He is poorly oriented in a manner consistent with dementia. No obvious facial asymmetry. Speech is without dysarthria. He seems to have symmetrical strength in his extremities. Extrem Other: No signs of injuries to his extremities. Medications Administered Generic Name Dose Route Start Last Admin Trade Name Freq PRN Reason Stop Dose Admin Sodium Chloride 1,000 mls @ 999 mls/hr 04/03/24 17:45 04/03/24 18:01 Ns IV 04/03/24 18:45 999 mls/hr .Q1H1M SOMMER Administration Medical Decision Making Medical Decision Making [facility] Narrative: The patient is an 78-year-old male with panhypopituitarism and a known sellar or parasellar tumor. He recently was at [facility] for evaluation of this problem. He has a seizure disorder. He is on lamotrigine and topiramate. He lives at an assisted living facility. He has a history of dementia. Today he had an episode that seems very much like a seizure. He was sent to the hospital here. By the time he got here he seemed quite awake and alert although he is quite demented. He had a head CT today that does not show any acute findings although he has a significant tumor which has previously been seen and which I believe was recently evaluated at [facility]. The patient may be mildly dehydrated and he is being given 1 L of fluid. Otherwise he I believe he is back to baseline and may return home to continue his usual medications and follow up with his regular providers. Lab Data 04/03/24 14:46 04/03/24 14:46 Labs: Lab Results 04/03/24 04/03/24 04/03/24 Range/Units 14:08 14:46 16:35 WBC 9.2 (4.8-10.8) X10*3/uL RBC 3.36 L (4.60-5.80) X10*6/uL Hgb 10.1 L (14.0-18.0) g/dl Hct 29.8 L (42.0-52.0) % MCV 88.7 (80.0-98.0) fL MCH 30.1 (27.0-33.0) pg MCHC 33.9 (31.0-36.0) g/dl RDW 18.2 H (11.0-16.0) % Plt Count 256 (160-400) X10*3/uL MPV 10.3 (9.4-12.4) fL Immature Gran % (Auto) 0.5 H (0.0-0.4) % Neut % (Auto) 84.4 H (45-73) % Lymph % (Auto) 7.5 L (20-40) % [place] % (Auto) 6.2 (2-11) % Eos % (Auto) 0.9 (0-4) % Baso % (Auto) 0.5 (0-2) % Lymph # (Auto) 0.7 L (1.2-4.9) X10*3/uL [place] # (Auto) 0.6 (0.1-1.2) X10*3/uL Eos # (Auto) 0.1 (0.0-0.4) X10*3/uL Baso # (Auto) 0.1 (0.0-0.2) X10*3/uL Abs Immat Gran (auto) 0.05 H (0.00-0.03) X10*3/uL Absolute Neuts (auto) 7.8 (2.0-8.3) x10*3/uL Absolute Nucleated RBC 0.000 (0.0-0.012) X10*3/uL Nucleated RBC % (auto) 0.0 (0.0-0.2) /100WBC Sodium 140 (135-145) mmol/L Potassium 3.6 (3.3-5.1) mmol/L Chloride 112 H (96-108) mmol/L Carbon Dioxide 17 L (22-29) mmol/L Anion Gap 15 (12-20) BUN 20 H (9-16) mg/dL Creatinine 1.38 (0.5-1.4) mg/dL Estim Creat Clear Calc 41.0 Estimated GFR 50 POC Glucose 112 (60-115) mg/dL Random Glucose 84 (60-115) mg/dL Calcium 9.6 (8.4-10.2) mg/dL Magnesium 2.4 (1.6-2.6) mg/dL Total Bilirubin 0.3 (0.0-1.0) mg/dL Direct Bilirubin 0.2 (0.0-0.5) mg/dL AST 38 H (5-37) U/L ALT 22 (0-40) U/L Alkaline Phosphatase 117 (39-117) U/L Troponin I High Sens 3.7 (<3.5-35.0) ng/L C-Reactive Protein 14.55 H (< or = 0.50) mg/dL Total Protein 6.1 L (6.5-8.0) g/dL Albumin 3.3 L (3.5-5.0) g/dL Urine Color Urine Appearance Urine pH (5.0-9.0) Ur Specific [place] (1.005-1.025) Urine Protein (Neg-Trace) mg/dL Urine Glucose (UA) (Negative) mg/dL Urine Ketones (Negative) mg/dL Urine Blood (Negative) Urine Nitrite (Negative) Ur Leukocyte Esterase (Negative) Urine RBC (0-2) /HPF Urine WBC (0-5) /HPF Ur Squamous Epith Cells (0-2) /HPF Urine Bacteria (None Seen) Hyaline Casts (0-2) /LPF Urine Opiates Screen Not Detected (Not Detect) Ur Buprenorphine Scrn Not Detected (Not Detect) ng/mL Ur Oxycodone Screen Not Detected (Not Detect) ng/mL Urine Methadone Screen Not Detected (Not Detect) ng/mL Urine Fentanyl Screen Not Detected (Not Detect) Ur Barbiturates Screen Not Detected (Not Detect) Ur Phencyclidine Scrn Not Detected (Not Detect) Ur Amphetamines Screen Not Detected (Not Detect) U Benzodiazepines Scrn Not Detected (Not Detect) Urine Cocaine Screen Not Detected (Not Detect) U Marijuana (THC) Screen Not Detected (Not Detect) Ethyl Alcohol < 10 mg/dL Influenza Type A (PCR) NEGATIVE (Negative) Influenza Type B (PCR) NEGATIVE (Negative) RSV RNA Qual (PCR) NEGATIVE (Negative) SARS-CoV-2 RNA (RT-PCR) NEGATIVE (Negative) 04/03/24 Range/Units 17:00 WBC (4.8-10.8) X10*3/uL RBC (4.60-5.80) X10*6/uL Hgb (14.0-18.0) g/dl Hct (42.0-52.0) % MCV (80.0-98.0) fL MCH (27.0-33.0) pg MCHC (31.0-36.0) g/dl RDW (11.0-16.0) % Plt Count (160-400) X10*3/uL MPV (9.4-12.4) fL Immature Gran % (Auto) (0.0-0.4) % Neut % (Auto) (45-73) % Lymph % (Auto) (20-40) % [place] % (Auto) (2-11) % Eos % (Auto) (0-4) % Baso % (Auto) (0-2) % Lymph # (Auto) (1.2-4.9) X10*3/uL [place] # (Auto) (0.1-1.2) X10*3/uL Eos # (Auto) (0.0-0.4) X10*3/uL Baso # (Auto) (0.0-0.2) X10*3/uL Abs Immat Gran (auto) (0.00-0.03) X10*3/uL Absolute Neuts (auto) (2.0-8.3) x10*3/uL Absolute Nucleated RBC (0.0-0.012) X10*3/uL Nucleated RBC % (auto) (0.0-0.2) /100WBC Sodium (135-145) mmol/L Potassium (3.3-5.1) mmol/L Chloride (96-108) mmol/L Carbon Dioxide (22-29) mmol/L Anion Gap (12-20) BUN (9-16) mg/dL Creatinine (0.5-1.4) mg/dL Estim Creat Clear Calc Estimated GFR POC Glucose (60-115) mg/dL Random Glucose (60-115) mg/dL Calcium (8.4-10.2) mg/dL Magnesium (1.6-2.6) mg/dL Total Bilirubin (0.0-1.0) mg/dL Direct Bilirubin (0.0-0.5) mg/dL AST (5-37) U/L ALT (0-40) U/L Alkaline Phosphatase (39-117) U/L Troponin I High Sens (<3.5-35.0) ng/L C-Reactive Protein (< or = 0.50) mg/dL Total Protein (6.5-8.0) g/dL Albumin (3.5-5.0) g/dL Urine Color Yellow Urine Appearance Clear Urine pH 6.0 (5.0-9.0) Ur Specific [place] 1.010 (1.005-1.025) Urine Protein 30 (1+) H (Neg-Trace) mg/dL Urine Glucose (UA) Negative (Negative) mg/dL Urine Ketones Trace (Negative) mg/dL Urine Blood Small (1+) H (Negative) Urine Nitrite Negative (Negative) Ur Leukocyte Esterase Negative (Negative) Urine RBC 3-5 H (0-2) /HPF Urine WBC 0-5 (0-5) /HPF Ur Squamous Epith Cells 6-10 (0-2) /HPF Urine Bacteria None Seen (None Seen) Hyaline Casts 3-5 (0-2) /LPF Urine Opiates Screen (Not Detect) Ur Buprenorphine Scrn (Not Detect) ng/mL Ur Oxycodone Screen (Not Detect) ng/mL Urine Methadone Screen (Not Detect) ng/mL Urine Fentanyl Screen (Not Detect) Ur Barbiturates Screen (Not Detect) Ur Phencyclidine Scrn (Not Detect) Ur Amphetamines Screen (Not Detect) U Benzodiazepines Scrn (Not Detect) Urine Cocaine Screen (Not Detect) U Marijuana (THC) Screen (Not Detect) Ethyl Alcohol mg/dL Influenza Type A (PCR) (Negative) Influenza Type B (PCR) (Negative) RSV RNA Qual (PCR) (Negative) SARS-CoV-2 RNA (RT-PCR) (Negative) Independent Interpretation I performed an independent interpretation of an: EKG Interpretation: EKG at 1448 shows sinus rhythm with first-degree AV block at 63 beats per minute. Discharge Plan Discharge Clinical Impression: Seizure Patient Disposition: er [facility] Transfer Details: [place] assisted living Additional Instructions: His testing in the emergency room today was unremarkable. I suspect he had a seizure. Please continue his regular medications. Please have him follow up with his regular providers. Return to the emergency room if worse. Prescriptions: No Action prednisone 1 mg tablet 1 mg PO DAILY doxycycline monohydrate 100 mg capsule 100 mg PO BID calcipotriene 0.005 % cream 1 appl topical QAM furosemide 20 mg tablet 20 mg PO QAM ergocalciferol (vitamin D2) 1,250 mcg (50,000 unit) capsule 1,250 mcg PO QWEEK testosterone cypionate 200 mg/mL oil 20 mg IM QWEEK topiramate 100 mg tablet 100 mg PO Rx Instructions: 1.5 tablets rosuvastatin 20 mg tablet 20 mg PO DAILY lamotrigine 100 mg tablet 125 mg PO BID latanoprost 0.005 % drops 1 drp ophthalmic (eye) BEDTIME Rx Instructions: both eyes tacrolimus 0.1 % ointment 0.1 appl topical BID levothyroxine 112 mcg tablet 112 mcg PO DAILY Referrals: Pilar Edmondson MD [Physician] - (seizure, dementia) Print Language: Hungarian
[2024-04-03 14:12] LABS: Glucose, Whole Blood 112 mg/dL (60-115)
--- NOTE | 2024-04-03 14:17 | ECG_ITS ---
Test Reason : WEAKNESS Blood Pressure : / mmHG Vent. Rate : 063 BPM Atrial Rate : 063 BPM P-R Int : 260 ms QRS Dur : 136 ms QT Int : 472 ms P-R-T Axes : 061 060 069 degrees QTc Int : 483 ms Poor data quality Sinus rhythm with 1st degree A-V block Possible Lateral infarct , age undetermined Abnormal ECG When compared with ECG of 31-MAR-2024 18:14, Borderline criteria for Lateral infarct are now Present Referred By: Caleb Rico Electronically Signed By:RIP BRADFORD MD
[2024-04-03 14:52] LABS: MANUAL DIFF FLAG NO
[2024-04-03 14:54] LABS: Basophils Absolute Auto 0.1 X10*3/uL (0.0-0.2); Basophils Percent Auto 0.5 % (0-2); Eosinophils Absolute Auto 0.1 X10*3/uL (0.0-0.4); Eosinophils Percent Auto 0.9 % (0-4); Hematocrit 29.8 % (42.0-52.0); Hemoglobin 10.1 g/dl (14.0-18.0); Imm Gran Abs Auto 0.05 X10*3/uL (0.00-0.03); Imm Gran Pct Auto 0.5 % (0.0-0.4); Lymphocytes Absolute Auto 0.7 X10*3/uL (1.2-4.9); Lymphocytes Percent Auto 7.5 % (20-40); Mean Corpuscular HGB Conc 33.9 g/dl (31.0-36.0); Mean Corpuscular Hemoglobin 30.1 pg (27.0-33.0); Mean Corpuscular Volume 88.7 fL (80.0-98.0); Mean Platelet Volume 10.3 fL (9.4-12.4); Monocytes Absolute Auto 0.6 X10*3/uL (0.1-1.2); Monocytes Percent Auto 6.2 % (2-11); Neutrophils Absolute Auto 7.8 x10*3/uL (2.0-8.3); Neutrophils Percent Auto 84.4 % (45-73); Platelet Count 256 X10*3/uL (160-400); Red Blood Count 3.36 X10*6/uL (4.60-5.80); Red Cell Distribution Width 18.2 % (11.0-16.0); White Blood Count 9.2 X10*3/uL (4.8-10.8)
[2024-04-03 15:12] LABS: Alanine Aminotransferase 22 U/L (0-40); Albumin Level 3.3 g/dL (3.5-5.0); Alkaline Phosphatase 117 U/L (39-117); Anion Gap 15 (12-20); Aspartate Amino Transferase 38 U/L (5-37); Bilirubin Direct 0.2 mg/dL (0.0-0.5); Bilirubin Total 0.3 mg/dL (0.0-1.0); Blood Urea Nitrogen 20 mg/dL (9-16); C Reactive Protein 14.55 mg/dL (< or = 0.50); Calcium 9.6 mg/dL (8.4-10.2); Carbon Dioxide 17 mmol/L (22-29); Chloride 112 mmol/L (96-108); Estimated Glomerular Filt Rate 50; Ethanol < 10 mg/dL; Glucose Random 84 mg/dL (60-115); Magnesium 2.4 mg/dL (1.6-2.6); Potassium 3.6 mmol/L (3.3-5.1); Sodium 140 mmol/L (135-145); Total Protein 6.1 g/dL (6.5-8.0)
[2024-04-03 15:19] LABS: Troponin-I High Sensitivity 3.7 ng/L (<3.5-35.0)
[2024-04-03 15:35] LABS: Influenza A PCR NEGATIVE (Negative); Influenza B PCR NEGATIVE (Negative); Resp Syncy Virus RNA Qual PCR NEGATIVE (Negative); SARS COV2 PCR INHOUSE NEGATIVE (Negative)
[2024-04-03 16:31] VITALS: BP 115/61; PULSE 57; RESP 16; TEMP 37.1; O2SAT 99
[2024-04-03 17:02] LABS: Amphetamine Screen Urine Not Detected (Not Detect); Barbiturates, Urine Not Detected (Not Detect); Benzodiazepines Screen Urine Not Detected (Not Detect); Buprenorphine Scr Not Detected (Not Detect); Cannabinoid Screen Urine Not Detected (Not Detect); Cocaine Screen Urine Not Detected (Not Detect); Fentanyl, urine Not Detected (Not Detect); Methadone Screen, Urine Not Detected (Not Detect); Opiate Screen Urine Not Detected (Not Detect); Oxycodone Screen Urine Not Detected (Not Detect); Phencyclidine Screen Urine Not Detected (Not Detect)
[2024-04-03 17:10] LABS: Appearance Urine Clear; Color Urine Yellow; Glucose Urine UA Negative (Negative); Leukocyte Esterase Urine Negative (Negative); Nitrite Urine Negative (Negative); UMIC TRIGGER UACC YES; Urine Blood Small (1+) (Negative); Urine Ketones Trace mg/dL (Negative); Urine Protein 30 (1+) mg/dL (Neg-Trace)
[2024-04-03 17:36] LABS: Bacteria Urine None Seen (None Seen); WBC Urine 0-5 /HPF (0-5)
[2024-04-03] MEDS: 0.9 % Sodium Chloride 1,000 ML 999 ML IV (18:01)
[2024-04-03 20:08] VITALS: BP 95/54; PULSE 53; RESP 16; TEMP 36.8; O2SAT 100
[2024-04-03 20:22] VITALS: BP 100/56; PULSE 59; RESP 12; TEMP 37; O2SAT 100
--- NOTE | 2024-04-03 20:23 | PC.NURSE ---
Called Luke and provided report as pt is returning back to the assisted living facility via EMS.
[2024-04-06 17:13] LABS: Lamotrigine Lamictal 19.7 mcg/mL (2.5-15.0)
[2024-04-07 00:38] LABS: Topiramate 19.6 mcg/mL (see note)
== END 2024-04-03 20:24 | disposition skilled nursing facility (03) ==
PROVIDERS: Emergency Provider Emergency Medicine
DX: R56.9 Unspecified convulsions (principal); E78.5 Hyperlipidemia, unspecified; E23.0 Hypopituitarism; R22.0 Localized swelling, mass and lump, head; F03.90 Unspecified dementia, unspecified severity, without behavioral disturbance, psychotic disturbance, mood disturbance, and anxiety; Z79.02 Long term (current) use of antithrombotics/antiplatelets; Z79.899 Other long term (current) drug therapy; Z03.818 Encounter for observation for suspected exposure to other biological agents ruled out
CPT/HCPCS: 0241U; 36415; 70450; 72125; 80048; 80076; 80175; 80201; 80307; 81001; 82947; 83735; 84484; 85025; 86140; 93005; 96360; 99284; 99285

== ENCOUNTER → 2024-04-03 14:17 | Outpatient (BNV) | payer MEDICARE, SELFPAY | PROVIDERS: Emergency Provider Emergency Medicine; Visit Provider Internal Medicine Cardiovascular Disease | DX: I44.0 Atrioventricular block, first degree (principal) | CPT/HCPCS: 93010 ==

== ENCOUNTER 2024-04-05 19:47 | Inpatient (IN) | payer MEDICARE, SELFPAY ==
--- NOTE | ~2024-04-05 | XR_ITS ---
EXAMINATION: XR CHEST CLINICAL INFORMATION: Altered mental status and hypothermia. COMPARISON: 04/01/2024 TECHNIQUE: Frontal view of the chest was obtained. FINDINGS: Lungs are well expanded and clear. No consolidation or pleural effusion. Cardiac silhouette is normal in size. The hilar contours are normal. Again noted is a tortuous atherosclerotic aorta. Cardiac loop recorder projects over the left chest. No acute osseous abnormality. XR/XR chest 1V IMPRESSION: No acute pulmonary disease.
--- NOTE | ~2024-04-05 | CT_ITS ---
EXAMINATION: CT HEAD WITHOUT CONTRAST CLINICAL INFORMATION: Altered mental status. COMPARISON: Multiple prior studies, most recent CT dated 04/03/2024. TECHNIQUE: Contiguous axial imaging was performed from the skullbase to vertex without intravenous administration of contrast. This CT examination was performed using dose optimization techniques as appropriate, variously including the following: *Automated exposure control *Adjustment of mA and/or kV according to patient size (this includes techniques or standardized protocols for targeted exams where dose is matched to indication/reason for exam; i.e. extremities or head) *Use of iterative reconstruction technique DLP: 583 mGy-cm. FINDINGS: As seen on prior imaging, there is exuberant sclerotic change in the sphenoid sinus cutler and basisphenoid portion of the clivus with a chronic eroded defect communicating between the posterior sphenoid sinus cavities and the pituitary fossa. Soft tissue abnormality is present within the sphenoid sinuses demonstrating erosion of the midline intra-sphenoid sinus septation. Soft tissue protrudes through the sphenoethmoid recesses bilaterally with soft tissue extending inferiorly into the posterior left nasal passage. Contiguous soft tissue fills and expands the pituitary fossa, as seen on prior imaging with remodeling and chronic pressure-erosive changes of the cutler of the sella turcica and dorsum sella. Lobulated soft tissue abnormality protrudes superiorly into the midline suprasellar cistern along the plane of the pituitary stalk. Further superiorly, there is a contiguous heterogeneous soft tissue lesion distorting the anterior floor of the third ventricle, measuring approximately 2 x 1.7 x 1.6 cm in size. Of note, the basilar artery lies directly posterior to the suprasellar soft tissue lesion. There is no evidence of acute intracranial hemorrhage or territorial infarction. No midline shift is seen. Kaye to white matter differentiation is well preserved. No extra-axial fluid collections are identified. Chronic mineralization again visible in the left temporal operculum. Generalized brain parenchymal volume loss is stable with commensurate ex vacuo prominence of the ventricles. Mild chronic white matter microangiopathy also again visible. The mastoid air cells are well aerated. CT/CT head/brain wo IV con IMPRESSION: No significant interval changes compared to recent prior imaging. 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 Chronic mineralization in the left temporal operculum. Moderate diffuse brain parenchymal volume loss and mild chronic white matter microangiopathy.
[2024-04-05 19:56] VITALS: BP 122/77; BP 133/70; PULSE 50; PULSE 63; RESP 17; TEMP 36.6; O2SAT 100; O2SAT 97; BMI 15.6
--- NOTE | 2024-04-05 20:01 | ED.NEUROSD ---
HPI - Neuro Symptoms/Deficit General Chief Complaint: Stroke Stated Complaint: stroke alert,lkwt 6pm Time Seen by Provider: 04/05/24 19:51 Source: EMS Mode of arrival: EMS Limitations: no limitations History of Present Illness HPI Narrative: Patient's history of seizure disorder for last 25 years on Lamictal and Topamax lives in assisted living place as staff noticed that his not himself and not talking much last known well time was around 18:00 EMS arrived patient was not talking after arrival in the ER patient back to his baseline patient has been here 2 times 03/30 and 04/[address] head and C-spine neck patient does get absence seizures no tonic-clonic seizure Related Data Home Medications ?Medication ?Instructions ?Recorded ?Confirmed calcipotriene 0.005 % topical cream 1 appl topical QAM 03/01/24 03/01/24 doxycycline monohydrate 100 mg 100 mg PO BID 03/01/24 03/01/24 capsule ergocalciferol (vitamin D2) 1,250 1,250 mcg PO QWEEK 03/01/24 03/01/24 mcg (50,000 unit) capsule furosemide 20 mg tablet 20 mg PO QAM 03/01/24 03/01/24 lamotrigine 100 mg tablet 125 mg PO BID 03/01/24 03/01/24 latanoprost 0.005 % eye drops 1 drp ophthalmic (eye) BEDTIME 03/01/24 03/01/24 levothyroxine 112 mcg tablet 112 mcg PO DAILY 03/01/24 03/01/24 prednisone 1 mg tablet 1 mg PO DAILY 03/01/24 03/01/24 rosuvastatin 20 mg tablet 20 mg PO DAILY 03/01/24 03/01/24 tacrolimus 0.1 % topical ointment 0.1 appl topical BID 03/01/24 03/01/24 testosterone cypionate 200 mg/mL 20 mg IM QWEEK 03/01/24 03/01/24 intramuscular oil topiramate 100 mg tablet 100 mg PO 03/01/24 Allergies Allergy/AdvReac Type Severity Reaction Status Date / Time No Known Allergies Allergy Verified 04/05/24 19:58 [No Known Allergies*] Review of Systems Review of Systems: Yes Unobtainable due to mental status PMFSH Past Medical History Medical History Hypothyroidism Hyperlipidemia Seizure Social History Social History Unable to assess alcohol history related to: Unknown Alcohol intake: current Alcohol intake frequency: a few times a month Alcohol type: wine Advance Directives: Yes Advance Directives on File: Yes Advance Directives Date on File: 03/02/24 Do you have a plan to hurt others: No Plan Physical Exam Vital Signs: Vital Signs: Last Vital Signs Temp 97.4 F 04/05/24 22:41 Pulse 55 04/06/24 00:54 Resp 16 04/06/24 00:54 BP 111/63 04/06/24 00:54 Pulse Ox 96 04/06/24 00:54 O2 Del Method Room Air 04/06/24 00:54 BMI result Body Mass Index 15.6 Appearance: Alert. Oriented X1-2. No acute distress. Eyes: PERRLA, No Nystagmus ENT: Pharynx normal. Oral Mucosa moist no tongue Neck: Normal inspection. Neck supple. CVS: Normal heart rate and rhythm. Pulses normal. Respiratory: No respiratory distress. Equal air entry bilateral, no wheezing/rales/rhonchi Abdomen: Soft and nontender. Bowel sounds are present, no mass palpable, no CVA tenderness Skin: Skin warm and dry. Normal skin color. Normal skin turgor. Extremities: No lower extremity edema. No calf tenderness Neuro: Oriented X 3. No motor deficit. No sensory deficit.No cerebellar signs , cranial nerves II-XII intact Medications Administered Discontinued Medications Generic Name Dose Route Start Last Admin Trade Name Vincentq PRN Reason Stop Dose Admin Lorazepam 1 mg 04/06/24 00:28 04/06/24 00:31 Lorazepam 2 Mg/Ml Vial IVPUSH 04/06/24 00:29 1 mg ONCE ONE Administration Medical Decision Making Medical Decision Making MDM Narrative: Patient has frequent fall unsteady on his feet with history of absence seizures comes from home will plan to get the case management involved for long-term placement for high-risk of falls and unable to manage himself patient had CT was negative for acute stroke patient also has elevated creatinine to 1.85 from baseline of 1.3 will give IV hydration Differential Diagnosis Differential Diagnoses: The differential diagnosis associated with the presentation includes Seizure/stroke Admission/Observation Consideration of admission/observation: Escalation of care including admission/observation considered Lab Data MDM Lab Attestation statement: I reviewed the patient's lab results. 04/05/24 20:01 04/05/24 20:01 Labs: Lab Results 04/05/24 04/06/24 Range/Units 20:01 00:35 WBC 8.4 (4.8-10.8) X10*3/uL RBC 3.49 L (4.60-5.80) X10*6/uL Hgb 10.5 L (14.0-18.0) g/dl Hct 31.2 L (42.0-52.0) % MCV 89.4 (80.0-98.0) fL MCH 30.1 (27.0-33.0) pg MCHC 33.7 (31.0-36.0) g/dl RDW 18.7 H (11.0-16.0) % Plt Count 263 (160-400) X10*3/uL MPV 10.6 (9.4-12.4) fL Immature Gran % (Auto) 0.2 (0.0-0.4) % Neut % (Auto) 81.7 H (45-73) % Lymph % (Auto) 9.9 L (20-40) % [place] % (Auto) 7.2 (2-11) % Eos % (Auto) 0.6 (0-4) % Baso % (Auto) 0.4 (0-2) % Lymph # (Auto) 0.8 L (1.2-4.9) X10*3/uL [place] # (Auto) 0.6 (0.1-1.2) X10*3/uL Eos # (Auto) 0.1 (0.0-0.4) X10*3/uL Baso # (Auto) 0.0 (0.0-0.2) X10*3/uL Abs Immat Gran (auto) 0.02 (0.00-0.03) X10*3/uL Absolute Neuts (auto) 6.9 (2.0-8.3) x10*3/uL Absolute Nucleated RBC 0.000 (0.0-0.012) X10*3/uL Nucleated RBC % (auto) 0.0 (0.0-0.2) /100WBC PT 11.2 (11.1-13.3) SEC INR 0.9 (0.9-1.1) APTT 38.2 H (26.0-36.8) SEC Sodium 151 H (135-145) mmol/L Potassium 3.6 (3.3-5.1) mmol/L Chloride 121 H (96-108) mmol/L Carbon Dioxide 21 L (22-29) mmol/L Anion Gap 13 (12-20) BUN 15 (9-16) mg/dL Creatinine 1.85 H (0.5-1.4) mg/dL Estim Creat Clear Calc 22.8 Estimated GFR 35 POC Glucose 64 (60-115) mg/dL Random Glucose 92 (60-115) mg/dL Calcium 9.8 (8.4-10.2) mg/dL Total Bilirubin 0.3 (0.0-1.0) mg/dL AST 60 H (5-37) U/L ALT 42 H (0-40) U/L Alkaline Phosphatase 131 H (39-117) U/L Total Protein 6.0 L (6.5-8.0) g/dL Albumin 3.3 L (3.5-5.0) g/dL Independent Interpretation I performed an independent interpretation of an: EKG and CT Scan Interpretation: Sinus bradycardia with ventricular rate of 55 with first-degree block no acute ST-T changes no acute ischemia Radiology Impression Discussion of test interpretation with radiology: I have reviewed the radiologist's reading. Radiologist Impression: [place] [id number] CT Scan Report Signed Patient: Mitch Pete MR#: [id number] : 1945 Acct:[id number] Age/Sex: 78 / M ADM Date: 04/05/24 Loc: HO.ED Attending Dr: Ordering Physician: Zia Hernandez MD Date of Service: 04/05/24 Procedure(s): CT head/brain wo IV con Accession Number(s): [id number] cc: Zia Hernandez MD~ EXAMINATION: CT HEAD WITHOUT CONTRAST CLINICAL INFORMATION: Altered mental status. COMPARISON: Multiple prior studies, most recent CT dated 04/03/2024. TECHNIQUE: Contiguous axial imaging was performed from the skullbase to vertex without intravenous administration of contrast. This CT examination was performed using dose optimization techniques as appropriate, variously including the following: *Automated exposure control *Adjustment of mA and/or kV according to patient size (this includes techniques or standardized protocols for targeted exams where dose is matched to indication/reason for exam; i.e. extremities or head) *Use of iterative reconstruction technique DLP: 583 mGy-cm. FINDINGS: As seen on prior imaging, there is exuberant sclerotic change in the sphenoid sinus cutler and basisphenoid portion of the clivus with a chronic eroded defect communicating between the posterior sphenoid sinus cavities and the pituitary fossa. Soft tissue abnormality is present within the sphenoid sinuses demonstrating erosion of the midline intra-sphenoid sinus septation. Soft tissue protrudes through the sphenoethmoid recesses bilaterally with soft tissue extending inferiorly into the posterior left nasal passage. Contiguous soft tissue fills and expands the pituitary fossa, as seen on prior imaging with remodeling and chronic pressure-erosive changes of the cutler of the sella turcica and dorsum sella. Lobulated soft tissue abnormality protrudes superiorly into the midline suprasellar cistern along the plane of the pituitary stalk. Further superiorly, there is a contiguous heterogeneous soft tissue lesion distorting the anterior floor of the third ventricle, measuring approximately 2 x 1.7 x 1.6 cm in size. Of note, the basilar artery lies directly posterior to the suprasellar soft tissue lesion. There is no evidence of acute intracranial hemorrhage or territorial infarction. No midline shift is seen. Kaye to white matter differentiation is well preserved. No extra-axial fluid collections are identified. Chronic mineralization again visible in the left temporal operculum. Generalized brain parenchymal volume loss is stable with commensurate ex vacuo prominence of the ventricles. Mild chronic white matter microangiopathy also again visible. The mastoid air cells are well aerated. CT/CT head/brain wo IV con IMPRESSION: No significant interval changes compared to recent prior imaging. 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 Chronic mineralization in the left temporal operculum. Moderate diffuse brain parenchymal volume loss and mild chronic white matter microangiopathy. External Record Review External record reviewed: Inpatient record, Outpatient record and Outside ED record Discharge Plan Discharge Clinical Impression: Epilepsy, Acute renal failure, Weakness Patient Disposition: Still a Patient Prescriptions: No Action prednisone 1 mg tablet 1 mg PO DAILY doxycycline monohydrate 100 mg capsule 100 mg PO BID calcipotriene 0.005 % cream 1 appl topical QAM furosemide 20 mg tablet 20 mg PO QAM ergocalciferol (vitamin D2) 1,250 mcg (50,000 unit) capsule 1,250 mcg PO QWEEK testosterone cypionate 200 mg/mL oil 20 mg IM QWEEK topiramate 100 mg tablet 100 mg PO Rx Instructions: 1.5 tablets rosuvastatin 20 mg tablet 20 mg PO DAILY lamotrigine 100 mg tablet 125 mg PO BID latanoprost 0.005 % drops 1 drp ophthalmic (eye) BEDTIME Rx Instructions: both eyes tacrolimus 0.1 % ointment 0.1 appl topical BID levothyroxine 112 mcg tablet 112 mcg PO DAILY Print Language: Trinidadian
[2024-04-05 20:13] LABS: MANUAL DIFF FLAG NO
[2024-04-05 20:16] LABS: Basophils Percent Auto 0.4 % (0-2); Eosinophils Absolute Auto 0.1 X10*3/uL (0.0-0.4); Eosinophils Percent Auto 0.6 % (0-4); Hematocrit 31.2 % (42.0-52.0); Hemoglobin 10.5 g/dl (14.0-18.0); Imm Gran Abs Auto 0.02 X10*3/uL (0.00-0.03); Imm Gran Pct Auto 0.2 % (0.0-0.4); Lymphocytes Absolute Auto 0.8 X10*3/uL (1.2-4.9); Lymphocytes Percent Auto 9.9 % (20-40); Mean Corpuscular HGB Conc 33.7 g/dl (31.0-36.0); Mean Corpuscular Hemoglobin 30.1 pg (27.0-33.0); Mean Corpuscular Volume 89.4 fL (80.0-98.0); Mean Platelet Volume 10.6 fL (9.4-12.4); Monocytes Absolute Auto 0.6 X10*3/uL (0.1-1.2); Monocytes Percent Auto 7.2 % (2-11); Neutrophils Absolute Auto 6.9 x10*3/uL (2.0-8.3); Neutrophils Percent Auto 81.7 % (45-73); Platelet Count 263 X10*3/uL (160-400); Red Blood Count 3.49 X10*6/uL (4.60-5.80); Red Cell Distribution Width 18.7 % (11.0-16.0); White Blood Count 8.4 X10*3/uL (4.8-10.8)
--- NOTE | 2024-04-05 20:28 | ECG_ITS ---
Test Reason : AMS Blood Pressure : / mmHG Vent. Rate : 055 BPM Atrial Rate : 055 BPM P-R Int : 276 ms QRS Dur : 098 ms QT Int : 468 ms P-R-T Axes : 095 -19 054 degrees QTc Int : 447 ms Sinus bradycardia with 1st degree A-V block Otherwise normal ECG When compared with ECG of 03-APR-2024 14:48, QRS duration has decreased Referred By: Zia Hernandez Electronically Signed By:RIP BRADFORD MD
[2024-04-05 20:29] LABS: INTERNATIONAL NORM RATIO 0.9 (0.9-1.1); Prothrombin Time 11.2 SEC (11.1-13.3)
[2024-04-05 20:32] LABS: Partial Thromboplastin Time 38.2 SEC (26.0-36.8)
[2024-04-05 20:35] LABS: Alanine Aminotransferase 42 U/L (0-40); Albumin Level 3.3 g/dL (3.5-5.0); Alkaline Phosphatase 131 U/L (39-117); Anion Gap 13 (12-20); Aspartate Amino Transferase 60 U/L (5-37); Bilirubin Total 0.3 mg/dL (0.0-1.0); Blood Urea Nitrogen 15 mg/dL (9-16); Calcium 9.8 mg/dL (8.4-10.2); Carbon Dioxide 21 mmol/L (22-29); Chloride 121 mmol/L (96-108); Creatinine Clr Calc Pharmacy 22.8; Estimated Glomerular Filt Rate 35; Glucose Random 92 mg/dL (60-115); Potassium 3.6 mmol/L (3.3-5.1); Sodium 151 mmol/L (135-145)
--- NOTE | 2024-04-05 21:44 | PC.NURSE ---
Spoke with pts brother Jimbo Calhoun. Can be reached at home phone [phone] or cell [phone]. Would like pt to be PT/CM.
--- NOTE | 2024-04-05 21:56 | PC.NURSE ---
Provider Keyshawn placed EKG order at 2027, EKG order not crossing over, systems technician doing now.
[2024-04-05 22:41] VITALS: BP 129/75; PULSE 57; RESP 12; TEMP 36.3; O2SAT 100
[2024-04-06] VITALS (22 sets, daily range): BP systolic 74–128; BP diastolic 36–72; PULSE 47–105; RESP 10–24; TEMP 31.4–36.7; O2SAT 96–100; BMI 16.3
[2024-04-06] MEDS: LORazepam 2 MG/ML VIAL 1 MG IVPUSH (00:31)
--- NOTE | 2024-04-06 00:31 | PC.NURSE ---
Pt pulling at account service representative wires and attempting to scoot out of bed. Medicated per JAN with 1mg Ativan IVP.
--- NOTE | 2024-04-06 00:40 | PC.NURSE ---
[employer]asure camera placed at this time for pt safety.
[2024-04-06 00:41] LABS: Glucose, Whole Blood 64 mg/dL (60-115)
--- NOTE | 2024-04-06 00:56 | PC.NURSE ---
Pt appears more calm at this time. Respirations even and unlabored. VSS.
[2024-04-06] MEDS: 0.9 % Sodium Chloride 1,000 ML 999 ML IV ×3 (01:33→12:03)
--- NOTE | 2024-04-06 07:28 | PC.NURSE ---
brother Jimbo Pete: home: [phone]
--- NOTE | 2024-04-06 09:36 | PC.NURSE ---
pt cold to the touch, rectal temp reading LO placed rectal probe, rectal temp now reading 88.5. Armando HYLTON made aware, Edna King instituted. plan for cultures and lactic to be drawn
[2024-04-06 09:44] LABS: Glucose, Whole Blood 65 mg/dL (60-115)
[2024-04-06 10:11] LABS: Appearance Urine Clear; Color Urine Yellow; Glucose Urine UA Negative (Negative); Leukocyte Esterase Urine Negative (Negative); Nitrite Urine Negative (Negative); PH 7.5 (5.0-9.0); Specific Gravity - Urine <= 1.005 (1.005-1.025); UMIC TRIGGER UACC YES; Urine Blood Small (1+) (Negative); Urine Ketones Negative (Negative); Urine Protein Trace mg/dL (Neg-Trace)
[2024-04-06 10:18] LABS: Bacteria Urine None Seen (None Seen); Hyaline Casts Urine 0-2 /LPF (0-2); RBC Urine 0-2 /HPF (0-2); Squamous Epithelial Cell Urine 0-2 /HPF (0-2); WBC Urine 0-5 /HPF (0-5)
--- NOTE | 2024-04-06 10:20 | MHC.CM.ED ---
Received case management consult overnight. Received notification from Lilliana TEIXEIRA that patient has low core temp. Case management consult on hold at this time.
[2024-04-06 10:34] LABS: MANUAL DIFF FLAG NO
[2024-04-06 10:35] LABS: Basophils Percent Auto 0.7 % (0-2); Eosinophils Absolute Auto 0.2 X10*3/uL (0.0-0.4); Eosinophils Percent Auto 4.3 % (0-4); Hematocrit 31.9 % (42.0-52.0); Hemoglobin 10.7 g/dl (14.0-18.0); Imm Gran Abs Auto 0.01 X10*3/uL (0.00-0.03); Imm Gran Pct Auto 0.2 % (0.0-0.4); Lymphocytes Absolute Auto 1.2 X10*3/uL (1.2-4.9); Lymphocytes Percent Auto 22.1 % (20-40); Mean Corpuscular HGB Conc 33.5 g/dl (31.0-36.0); Mean Corpuscular Hemoglobin 30.1 pg (27.0-33.0); Mean Corpuscular Volume 89.9 fL (80.0-98.0); Mean Platelet Volume 10.6 fL (9.4-12.4); Monocytes Absolute Auto 0.4 X10*3/uL (0.1-1.2); Monocytes Percent Auto 7.5 % (2-11); Neutrophils Absolute Auto 3.5 x10*3/uL (2.0-8.3); Neutrophils Percent Auto 65.2 % (45-73); Platelet Count 234 X10*3/uL (160-400); Red Blood Count 3.55 X10*6/uL (4.60-5.80); White Blood Count 5.3 X10*3/uL (4.8-10.8)
[2024-04-06] MEDS: Hydrocortisone Sod Succ/PF 100 MG VIAL IVPUSH (10:53)
[2024-04-06 10:56] LABS: Lactic Acid 0.7 mmol/L (0.5-2.0)
[2024-04-06 11:02] LABS: Anion Gap 9 (12-20); Blood Urea Nitrogen 12 mg/dL (9-16); Calcium 9.7 mg/dL (8.4-10.2); Carbon Dioxide 21 mmol/L (22-29); Chloride 129 mmol/L (96-108); Creatinine Clr Calc Pharmacy 27.8; Estimated Glomerular Filt Rate 44; Glucose Random 68 mg/dL (60-115); Potassium 3.4 mmol/L (3.3-5.1); Sodium 156 mmol/L (135-145)
[2024-04-06 11:21] LABS: TSH reflex Free T4 < 0.01 uIU/mL (0.32-4.0)
[2024-04-06 11:22] LABS: Influenza A PCR NEGATIVE (Negative); Influenza B PCR NEGATIVE (Negative); Resp Syncy Virus RNA Qual PCR NEGATIVE (Negative); SARS COV2 PCR INHOUSE NEGATIVE (Negative)
--- NOTE | 2024-04-06 11:51 | PC.NURSE ---
FLUIDS INFUSING ON WARMER AT THIS TIME
[2024-04-06] MEDS: Dextrose 10 % 250 ML 750 ML IV (12:30)
[2024-04-06 13:24] LABS: Glucose, Whole Blood 156 mg/dL (60-115)
[2024-04-06 13:25] LABS: Glucose, Whole Blood 54 mg/dL (60-115)
[2024-04-06 13:41] LABS: Free T4 (Free Thyroxine) 1.19 ng/dL (0.71-1.85)
[2024-04-06 14:11] LABS: Phosphorus 1.2 mg/dL (2.7-4.5)
--- NOTE | 2024-04-06 14:28 | PC.NURSE ---
this nurse assisting sanjiv who was the primary nurse to give lovenox, upon going to give the lovenox this nurse noted the pt had bloody secretions around mouth and gums, icu director in room to transfer pt to ICU and noted the same thing, will return it but not chart against it just in case icu provider wishes to still administer it.
--- NOTE | 2024-04-06 14:41 | P.HPCC_ITS ---
History of Present Illness Date of Service: 04/06/24 Attending physician on admission: Xavi Armas Chief Complaint: Unresponsive History is limited as patient is unresponsive and no family members bedside, family members not answering the phone either 78-year-old male who lives by himself with past medical history of significant dementia, panhypopituitarism, SIADH, seizure disorder, paroxysmal AFib with 3rd visit to the ER this month due to fall and altered sensorium. He presented to the ED yesterday with a fall and altered mental status worrisome for seizure disorder. This morning patient became extremely drowsy, unresponsive, hypothermic and hypotensive so MICU was consulted for admission. His body temperature is we are down to 88 F, he was bradycardic to 40s and 50s, blood pressures in 80s systolics. Labs are significant for acute kidney injury with a creatinine of 1.52, hypernatremia with sodium of 156. Review of Systems 2 Review of Systems: Unable to obtain as patient is unresponsive [facility] Past Medical History Medical History Hypothyroidism Hyperlipidemia Seizure Social History Social History Unable to assess alcohol history related to: Unable to respond Alcohol intake: current Alcohol intake frequency: a few times a month Alcohol type: wine Patient Tobacco Use Status: Tobacco use Unknown Advance Directives: Yes Advance Directives on File: Yes Advance Directives Date on File: 03/02/24 Do you have a plan to hurt others: No Plan Nutrition Risks: Dental problems Meds Allergies Allergy/AdvReac Type Severity Reaction Status Date / Time No Known Allergies Allergy Verified 04/05/24 19:58 [No Known Allergies*] Active Medications: Current Medications Enoxaparin Sodium (Enoxaparin Sodium 30 Mg/0.3 Ml Syringe) 30 mg SUBCUT Q24H [facility] Hydrocortisone Sodium Succinate (Hydrocortisone Sod Succ/Pf 100 Mg Vial) 50 mg IVPUSH Q8H [facility] Dextrose (D10) 250 mls @ 750 mls/hr IV Q15M PRN PRN Reason: per Hypoglycemia Standing Ord. Last Infusion: 04/06/24 13:05 Dose: Infused Piperacillin Sod/Tazobactam (Sod 3.375 gm/ Sodium Chloride) 50 mls @ 100 mls/hr IV Q8H [facility] Albumin Human (Kedbumin 25 %) 100 mls @ 133.333 mls/hr IV Q1H [facility] Stop: 04/06/24 15:59 Levothyroxine Sodium (Levothyroxine Sodium 100 Mcg/5 Ml Vial) 100 mcg IVPUSH DAILY@0600 [facility] Home Medications ?Medication ?Instructions ?Recorded ?Confirmed ?Last Taken ?Type calcipotriene 0.005 % topical cream 1 appl topical QAM 03/01/24 04/06/24 Unknown History lamotrigine 100 mg tablet 250 mg PO BID 03/01/24 04/06/24 Unknown History latanoprost 0.005 % eye drops 1 drp ophthalmic (eye) BEDTIME 03/01/24 04/06/24 Unknown History levothyroxine 112 mcg tablet 112 mcg PO DAILY@0730 03/01/24 04/06/24 Unknown History prednisone 1 mg tablet 4 mg PO DAILY 03/01/24 03/01/24 Unknown History rosuvastatin 20 mg tablet 20 mg PO DAILY 03/01/24 04/06/24 Unknown History testosterone cypionate 200 mg/mL 200 mg IM QWEEK 03/01/24 03/01/24 Unknown History intramuscular oil midodrine 10 mg tablet 10 mg PO TID@0800,1400,2000 04/06/24 04/06/24 Unknown History salicylic acid-sulfur 2 %-2 % 1 appl topical DAILY 04/06/24 04/06/24 Unknown History shampoo topiramate 100 mg tablet 150 mg PO BID 04/06/24 04/06/24 Unknown History Physical Exam 2 Vital Signs: Vital Signs: Last Vital Signs Temp 91.2 F L 04/06/24 13:05 Pulse 53 04/06/24 13:05 Resp 13 04/06/24 13:05 BP 91/52 L 04/06/24 13:05 Pulse Ox 98 04/06/24 13:05 O2 Del Method Room Air 04/06/24 13:05 BMI result Body Mass Index 15.6 General: acute distress, ill appearing and tired appearing Nutritional Appearance: Very poorly nourished and under weight, emaciated Eyes: appearance normal, both eyes and all related structures; Alignment and Position: alignment normal and position normal Neck: No lymphadenopathy, no thyromegaly Resp: bilateral air entry equal, occasional added sounds present Cardio: Regular rate, regular rhythm; Heart sounds: S1 normal heart sound present and S2 normal heart sound present GI: soft, nontender, no guarding, no hepatosplenomegaly : bladder normal to inspection, bladder normal to palpation, no renal angle tenderness Skin: no rashes or lesions noted and elasticity normal Neuro: Unresponsive, localizes pain Results Labs 04/06/24 10:28 04/06/24 10:28 Labs: Laboratory Results - last 24 hr 04/05/24 04/06/24 04/06/24 20:01 00:35 09:40 MCV 89.4 MCH 30.1 MCHC 33.7 RDW 18.7 H Plt Count 263 MPV 10.6 Immature Gran % (Auto) 0.2 Neut % (Auto) 81.7 H Lymph % (Auto) 9.9 L [place] % (Auto) 7.2 Eos % (Auto) 0.6 Baso % (Auto) 0.4 Lymph # (Auto) 0.8 L [place] # (Auto) 0.6 Eos # (Auto) 0.1 Baso # (Auto) 0.0 Abs Immat Gran (auto) 0.02 Absolute Neuts (auto) 6.9 Absolute Nucleated RBC 0.000 Nucleated RBC % (auto) 0.0 PT 11.2 INR 0.9 APTT 38.2 H Anion Gap 13 Estim Creat Clear Calc 22.8 Estimated GFR 35 POC Glucose 64 65 Random Glucose 92 Lactic Acid Calcium 9.8 Phosphorus Total Bilirubin 0.3 AST 60 H ALT 42 H Alkaline Phosphatase 131 H Total Protein 6.0 L Albumin 3.3 L TSH Free T4 Urine Color Urine Appearance Urine pH Ur Specific [place] Urine Protein Urine Glucose (UA) Urine Ketones Urine Blood Urine Nitrite Ur Leukocyte Esterase Urine RBC Urine WBC Ur Squamous Epith Cells Urine Bacteria Hyaline Casts Influenza Type A (PCR) Influenza Type B (PCR) RSV RNA Qual (PCR) SARS-CoV-2 RNA (RT-PCR) 04/06/24 04/06/24 04/06/24 10:01 10:28 10:29 MCV 89.9 MCH 30.1 MCHC 33.5 RDW 19.0 H Plt Count 234 MPV 10.6 Immature Gran % (Auto) 0.2 Neut % (Auto) 65.2 Lymph % (Auto) 22.1 [place] % (Auto) 7.5 Eos % (Auto) 4.3 H Baso % (Auto) 0.7 Lymph # (Auto) 1.2 [place] # (Auto) 0.4 Eos # (Auto) 0.2 Baso # (Auto) 0.0 Abs Immat Gran (auto) 0.01 Absolute Neuts (auto) 3.5 Absolute Nucleated RBC 0.000 Nucleated RBC % (auto) 0.0 PT INR APTT Anion Gap 9 L Estim Creat Clear Calc 27.8 Estimated GFR 44 POC Glucose Random Glucose 68 Lactic Acid 0.7 Calcium 9.7 Phosphorus Total Bilirubin AST ALT Alkaline Phosphatase Total Protein Albumin TSH < 0.01 L Free T4 1.19 Urine Color Yellow Urine Appearance Clear Urine pH 7.5 Ur Specific [place] <= 1.005 Urine Protein Trace Urine Glucose (UA) Negative Urine Ketones Negative Urine Blood Small (1+) H Urine Nitrite Negative Ur Leukocyte Esterase Negative Urine RBC 0-2 Urine WBC 0-5 Ur Squamous Epith Cells 0-2 Urine Bacteria None Seen Hyaline Casts 0-2 Influenza Type A (PCR) NEGATIVE Influenza Type B (PCR) NEGATIVE RSV RNA Qual (PCR) NEGATIVE SARS-CoV-2 RNA (RT-PCR) NEGATIVE 04/06/24 04/06/24 04/06/24 12:22 13:21 13:39 MCV MCH MCHC RDW Plt Count MPV Immature Gran % (Auto) Neut % (Auto) Lymph % (Auto) [place] % (Auto) Eos % (Auto) Baso % (Auto) Lymph # (Auto) [place] # (Auto) Eos # (Auto) Baso # (Auto) Abs Immat Gran (auto) Absolute Neuts (auto) Absolute Nucleated RBC Nucleated RBC % (auto) PT INR APTT Anion Gap Estim Creat Clear Calc Estimated GFR POC Glucose 54 L* 156 H Random Glucose Lactic Acid Calcium Phosphorus 1.2 L Total Bilirubin AST ALT Alkaline Phosphatase Total Protein Albumin TSH Free T4 Urine Color Urine Appearance Urine pH Ur Specific [place] Urine Protein Urine Glucose (UA) Urine Ketones Urine Blood Urine Nitrite Ur Leukocyte Esterase Urine RBC Urine WBC Ur Squamous Epith Cells Urine Bacteria Hyaline Casts Influenza Type A (PCR) Influenza Type B (PCR) RSV RNA Qual (PCR) SARS-CoV-2 RNA (RT-PCR) Imaging Radiologist's Impressions: Impressions Head CT 04/05/24 20:01 IMPRESSION: No significant interval changes compared to recent prior imaging. 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 Chronic mineralization in the left temporal operculum. Moderate diffuse brain parenchymal volume loss and mild chronic white matter microangiopathy. Chest X-Ray 04/06/24 11:06 IMPRESSION: No acute pulmonary disease. Assessment and Plan (1) Weakness: Status: Acute (2) Acute renal failure: Status: Acute (3) Epilepsy: Status: Acute (4) Acute encephalopathy: Status: Acute (5) Acute hypernatremia: Status: Acute Plan Neuro: Acute encephalopathy possibly due to metabolic encephalopathy CT of the brain did not show any acute intracranial changes Close neurological status monitoring in the ICU every hour Cardiac: Shock: Possibly secondary to combination of hypovolemic shock and hypoadrenalism Hypovolemic shock responded well to IV fluids, blood pressure is better with resuscitation Respiratory: Breathing stable GI: We will start on tube feeds tomorrow Renal: Acute kidney injury possibly secondary to hypovolemia Baseline creatinine normal, creatinine today is 1.52 We will closely monitor I's and O's Avoid nephrotoxic medications Hypernatremia: Secondary to volume depletion Should correct with volume repletion Heme: Chronic anemia, closely monitor H&H, transfuse for hemoglobin less than 7 grams/deciliter Endocrine: Panhypopituitarism: Presented with hypothermia, hypotension We will start the patient on IV hydrocortisone, IV levothyroxine and consult endocrinology for further recommendations Infectious disease: We will send pancultures We will start on empiric Zosyn given the hypotension. No source of infection, less likely to be sepsis. Procalcitonin levels has been sent Chronic malnutrition: Patient is emaciated and weak Musculoskeletal: Decubitus ulcer prevention protocol Lines: Peripheral Forrester catheter Prophylaxis: Lovenox, pantoprazole Patient has a advanced directive from the assisted living with says DNR
--- NOTE | 2024-04-06 14:42 | PHA.MEDREC ---
Pharmacy Consult ? Medication Reconciliation Pharmacy has completed the medication reconciliation. Got med list from [facility] and confirmed from list.
[2024-04-06 14:45] LABS: Lactic Acid 0.5 mmol/L (0.5-2.0)
[2024-04-06 14:53] LABS: Anion Gap 7 (12-20); Blood Urea Nitrogen 11 mg/dL (9-16); Calcium 8.7 mg/dL (8.4-10.2); Carbon Dioxide 20 mmol/L (22-29); Chloride 132 mmol/L (96-108); Estimated Glomerular Filt Rate 48; Glucose Fasting 168 mg/dL (60-99); Potassium 3.2 mmol/L (3.3-5.1); Sodium 156 mmol/L (135-145)
[2024-04-06] MEDS: Enoxaparin Sodium 30 MG/0.3 ML SYRINGE SUBCUT (15:12)
[2024-04-06] MEDS: Albumin Human 25 % 100 ML 133.33 ML IV ×2 (15:13→15:59)
[2024-04-06] MEDS: Piperacillin Sodium/Tazobactam 3.375 GM in 0.9 % Sodium Chloride 50 ML IV ×2 (15:13→22:53)
[2024-04-06] MEDS: Levothyroxine Sodium 100 MCG/5 ML VIAL IVPUSH (15:13)
[2024-04-06 15:52] LABS: Procalcitonin 0.11 ng/mL
[2024-04-06] MEDS: LORazepam 2 MG/ML VIAL 0.5 MG IVPUSH (15:59)
[2024-04-06] MEDS: Lactated Ringers 1,000 ML 999 ML IV (17:10)
[2024-04-06 17:37] LABS: Glucose, Whole Blood 101 mg/dL (60-115)
--- NOTE | 2024-04-06 17:49 | PC.NURSE ---
Assumed care at approx 1440, pt. arrived to ICU at that time. Pt. arousable to light pain, moaning with no clear speech. HR 90s-100s, SBP 100s-110s with MAPs >65. Forrester with core temp probe placed- core temp reading 92.8. Pt. placed on sanjay huggar. Pt. restless, attempting to pull off sanjay hugger and pulling at cardiac moniter wires and IVs. Camera placed in room, multiple attempts at redirection made by this RN with no effects. Pt. sitting up in bed and attempting to reach over side rail. MD at bedside to assess pt. PRN ativan administered per EMAR with good effect. Pt. SBPs sustaining 80s-90s, MAPs 55-65, MD notified- 1 L LR bolus administered per MAR with no effect on BP- MD notified. MD again at bedside, stating SBP >80 while pt. is asleep. SBP then maintaining 70s- MD notified and levophed gtt started per EMAR. 1 L 1/2 NS also administered per MD- see EMAR. Current BP 113/57 (75). Plan of care ongoing.
[2024-04-06] MEDS: Norepinephrine Bitartrate/D5W 8 MG/250 ML PLAST..BAG 4.98 MG IV (17:59)
[2024-04-06] MEDS: Hydrocortisone Sod Succ/PF 100 MG VIAL 50 MG IVPUSH (18:02)
[2024-04-06] MEDS: Sodium Chloride 0.45 % 1,000 ML 999 ML IV (18:07)
[2024-04-06 18:34] LABS: Alanine Aminotransferase 33 U/L (0-40); Albumin Level 3.1 g/dL (3.5-5.0); Alkaline Phosphatase 82 U/L (39-117); Anion Gap 14 (12-20); Aspartate Amino Transferase 43 U/L (5-37); Bilirubin Total 0.3 mg/dL (0.0-1.0); Blood Urea Nitrogen 9 mg/dL (9-16); Calcium 8.4 mg/dL (8.4-10.2); Carbon Dioxide 19 mmol/L (22-29); Chloride 129 mmol/L (96-108); Estimated Glomerular Filt Rate 50; Glucose Random 109 mg/dL (60-115); Potassium 3.3 mmol/L (3.3-5.1); Sodium 159 mmol/L (135-145); Total Protein 4.8 g/dL (6.5-8.0)
[2024-04-06 23:56] LABS: Glucose, Whole Blood 86 mg/dL (60-115)
[2024-04-07] VITALS (24 sets, daily range): BP systolic 97–144; BP diastolic 49–99; PULSE 44–80; RESP 12–22; TEMP 35.7–37.1; O2SAT 94–100; BMI 17.5
[2024-04-07] MEDS: Dextrose 10 % 250 ML 750 ML IV (00:39)
[2024-04-07] MEDS: Hydrocortisone Sod Succ/PF 100 MG VIAL 50 MG IVPUSH ×3 (02:19→19:24)
[2024-04-07] MEDS: Levothyroxine Sodium 100 MCG/5 ML VIAL IVPUSH (06:25)
[2024-04-07 06:26] LABS: MANUAL DIFF FLAG NO
[2024-04-07] MEDS: Piperacillin Sodium/Tazobactam 3.375 GM in 0.9 % Sodium Chloride 50 ML IV ×3 (06:28→22:52)
[2024-04-07 06:34] LABS: Basophils Percent Auto 0.2 % (0-2); Hemoglobin 8.8 g/dl (14.0-18.0); Imm Gran Abs Auto 0.02 X10*3/uL (0.00-0.03); Imm Gran Pct Auto 0.3 % (0.0-0.4); Lymphocytes Absolute Auto 0.5 X10*3/uL (1.2-4.9); Lymphocytes Percent Auto 7.7 % (20-40); Mean Corpuscular HGB Conc 33.8 g/dl (31.0-36.0); Mean Corpuscular Hemoglobin 30.1 pg (27.0-33.0); Mean Platelet Volume 10.9 fL (9.4-12.4); Monocytes Absolute Auto 0.2 X10*3/uL (0.1-1.2); Monocytes Percent Auto 3.3 % (2-11); Neutrophils Absolute Auto 5.8 x10*3/uL (2.0-8.3); Neutrophils Percent Auto 88.5 % (45-73); Platelet Count 209 X10*3/uL (160-400); Red Blood Count 2.92 X10*6/uL (4.60-5.80); White Blood Count 6.6 X10*3/uL (4.8-10.8)
[2024-04-07 06:53] LABS: Alanine Aminotransferase 35 U/L (0-40); Albumin Level 3.1 g/dL (3.5-5.0); Alkaline Phosphatase 98 U/L (39-117); Anion Gap 13 (12-20); Aspartate Amino Transferase 45 U/L (5-37); Bilirubin Total 0.2 mg/dL (0.0-1.0); Blood Urea Nitrogen 10 mg/dL (9-16); Calcium 8.5 mg/dL (8.4-10.2); Carbon Dioxide 17 mmol/L (22-29); Chloride 129 mmol/L (96-108); Creatinine Clr Calc Pharmacy 27.8; Estimated Glomerular Filt Rate 39; Glucose Random 119 mg/dL (60-115); Magnesium 2.2 mg/dL (1.6-2.6); Potassium 3.4 mmol/L (3.3-5.1); Sodium 156 mmol/L (135-145)
--- NOTE | 2024-04-07 09:53 | PM.CCPN ---
Subjective Subjective Date of Service: 04/07/24 Critical Care Time (minutes): 35 Comment: Mental status slightly better, answering some questions this morning Blood pressures improved, off vasopressor support Physical Exam Vital Signs: Vital Signs: Last Vital Signs Temp 97.7 F 04/07/24 09:00 Pulse 58 04/07/24 09:00 Resp 14 04/07/24 09:00 BP 121/63 04/07/24 09:00 Pulse Ox 97 04/07/24 09:00 O2 Del Method Room Air 04/07/24 09:00 BMI result Body Mass Index 17.5 General: Not in acute distress, ill appearing and tired appearing Nutritional Appearance: Chronically malnourished, cachectic and under weight Eyes: appearance normal, both eyes and all related structures; Alignment and Position: alignment normal and position normal Neck: No lymphadenopathy, no thyromegaly Resp: bilateral air entry equal, occasional added sounds present Cardio: Regular rate, regular rhythm; Heart sounds: S1 normal heart sound present and S2 normal heart sound present GI: soft, nontender, no guarding, no hepatosplenomegaly : bladder normal to inspection, bladder normal to palpation, no renal angle tenderness Skin: no rashes or lesions noted and elasticity normal Neuro: No focal deficits, follows some commands Objective Data Labs 04/07/24 05:38 04/07/24 05:38 Labs: Laboratory Results - last 24 hr 04/06/24 04/06/24 04/06/24 10:01 10:28 10:29 WBC 5.3 RBC 3.55 L Hgb 10.7 L Hct 31.9 L MCV 89.9 MCH 30.1 MCHC 33.5 RDW 19.0 H Plt Count 234 MPV 10.6 Immature Gran % (Auto) 0.2 Neut % (Auto) 65.2 Lymph % (Auto) 22.1 [place] % (Auto) 7.5 Eos % (Auto) 4.3 H Baso % (Auto) 0.7 Lymph # (Auto) 1.2 [place] # (Auto) 0.4 Eos # (Auto) 0.2 Baso # (Auto) 0.0 Abs Immat Gran (auto) 0.01 Absolute Neuts (auto) 3.5 Absolute Nucleated RBC 0.000 Nucleated RBC % (auto) 0.0 Sodium 156 H Potassium 3.4 Chloride 129 H Carbon Dioxide 21 L Anion Gap 9 L BUN 12 Creatinine 1.52 H Estim Creat Clear Calc 27.8 Estimated GFR 44 POC Glucose Random Glucose 68 Fasting Glucose Lactic Acid 0.7 Calcium 9.7 Phosphorus Magnesium Total Bilirubin AST ALT Alkaline Phosphatase Total Protein Albumin Procalcitonin TSH < 0.01 L Free T4 1.19 Urine Color Yellow Urine Appearance Clear Urine pH 7.5 Ur Specific [place] <= 1.005 Urine Protein Trace Urine Glucose (UA) Negative Urine Ketones Negative Urine Blood Small (1+) H Urine Nitrite Negative Ur Leukocyte Esterase Negative Urine RBC 0-2 Urine WBC 0-5 Ur Squamous Epith Cells 0-2 Urine Bacteria None Seen Hyaline Casts 0-2 Influenza Type A (PCR) NEGATIVE Influenza Type B (PCR) NEGATIVE RSV RNA Qual (PCR) NEGATIVE SARS-CoV-2 RNA (RT-PCR) NEGATIVE 04/06/24 04/06/24 04/06/24 12:22 13:21 13:39 WBC RBC Hgb Hct MCV MCH MCHC RDW Plt Count MPV Immature Gran % (Auto) Neut % (Auto) Lymph % (Auto) [place] % (Auto) Eos % (Auto) Baso % (Auto) Lymph # (Auto) [place] # (Auto) Eos # (Auto) Baso # (Auto) Abs Immat Gran (auto) Absolute Neuts (auto) Absolute Nucleated RBC Nucleated RBC % (auto) Sodium Potassium Chloride Carbon Dioxide Anion Gap BUN Creatinine Estim Creat Clear Calc Estimated GFR POC Glucose 54 L* 156 H Random Glucose Fasting Glucose Lactic Acid Calcium Phosphorus 1.2 L Magnesium Total Bilirubin AST ALT Alkaline Phosphatase Total Protein Albumin Procalcitonin TSH Free T4 Urine Color Urine Appearance Urine pH Ur Specific [place] Urine Protein Urine Glucose (UA) Urine Ketones Urine Blood Urine Nitrite Ur Leukocyte Esterase Urine RBC Urine WBC Ur Squamous Epith Cells Urine Bacteria Hyaline Casts Influenza Type A (PCR) Influenza Type B (PCR) RSV RNA Qual (PCR) SARS-CoV-2 RNA (RT-PCR) 04/06/24 04/06/24 04/06/24 14:24 17:29 18:12 WBC RBC Hgb Hct MCV MCH MCHC RDW Plt Count MPV Immature Gran % (Auto) Neut % (Auto) Lymph % (Auto) [place] % (Auto) Eos % (Auto) Baso % (Auto) Lymph # (Auto) [place] # (Auto) Eos # (Auto) Baso # (Auto) Abs Immat Gran (auto) Absolute Neuts (auto) Absolute Nucleated RBC Nucleated RBC % (auto) Sodium 156 H 159 H Potassium 3.2 L 3.3 Chloride 132 H 129 H Carbon Dioxide 20 L 19 L Anion Gap 7 L 14 BUN 11 9 Creatinine 1.41 H 1.38 Estim Creat Clear Calc 30.0 32.0 Estimated GFR 48 50 POC Glucose 101 Random Glucose 109 Fasting Glucose 168 H Lactic Acid 0.5 Calcium 8.7 D 8.4 Phosphorus Magnesium Total Bilirubin 0.3 AST 43 H ALT 33 Alkaline Phosphatase 82 Total Protein 4.8 L Albumin 3.1 L Procalcitonin 0.11 TSH Free T4 Urine Color Urine Appearance Urine pH Ur Specific [place] Urine Protein Urine Glucose (UA) Urine Ketones Urine Blood Urine Nitrite Ur Leukocyte Esterase Urine RBC Urine WBC Ur Squamous Epith Cells Urine Bacteria Hyaline Casts Influenza Type A (PCR) Influenza Type B (PCR) RSV RNA Qual (PCR) SARS-CoV-2 RNA (RT-PCR) 04/06/24 04/07/24 23:52 05:38 WBC 6.6 RBC 2.92 L Hgb 8.8 L Hct 26.0 L MCV 89.0 MCH 30.1 MCHC 33.8 RDW 19.0 H Plt Count 209 MPV 10.9 Immature Gran % (Auto) 0.3 Neut % (Auto) 88.5 H Lymph % (Auto) 7.7 L [place] % (Auto) 3.3 Eos % (Auto) 0.0 Baso % (Auto) 0.2 Lymph # (Auto) 0.5 L [place] # (Auto) 0.2 Eos # (Auto) 0.0 Baso # (Auto) 0.0 Abs Immat Gran (auto) 0.02 Absolute Neuts (auto) 5.8 Absolute Nucleated RBC 0.000 Nucleated RBC % (auto) 0.0 Sodium 156 H Potassium 3.4 Chloride 129 H Carbon Dioxide 17 L Anion Gap 13 BUN 10 Creatinine 1.70 H Estim Creat Clear Calc 27.8 Estimated GFR 39 POC Glucose 86 Random Glucose 119 H Fasting Glucose Lactic Acid Calcium 8.5 Phosphorus Magnesium 2.2 Total Bilirubin 0.2 AST 45 H ALT 35 Alkaline Phosphatase 98 Total Protein 5.0 L Albumin 3.1 L Procalcitonin TSH Free T4 Urine Color Urine Appearance Urine pH Ur Specific [place] Urine Protein Urine Glucose (UA) Urine Ketones Urine Blood Urine Nitrite Ur Leukocyte Esterase Urine RBC Urine WBC Ur Squamous Epith Cells Urine Bacteria Hyaline Casts Influenza Type A (PCR) Influenza Type B (PCR) RSV RNA Qual (PCR) SARS-CoV-2 RNA (RT-PCR) Progress Note: A&P Assessment and plan (1) Acute hypernatremia: Status: Acute (2) Acute encephalopathy: Status: Acute (3) Acute renal failure: Status: Acute (4) Epilepsy: Status: Acute (5) Weakness: Status: Acute Plan Neuro: Acute encephalopathy possibly due to metabolic encephalopathy from hypernatremia and endocrine dysfunction. Mental status has slightly improved when compared to yesterday CT of the brain did not show any acute intracranial changes Close neurological status monitoring in the ICU every hour Cardiac: Shock: Possibly secondary to combination of hypovolemic shock and hypoadrenalism, improved with resuscitation currently off vasopressor support Respiratory: Breathing stable GI: Feeds as tolerated Renal: Acute kidney injury possibly secondary to hypovolemia Baseline creatinine normal, creatinine increased to 1.7 this morning, we will continue to monitor We will closely monitor I's and O's Avoid nephrotoxic medications Hypernatremia: we will start on D5 water at 100 cc/hour, we will repeat labs this evening Heme: Chronic anemia, closely monitor H&H, transfuse for hemoglobin less than 7 grams/deciliter Endocrine: Panhypopituitarism: Presented with hypothermia, hypotension Continue IV hydrocortisone, IV levothyroxine and consult endocrinology for further recommendations Endocrine consulted Infectious disease: Cee cultures negative so far We will deescalate antibiotics to ceftriaxone Procalcitonin levels normal Chronic malnutrition: Patient is emaciated and weak Musculoskeletal: Decubitus ulcer prevention protocol Lines: Peripheral Forrester catheter Prophylaxis: Heparin, pantoprazole Patient has a advanced directive from the assisted living with says DNR Quality Stroke Does the patient have a stroke diagnosis?: No VTE Prior VTE?: No VTE Risk Level:: Medical - moderate - high VTE Device Contraindication: N/A - Device Ordered VTE Drug Contraindication: N/A - Med Ordered
[2024-04-07] MEDS: Dextrose 5 % 1,000 ML 100 ML IVCONT ×2 (11:11→22:56)
--- NOTE | 2024-04-07 11:43 | P.HPCC_ITS ---
History of Present Illness Date of Service: 04/07/24 Attending physician on admission: Xavi RICHARDSON Past Medical History Medical History Hypothyroidism Hyperlipidemia Seizure Social History Social History Household Members: Unknown / Unable to assess Housing: Assisted Living Facility Unable to assess alcohol history related to: Unable to respond Alcohol intake: current Alcohol intake frequency: a few times a month Alcohol type: wine Patient Tobacco Use Status: Tobacco use Unknown Use of substances other than those prescribed or required for medical reasons: Unable to respond Currently Displaying Signs/Symptoms of Drug Intoxication Withdrawal: No Advance Directives: Yes Advance Directives on File: Yes Advance Directives Date on File: 03/02/24 Do you have a plan to hurt others: No Plan Nutrition Risks: Dental problems Meds Allergies Allergy/AdvReac Type Severity Reaction Status Date / Time No Known Allergies Allergy Verified 04/05/24 19:58 [No Known Allergies*] Active Medications: Current Medications Atorvastatin Calcium (Atorvastatin Calcium 80 Mg Tablet) 80 mg PO DAILY [facility] Enoxaparin Sodium (Enoxaparin Sodium 30 Mg/0.3 Ml Syringe) 30 mg SUBCUT Q24H [facility] Last Admin: 04/06/24 15:12 Dose: 30 mg Hydrocortisone Sodium Succinate (Hydrocortisone Sod Succ/Pf 100 Mg Vial) 50 mg IVPUSH Q8H [facility] Last Admin: 04/07/24 10:03 Dose: 50 mg Dextrose (D10) 250 mls @ 750 mls/hr IV Q15M PRN PRN Reason: per Hypoglycemia Standing Ord. Last Infusion: 04/07/24 01:13 Dose: Infused Piperacillin Sod/Tazobactam (Sod 3.375 gm/ Sodium Chloride) 50 mls @ 100 mls/hr IV Q8H [facility] Last Infusion: 04/07/24 07:04 Dose: Infused Norepinephrine Bitartrate (Levophed) 8 mg in 250 mls @ 0 mls/hr IV .Q0M [facility]; Protocol Last Titration: 04/06/24 22:53 Dose: 0 mcg/kg/min, 0 mls/hr Dextrose (D10) 250 mls @ 750 mls/hr IV Q15M PRN PRN Reason: per Hypoglycemia Standing Ord. Dextrose (D5w) 1,000 mls @ 100 mls/hr IVCONT .Q10H [facility] Last Admin: 04/07/24 11:11 Dose: 100 mls/hr Lamotrigine (Lamotrigine 25 Mg Tablet) 250 mg PO BID [facility] Latanoprost (Latanoprost 0.005 % Ophth Melanie 2.5 Ml Drops) 1 drop EYE-BOTH BEDTIME [facility] Levothyroxine Sodium (Levothyroxine Sodium 100 Mcg/5 Ml Vial) 100 mcg IVPUSH DAILY@0600 [facility] Last Admin: 04/07/24 06:25 Dose: 100 mcg Lorazepam (Lorazepam 2 Mg/Ml Vial) 0.5 mg IVPUSH Q4H PRN PRN Reason: Restlessness Last Admin: 04/06/24 15:59 Dose: 0.5 mg Midodrine (Midodrine Hcl 10 Mg Tablet) 10 mg PO TID@0800,1400,2000 [facility] Non-Formulary Medication (Calcipotriene) 1 appl TOPICAL BID [facility] Non-Formulary Medication (Salicylic Acid-Sulfur) 1 appl TOPICAL DAILY PRN PRN Reason: Itching Topiramate (Topiramate 25 Mg Tablet) 150 mg PO BID [facility] Home Medications ?Medication ?Instructions ?Recorded ?Confirmed ?Last Taken ?Type calcipotriene 0.005 % topical cream 1 appl topical BID 03/01/24 04/06/24 Unknown History lamotrigine 100 mg tablet 250 mg PO BID 03/01/24 04/06/24 Unknown History latanoprost 0.005 % eye drops 1 drp ophthalmic (eye) BEDTIME 03/01/24 04/06/24 Unknown History levothyroxine 112 mcg tablet 112 mcg PO DAILY@0730 03/01/24 04/06/24 Unknown History prednisone 1 mg tablet 4 mg PO DAILY 03/01/24 04/06/24 Unknown History rosuvastatin 20 mg tablet 20 mg PO DAILY 03/01/24 04/06/24 Unknown History testosterone cypionate 200 mg/mL 200 mg IM TH 03/01/24 04/06/24 Unknown History intramuscular oil midodrine 10 mg tablet 10 mg PO TID@0800,1400,2000 04/06/24 04/06/24 Unknown History salicylic acid-sulfur 2 %-2 % 1 appl topical DAILY PRN Itching 04/06/24 04/06/24 Unknown History shampoo topiramate 100 mg tablet 150 mg PO BID 04/06/24 04/06/24 Unknown History Physical Exam 2 Vital Signs: Vital Signs: Last Vital Signs Temp 97.5 F 04/07/24 11:00 Pulse 54 04/07/24 11:00 Resp 18 04/07/24 11:00 BP 107/59 L 04/07/24 11:00 Pulse Ox 98 04/07/24 11:00 O2 Del Method Room Air 04/07/24 11:00 BMI result Body Mass Index 17.5 Results Labs 04/07/24 05:38 04/07/24 05:38 Labs: Laboratory Results - last 24 hr 04/06/24 04/06/24 04/06/24 10:28 12:22 13:21 MCV MCH MCHC RDW Plt Count MPV Immature Gran % (Auto) Neut % (Auto) Lymph % (Auto) [place] % (Auto) Eos % (Auto) Baso % (Auto) Lymph # (Auto) [place] # (Auto) Eos # (Auto) Baso # (Auto) Abs Immat Gran (auto) Absolute Neuts (auto) Absolute Nucleated RBC Nucleated RBC % (auto) Anion Gap Estim Creat Clear Calc Estimated GFR POC Glucose 54 L* 156 H Random Glucose Fasting Glucose Lactic Acid Calcium Phosphorus Magnesium Total Bilirubin AST ALT Alkaline Phosphatase Total Protein Albumin Procalcitonin Free T4 1.19 04/06/24 04/06/24 04/06/24 13:39 14:24 17:29 MCV MCH MCHC RDW Plt Count MPV Immature Gran % (Auto) Neut % (Auto) Lymph % (Auto) [place] % (Auto) Eos % (Auto) Baso % (Auto) Lymph # (Auto) [place] # (Auto) Eos # (Auto) Baso # (Auto) Abs Immat Gran (auto) Absolute Neuts (auto) Absolute Nucleated RBC Nucleated RBC % (auto) Anion Gap 7 L Estim Creat Clear Calc 30.0 Estimated GFR 48 POC Glucose 101 Random Glucose Fasting Glucose 168 H Lactic Acid 0.5 Calcium 8.7 D Phosphorus 1.2 L Magnesium Total Bilirubin AST ALT Alkaline Phosphatase Total Protein Albumin Procalcitonin 0.11 Free T4 04/06/24 04/06/24 04/07/24 18:12 23:52 05:38 MCV 89.0 MCH 30.1 MCHC 33.8 RDW 19.0 H Plt Count 209 MPV 10.9 Immature Gran % (Auto) 0.3 Neut % (Auto) 88.5 H Lymph % (Auto) 7.7 L [place] % (Auto) 3.3 Eos % (Auto) 0.0 Baso % (Auto) 0.2 Lymph # (Auto) 0.5 L [place] # (Auto) 0.2 Eos # (Auto) 0.0 Baso # (Auto) 0.0 Abs Immat Gran (auto) 0.02 Absolute Neuts (auto) 5.8 Absolute Nucleated RBC 0.000 Nucleated RBC % (auto) 0.0 Anion Gap 14 13 Estim Creat Clear Calc 32.0 27.8 Estimated GFR 50 39 POC Glucose 86 Random Glucose 109 119 H Fasting Glucose Lactic Acid Calcium 8.4 8.5 Phosphorus Magnesium 2.2 Total Bilirubin 0.3 0.2 AST 43 H 45 H ALT 33 35 Alkaline Phosphatase 82 98 Total Protein 4.8 L 5.0 L Albumin 3.1 L 3.1 L Procalcitonin Free T4 Imaging Radiologist's Impressions: Impressions Chest X-Ray 04/06/24 11:06 IMPRESSION: No acute pulmonary disease.
[2024-04-07] MEDS: Enoxaparin Sodium 30 MG/0.3 ML SYRINGE SUBCUT (12:17)
[2024-04-07 12:33] LABS: Glucose, Whole Blood 105 mg/dL (60-115)
--- NOTE | 2024-04-07 13:18 | MHC.SL.SWA ---
Risk of Aspiration Due to: Neurological Condition Reduced Cognition Weak Voice Dysphasia Diet Status: NPO Liquid Consistency and Strategies for Safe Swallow: Liquid Intake Recommendation: NPO Solid Food Consistency: Dietary Recommendations: NPO Oral Medication Intake: NPO Please contact the pharmacy regarding appropriate crushable or liquid drug formulations that are available whenever modified delivery is recommended. Swallowing Recommended Treatments: Compens. Strategy Educat. Recommendation for Speech: Further Testing Needed Inpatient Speech Therapy Comment: Recommend strict NPO. Pt not eliciting swallow across various consistencies. Pocketing liquids and solids; Had to manually remove bolus. MOTORCYCLE SALES ASSOCIATE to continue to follow. Escalator Operator Clinican/Clinical Fellow: No Supervisory Statement: I have reviewed and agree with the student/clinical fellow's documentation: N/A Speech Language Pathologist: Denae Ortiz M.A, [facility]-MOTORCYCLE SALES ASSOCIATE
--- NOTE | 2024-04-07 13:23 | MHC.CM.PN ---
IMM DELIVERED TO SISTER RAJAT SCHMID VIA TELEPHONE ([phone]) PT LETHARGIC AND UNABLE TO PARTICIPATE. SISTER REQUESTS COPY BE LEFT AT BEDSIDE. SISTER ALSO CLARIFIES SHE IS NOT PT GUARDIAN BUT POA. CORRECTION REQUEST SENT TO REGISTRATION. PT IS A RESIDENT OF [facility]. PT IS INDEPENDENT WITH MOBILITY , USES A CANE PRN WHEN OUTSIDE. +HCP ON FILE. PCP DR. REED DP: PER SISTER, PT IS VERY COMFORTABLE AT [facility] SHOULD STR BE RECOMMENDED. CM WILL AWAIT P.T. DETERMINATION. CM WILL CONTINUE TO FOLLOW FOR ANY CHANGE TO DC PLAN/NEEDS
[2024-04-07 16:33] LABS: Anion Gap 13 (12-20); Blood Urea Nitrogen 11 mg/dL (9-16); Calcium 8.4 mg/dL (8.4-10.2); Carbon Dioxide 17 mmol/L (22-29); Chloride 129 mmol/L (96-108); Creatinine Clr Calc Pharmacy 24.2; Estimated Glomerular Filt Rate 33; Glucose Random 164 mg/dL (60-115); Sodium 156 mmol/L (135-145)
--- NOTE | 2024-04-07 17:10 | PC.NURSE ---
Addendum entered by Brennon Lombardi RN 04/08/24 14:14: md informed pt converted from sb to afib 100's Addendum entered by Brennon Lombardi RN 04/08/24 10:12: informed Md of pt's labs Original Note: informed md of pt's temp, HR and K level
[2024-04-07 17:37] LABS: Glucose, Whole Blood 156 mg/dL (60-115)
[2024-04-07] MEDS: Potassium Chloride/H20 10 MEQ/100 ML PIGGYBACK 100 MEQ IV ×2 (17:46→18:54)
[2024-04-07] MEDS: Latanoprost 0.005 % Ophth Sol 2.5 ML DROPS 1 DROP EYE-BOTH (20:51)
[2024-04-08] VITALS (17 sets, daily range): BP systolic 111–134; BP diastolic 57–76; PULSE 40–96; RESP 12–19; TEMP 36–36.3; O2SAT 96–100; BMI 17.0
[2024-04-08 00:02] LABS: Glucose, Whole Blood 145 mg/dL (60-115)
[2024-04-08] MEDS: Hydrocortisone Sod Succ/PF 100 MG VIAL 50 MG IVPUSH ×3 (02:52→18:29)
[2024-04-08] MEDS: Levothyroxine Sodium 100 MCG/5 ML VIAL IVPUSH (06:11)
[2024-04-08] MEDS: Piperacillin Sodium/Tazobactam 3.375 GM in 0.9 % Sodium Chloride 50 ML IV ×2 (06:11→14:34)
[2024-04-08 06:46] LABS: MANUAL DIFF FLAG NO
[2024-04-08 07:02] LABS: Hematocrit 28.2 % (42.0-52.0); Hemoglobin 9.3 g/dl (14.0-18.0); Imm Gran Abs Auto 0.06 X10*3/uL (0.00-0.03); Imm Gran Pct Auto 0.7 % (0.0-0.4); Lymphocytes Absolute Auto 0.6 X10*3/uL (1.2-4.9); Lymphocytes Percent Auto 6.9 % (20-40); Mean Corpuscular Hemoglobin 30.2 pg (27.0-33.0); Mean Corpuscular Volume 91.6 fL (80.0-98.0); Mean Platelet Volume 11.2 fL (9.4-12.4); Monocytes Absolute Auto 0.5 X10*3/uL (0.1-1.2); Monocytes Percent Auto 5.4 % (2-11); Neutrophils Absolute Auto 7.4 x10*3/uL (2.0-8.3); Platelet Count 193 X10*3/uL (160-400); Red Blood Count 3.08 X10*6/uL (4.60-5.80); Red Cell Distribution Width 19.3 % (11.0-16.0); White Blood Count 8.6 X10*3/uL (4.8-10.8)
[2024-04-08 07:08] LABS: Alanine Aminotransferase 31 U/L (0-40); Albumin Level 3.1 g/dL (3.5-5.0); Alkaline Phosphatase 94 U/L (39-117); Anion Gap 14 (12-20); Aspartate Amino Transferase 35 U/L (5-37); Bilirubin Total 0.3 mg/dL (0.0-1.0); Blood Urea Nitrogen 12 mg/dL (9-16); Calcium 8.4 mg/dL (8.4-10.2); Carbon Dioxide 16 mmol/L (22-29); Chloride 125 mmol/L (96-108); Creatinine Clr Calc Pharmacy 23.6; Estimated Glomerular Filt Rate 33; Glucose Random 194 mg/dL (60-115); Sodium 152 mmol/L (135-145); Total Protein 5.2 g/dL (6.5-8.0)
[2024-04-08] MEDS: Dextrose 5 % 1,000 ML 100 ML IVCONT ×2 (10:13→21:13)
--- NOTE | 2024-04-08 11:30 | P.PNCC_ITS ---
Subjective Subjective Date of Service: 04/08/24 Interval History: Blood pressure is more stable off of vasopressor for about 24 hours now Episodes of drop in temperature which is associated with bradycardia- self improving Sodium down to 152 Critical Care Time (minutes): 35 Physical Exam 2 Vital Signs: Vital Signs: Last Vital Signs Temp 97.0 F 04/08/24 11:00 Pulse 40 L 04/08/24 11:00 Resp 13 04/08/24 11:00 BP 117/57 L 04/08/24 11:00 Pulse Ox 100 04/08/24 11:00 O2 Del Method Room Air 04/08/24 11:00 BMI result Body Mass Index 17.0 General: acute distress, ill appearing and tired appearing Nutritional Appearance: Cachectic, chronically malnourished and under weight Eyes: appearance normal, both eyes and all related structures; Alignment and Position: alignment normal and position normal Neck: No lymphadenopathy, no thyromegaly Resp: bilateral air entry equal, no added sounds Cardio: Regular rate, regular rhythm; Heart sounds: S1 normal heart sound present and S2 normal heart sound present GI: soft, nontender, no guarding, no hepatosplenomegaly : bladder normal to inspection, bladder normal to palpation, no renal angle tenderness Skin: no rashes or lesions noted and elasticity normal Neuro: oriented to person, partially oriented to place, moves all extremities, no focal deficits Objective Data Labs 04/08/24 05:20 04/08/24 05:20 Labs: Laboratory Results - last 24 hr 04/07/24 04/07/24 04/07/24 12:19 16:08 17:33 WBC RBC Hgb Hct MCV MCH MCHC RDW Plt Count MPV Immature Gran % (Auto) Neut % (Auto) Lymph % (Auto) [place] % (Auto) Eos % (Auto) Baso % (Auto) Lymph # (Auto) [place] # (Auto) Eos # (Auto) Baso # (Auto) Abs Immat Gran (auto) Absolute Neuts (auto) Absolute Nucleated RBC Nucleated RBC % (auto) Sodium 156 H Potassium 3.0 L Chloride 129 H Carbon Dioxide 17 L Anion Gap 13 BUN 11 Creatinine 1.95 H Estim Creat Clear Calc 24.2 Estimated GFR 33 POC Glucose 105 156 H Random Glucose 164 H Calcium 8.4 Total Bilirubin AST ALT Alkaline Phosphatase Total Protein Albumin 04/07/24 04/08/24 23:58 05:20 WBC 8.6 RBC 3.08 L Hgb 9.3 L Hct 28.2 L MCV 91.6 MCH 30.2 MCHC 33.0 RDW 19.3 H Plt Count 193 MPV 11.2 Immature Gran % (Auto) 0.7 H Neut % (Auto) 87.0 H Lymph % (Auto) 6.9 L [place] % (Auto) 5.4 Eos % (Auto) 0.0 Baso % (Auto) 0.0 Lymph # (Auto) 0.6 L [place] # (Auto) 0.5 Eos # (Auto) 0.0 Baso # (Auto) 0.0 Abs Immat Gran (auto) 0.06 H Absolute Neuts (auto) 7.4 Absolute Nucleated RBC 0.000 Nucleated RBC % (auto) 0.0 Sodium 152 H Potassium 3.0 L Chloride 125 H Carbon Dioxide 16 L Anion Gap 14 BUN 12 Creatinine 1.95 H Estim Creat Clear Calc 23.6 Estimated GFR 33 POC Glucose 145 H Random Glucose 194 H Calcium 8.4 Total Bilirubin 0.3 AST 35 ALT 31 Alkaline Phosphatase 94 Total Protein 5.2 L Albumin 3.1 L Microbiology Microbiology Results: Microbiology 04/06/24 10:29 Blood - Venous Blood Culture - Preliminary No growth after 24 hours. 04/06/24 09:30 Blood - Venous Blood Culture - Preliminary No growth after 24 hours. Progress Note: A&P Assessment and plan (1) Acute hypernatremia: Status: Acute (2) Acute encephalopathy: Status: Acute (3) Weakness: Status: Acute (4) Acute renal failure: Status: Acute (5) Epilepsy: Status: Acute Plan Neuro: Acute encephalopathy possibly due to metabolic encephalopathy from hypernatremia and endocrine dysfunction. Mental status has slightly improved when compared to yesterday, on baseline has dementia CT of the brain did not show any acute intracranial changes Close neurological status monitoring in the ICU every hour Cardiac: Shock: Possibly secondary to combination of hypovolemic shock and hypoadrenalism, improved with resuscitation currently off vasopressor support since yesterday morning Respiratory: Breathing stable GI: Did not pass the swallow evaluation, might benefit from PPI as he is cachectic and malnourished Renal: Acute kidney injury possibly secondary to ATN from shock Baseline creatinine normal, creatinine increased to 1.9 this morning, we will continue to monitor We will closely monitor I's and O's Avoid nephrotoxic medications Hypernatremia: Continue D5 water at 100 cc/hour, sodium down to 152 this morning Heme: Chronic anemia, closely monitor H&H, transfuse for hemoglobin less than 7 grams/deciliter Endocrine: Panhypopituitarism: Patient has an appointment tomorrow at [facility] for brain biopsy which possibly needs to be rescheduled as patient is not stable enough for an elective procedure Presented with hypothermia, hypotension Continue IV hydrocortisone, IV levothyroxine Endocrine consulted, we will see on Tuesday Infectious disease: Cee cultures negative so far Continue empiric ceftriaxone can stop on day 4 Procalcitonin levels normal Chronic malnutrition: Patient is emaciated and weak Musculoskeletal: Decubitus ulcer prevention protocol Lines: Peripheral Forrester catheter Prophylaxis: Heparin, pantoprazole Patient has a advanced directive from the assisted living with says DNR Updated patient's son Carmen on [phone] Quality Stroke Does the patient have a stroke diagnosis?: No VTE Prior VTE?: No VTE Risk Level:: Medical - moderate - high VTE Device Contraindication: N/A - Device Ordered VTE Drug Contraindication: N/A - Med Ordered
[2024-04-08 11:36] LABS: Glucose, Whole Blood 191 mg/dL (60-115)
[2024-04-08] MEDS: Enoxaparin Sodium 30 MG/0.3 ML SYRINGE SUBCUT (12:11)
--- NOTE | 2024-04-08 12:44 | PM.EVENT ---
Event Note Date of Service: 04/09/24 Event Note: Pt seen and examined, discussed with stringed instrument assembler. Admitted with panhypopituataris--hypernatremia, dalila, hypotension,--improving, transfering to med floor, will continue to follow, obtaining nephro consult, failed swallow eval. repeat swallow eval tomorrow Time Spent With Patient Time: Total time managing care of this patient today ____ minutes.
--- NOTE | 2024-04-08 13:53 | MHC.SL.SWA ---
Risk of Aspiration Due to: Neurological Condition Reduced Cognition Weak Voice Dysphasia Diet Status: Recommend continue NPO. Pt not eliciting swallow on PO trials w/ CONSUMER ELECTRONIC RETAIL SPECIALIST Liquid Consistency and Strategies for Safe Swallow: Liquid Intake Recommendation: NPO Solid Food Consistency: Dietary Recommendations: NPO Oral Medication Intake: NPO Please contact the pharmacy regarding appropriate crushable or liquid drug formulations that are available whenever modified delivery is recommended. Compensatory Strategies and Precautions to be Taken for Safe Swallow: Supervision While Eating and Drinking for Safe Swallow: Foods to Avoid: Swallowing Recommended Treatments: Compens. Strategy Educat. Recommendation for Speech: Further Testing Needed Inpatient Speech Therapy Comment: Recommend strict NPO. Pt not eliciting swallow across various consistencies. Pocketing liquids and solids; Had to manually remove bolus. CONSUMER ELECTRONIC RETAIL SPECIALIST to continue to follow. Trauma Surgeon Clinican/Clinical Fellow: No Supervisory Statement: I have reviewed and agree with the student/clinical fellow's documentation: N/A Speech Language Pathologist: Denae Ortiz M.A, [facility])-CONSUMER ELECTRONIC RETAIL SPECIALIST
[2024-04-08 17:56] LABS: Glucose, Whole Blood 193 mg/dL (60-115)
[2024-04-08 23:33] LABS: Glucose, Whole Blood 161 mg/dL (60-115)
[2024-04-09] MEDS: Piperacillin Sodium/Tazobactam 3.375 GM in 0.9 % Sodium Chloride 50 ML IV ×2 (01:47→06:48)
[2024-04-09] MEDS: Hydrocortisone Sod Succ/PF 100 MG VIAL 50 MG IVPUSH ×3 (01:48→17:45)
[2024-04-09 03:13] VITALS: BP 115/81; PULSE 82; RESP 18; TEMP 36; O2SAT 99
[2024-04-09] MEDS: Levothyroxine Sodium 100 MCG/5 ML VIAL IVPUSH (06:49)
[2024-04-09 06:53] LABS: Glucose, Whole Blood 120 mg/dL (60-115)
[2024-04-09 07:05] LABS: Anion Gap 14 (12-20); Blood Urea Nitrogen 14 mg/dL (9-16); Calcium 8.6 mg/dL (8.4-10.2); Carbon Dioxide 18 mmol/L (22-29); Chloride 119 mmol/L (96-108); Creatinine Clr Calc Pharmacy 26.4; Estimated Glomerular Filt Rate 38; Glucose Random 144 mg/dL (60-115); Sodium 148 mmol/L (135-145)
[2024-04-09 07:14] LABS: Potassium 2.7 mmol/L (3.3-5.1)
[2024-04-09 07:53] VITALS: BP 106/80; PULSE 86; RESP 16; TEMP 36.9; O2SAT 98
[2024-04-09 08:00] LABS: Magnesium 2.1 mg/dL (1.6-2.6)
[2024-04-09] MEDS: Atorvastatin Calcium 80 MG TABLET PO (08:56)
[2024-04-09] MEDS: Topiramate 25 MG TABLET 150 MG PO ×2 (08:56→22:45)
[2024-04-09] MEDS: Potassium Chloride/H20 10 MEQ/100 ML PIGGYBACK 100 MEQ IV ×2 (08:56→10:16)
[2024-04-09] MEDS: Midodrine HCl 10 MG TABLET PO ×2 (08:56→14:57)
[2024-04-09] MEDS: lamoTRIgine 25 MG TABLET 250 MG PO ×2 (08:56→22:46)
--- NOTE | 2024-04-09 10:09 | P.PNIM_ITS ---
Subjective Subjective Date of Service: 04/09/24 Interval History: f/u on panhypopituatarism with hypothermia, hypotension, irene, hypernatermia Overall improving, still confused, high sodium low potassium and not eating Physical Exam 2 Vital Signs: Vital Signs: Last Vital Signs Temp 98.4 F 04/09/24 07:53 Pulse 86 04/09/24 07:53 Resp 16 04/09/24 07:53 BP 106/80 04/09/24 07:53 Pulse Ox 98 04/09/24 07:53 O2 Del Method Room Air 04/09/24 07:53 BMI result Body Mass Index 17.0 General: oriented x 1, no acute distress Resp: CTA bilateral CVS: S1,S2,RRR GI: +BS, NT, no distention Skin: No rash Neuro: motor grossly intact Psych: appropriate affect Objective Data Active Medications Atorvastatin Calcium (Atorvastatin Calcium 80 Mg Tablet) 80 mg PO DAILY [facility] Last Admin: 04/09/24 08:56 Dose: 80 mg Documented By: SAVI Enoxaparin Sodium (Enoxaparin Sodium 30 Mg/0.3 Ml Syringe) 30 mg SUBCUT Q24H [facility] Last Admin: 04/08/24 12:11 Dose: 30 mg Documented By: TOM Hydrocortisone Sodium Succinate (Hydrocortisone Sod Succ/Pf 100 Mg Vial) 50 mg IVPUSH Q8H [facility] Last Admin: 04/09/24 01:48 Dose: 50 mg Documented By: PROSPER Dextrose (D10) 250 mls @ 750 mls/hr IV Q15M PRN PRN Reason: per Hypoglycemia Standing Ord. Last Infusion: 04/07/24 01:13 Dose: Infused Documented By: VIVIEN Piperacillin Sod/Tazobactam (Sod 3.375 gm/ Sodium Chloride) 50 mls @ 100 mls/hr IV Q8H [facility] Last Infusion: 04/09/24 07:18 Dose: Infused Documented By: SAVI Norepinephrine Bitartrate (Levophed) 8 mg in 250 mls @ 0 mls/hr IV .Q0M [facility]; Protocol Last Titration: 04/08/24 13:19 Dose: Infused Documented By: DUANEFAEamon Dextrose (D10) 250 mls @ 750 mls/hr IV Q15M PRN PRN Reason: per Hypoglycemia Standing Ord. Dextrose (D5w) 1,000 mls @ 100 mls/hr IVCONT .Q10H [facility] Last Admin: 04/08/24 21:13 Dose: 100 mls/hr Documented By: ILYA Lamotrigine (Lamotrigine 25 Mg Tablet) 250 mg PO BID [facility] Last Admin: 04/09/24 08:56 Dose: 250 mg Documented By: SAVI Latanoprost (Latanoprost 0.005 % Ophth Melanie 2.5 Ml Drops) 1 drop EYE-BOTH BEDTIME [facility] Last Admin: 04/08/24 22:41 Dose: Not Given Documented By: LIYA Non-Admin Reason: Med Not Available Levothyroxine Sodium (Levothyroxine Sodium 100 Mcg/5 Ml Vial) 100 mcg IVPUSH DAILY@0600 [facility] Last Admin: 04/09/24 06:49 Dose: 100 mcg Documented By: PROSPER Lorazepam (Lorazepam 2 Mg/Ml Vial) 0.5 mg IVPUSH Q4H PRN PRN Reason: Restlessness Last Admin: 04/06/24 15:59 Dose: 0.5 mg Documented By: VARSHA Midodrine (Midodrine Hcl 10 Mg Tablet) 10 mg PO TID@0800,1400,2000 [facility] Last Admin: 04/09/24 08:56 Dose: 10 mg Documented By: SAVI Non-Formulary Medication (Calcipotriene) 1 appl TOPICAL BID [facility] Non-Formulary Medication (Salicylic Acid-Sulfur) 1 appl TOPICAL DAILY PRN PRN Reason: Itching Topiramate (Topiramate 25 Mg Tablet) 150 mg PO BID [facility] Last Admin: 04/09/24 08:56 Dose: 150 mg Documented By: SAVI Labs 04/09/24 06:11 04/09/24 06:11 Labs: Laboratory Results - last 24 hr 04/08/24 04/08/24 04/08/24 11:32 17:52 23:28 Hold Purple Top Anion Gap Estim Creat Clear Calc Estimated GFR POC Glucose 191 H 193 H 161 H Random Glucose Calcium Magnesium 04/09/24 04/09/24 06:11 06:49 Hold Purple Top SEE NOTE Anion Gap 14 Estim Creat Clear Calc 26.4 Estimated GFR 38 POC Glucose 120 H Random Glucose 144 H Calcium 8.6 Magnesium 2.1 Microbiology Microbiology Results: Microbiology 04/06/24 10:29 Blood Culture - Preliminary Blood - Venous No growth after 48 hours. 04/06/24 09:30 Blood Culture - Preliminary Blood - Venous No growth after 48 hours. Assessment and Plan (1) Acute hypernatremia: Status: Acute (2) Acute encephalopathy: Status: Acute (3) Acute renal failure: Status: Acute Plan 78/m who lives by himself with past medical history of significant dementia, panhypopituitarism, SIADH, seizure disorder, paroxysmal AFib with 3rd visit to the ER this month due to fall and altered sensorium. He presented unresponsive, hypernatremia, bradycardic, IRENE, hypothermic (core temp of 88) and hypotensive and was admitted to ICU was consulted for admission. Acute metabolic encephalopathy due to hypernatremia and endocrine dysfunction as above. Mental status has slightly improved when compared to yesterday there is underlying dementia. CT of the brain did not show any acute intracranial changes Hypovolemic shock d/t adrenal inuciency not sepsis--resolved with IVF and IV steroid and brief use of vasopressors Did not pass the swallow evaluation, might benefit from PPI as he is cachectic and malnourished Acute kidney injury possibly secondary to ATN from shock Baseline creatinine normal, creatinine increased to 1.7 this morning, we will continue to monitor We will closely monitor I's and O's Avoid nephrotoxic medications Hypernatremia: Continue D5 water at 100 cc/hour, sodium down to 148 this morning Hypokalemia--replace with IV K Heme: Chronic anemia, closely monitor H&H, transfuse for hemoglobin less than 7 grams/deciliter Endocrine: Panhypopituitarism: Patient has an appointment today 04/09 at [facility] for brain biopsy which possibly needs to be rescheduled as patient is not stable enough for an elective procedure Presented with hypothermia, hypotension Continue IV hydrocortisone, IV levothyroxine Endocrine consult today Infectious disease: Cee cultures negative so far Continue empiric ceftriaxone can stop on day 5 Procalcitonin levels normal Chronic protein calory malnutrition: Patient is emaciated and weak, IVF while NPO, swallow eval Musculoskeletal: Decubitus ulcer prevention protocol Lines: Peripheral Ofrrester catheter Prophylaxis: Heparin, pantoprazole Patient has a advanced directive from the assisted living with says DNR Updated patient's son Carmen on [phone] DNR need for inpatient: management with IRENE, hypotension, hypernatermia Quality Stroke Does the patient have a stroke diagnosis?: No VTE Prior VTE?: No VTE Risk Level:: Medical - moderate - high VTE Device Contraindication: N/A - Device Ordered VTE Drug Contraindication: N/A - Med Ordered
[2024-04-09 10:11] LABS: MANUAL DIFF FLAG NO
[2024-04-09 10:18] LABS: Basophils Percent Auto 0.1 % (0-2); Hematocrit 31.3 % (42.0-52.0); Hemoglobin 10.7 g/dl (14.0-18.0); Imm Gran Abs Auto 0.08 X10*3/uL (0.00-0.03); Imm Gran Pct Auto 0.7 % (0.0-0.4); Lymphocytes Absolute Auto 0.6 X10*3/uL (1.2-4.9); Lymphocytes Percent Auto 5.3 % (20-40); Mean Corpuscular HGB Conc 34.2 g/dl (31.0-36.0); Mean Corpuscular Hemoglobin 30.6 pg (27.0-33.0); Mean Corpuscular Volume 89.4 fL (80.0-98.0); Mean Platelet Volume 11.3 fL (9.4-12.4); Monocytes Absolute Auto 0.5 X10*3/uL (0.1-1.2); Monocytes Percent Auto 4.4 % (2-11); Neutrophils Absolute Auto 9.9 x10*3/uL (2.0-8.3); Neutrophils Percent Auto 89.5 % (45-73); Platelet Count 167 X10*3/uL (160-400); Red Cell Distribution Width 19.2 % (11.0-16.0); White Blood Count 11.1 X10*3/uL (4.8-10.8)
[2024-04-09 11:32] VITALS: BP 113/79; PULSE 70; RESP 19; TEMP 36.7; O2SAT 99
[2024-04-09] MEDS: KCl 20 mEq in 5 % Dextrose 20 MEQ/1,000 ML IV.SOLN 100 MEQ IVCONT (11:55)
[2024-04-09] MEDS: Enoxaparin Sodium 30 MG/0.3 ML SYRINGE SUBCUT (12:01)
--- NOTE | 2024-04-09 12:01 | MHC.SL.SWA ---
Risk of Aspiration Due to: Neurological Condition Reduced Cognition Weak Voice Dysphasia Diet Status: UPGRADE from NPO Liquid Consistency and Strategies for Safe Swallow: Liquid Intake Recommendation: Thin Solid Food Consistency: Dietary Recommendations: Pureed (NDD1) Oral Medication Intake: Crushed with Puree Please contact the pharmacy regarding appropriate crushable or liquid drug formulations that are available whenever modified delivery is recommended. Compensatory Strategies and Precautions to be Taken for Safe Swallow: Sitting Upright (90 deg) Oral Check Alternate liquids & solids Supervision While Eating and Drinking for Safe Swallow: Total Assistance (1:1) Swallowing Recommended Treatments: Compens. Strategy Educat. Recommendation for Speech: Further Testing Needed Inpatient Speech Therapy Recommend UPGRADE to PUREE solids, THIN liquids, pills CRUSHED in puree. Pt requires 1-1 assist d/t confusion and need for frequent cues to swallow. Recommend alternate liquids/solids and oral checks d/t observed residue on roof of mouth. Pt unlikely to meet nutritional needs PO at this time, recommend dietary consult. Automotive Warranty Administrator Clinican/Clinical Fellow: No Supervisory Statement: I have reviewed and agree with the student/clinical fellow's documentation: N/A Speech Language Pathologist: Denae Ortiz M.A, CCC-PROBATION OFFICER
[2024-04-09 12:03] LABS: Glucose, Whole Blood 107 mg/dL (60-115)
--- NOTE | 2024-04-09 12:06 | PM.CNNEP ---
History of Present Illness Reason for Consult Consult date: 04/09/24 Reason for consult: IRENE Chief Complaint Chief complaint: Hypothermia History of Present Illness Narrative: 78-year-old male who lives by himself with past medical history of significant dementia, panhypopituitarism, SIADH, seizure disorder, paroxysmal AFib prsented to the ER due to fall and altered sensorium. patient became extremely drowsy, unresponsive, hypothermic and hypotensive and was in MICU until he got transferred to the floor . His body temperature is we are down to 88 F, he was bradycardic to 40s and 50s, blood pressures in 80s systolics. Labs at that time were significant for acute kidney injury with a creatinine of 1.52, hypernatremia with sodium of 156. He was subsequently transferred to the floor for continued care. Nephrology has been consulted to assist in his clinical care during his current hospital stay Review of Systems Review of Systems Yes all other systems are reviewed and are negative PMFSH Past Medical History Medical History Hypothyroidism Hyperlipidemia Seizure Social History Social History Household Members: Unknown / Unable to assess Housing: Assisted Living Facility Unable to assess alcohol history related to: Unable to respond Alcohol intake: current Alcohol intake frequency: a few times a month Alcohol type: wine Patient Tobacco Use Status: Tobacco use Unknown Use of substances other than those prescribed or required for medical reasons: Unable to respond Currently Displaying Signs/Symptoms of Drug Intoxication Withdrawal: No Advance Directives: Yes Advance Directives on File: Yes Advance Directives Date on File: 03/02/24 Do you have a plan to hurt others: No Plan Nutrition Risks: Dental problems service: No Meds Allergies Allergy/AdvReac Type Severity Reaction Status Date / Time No Known Allergies Allergy Verified 04/05/24 19:58 [No Known Allergies*] Active Medications: Current Medications Atorvastatin Calcium (Atorvastatin Calcium 80 Mg Tablet) 80 mg PO DAILY [facility] Last Admin: 04/09/24 08:56 Dose: 80 mg Enoxaparin Sodium (Enoxaparin Sodium 30 Mg/0.3 Ml Syringe) 30 mg SUBCUT Q24H [facility] Last Admin: 04/09/24 12:01 Dose: 30 mg Hydrocortisone Sodium Succinate (Hydrocortisone Sod Succ/Pf 100 Mg Vial) 50 mg IVPUSH Q8H [facility] Last Admin: 04/09/24 10:17 Dose: 50 mg Dextrose (D10) 250 mls @ 750 mls/hr IV Q15M PRN PRN Reason: per Hypoglycemia Standing Ord. Last Infusion: 04/07/24 01:13 Dose: Infused Piperacillin Sod/Tazobactam (Sod 3.375 gm/ Sodium Chloride) 50 mls @ 100 mls/hr IV Q8H [facility] Last Infusion: 04/09/24 07:18 Dose: Infused Norepinephrine Bitartrate (Levophed) 8 mg in 250 mls @ 0 mls/hr IV .Q0M [facility]; Protocol Last Titration: 04/08/24 13:19 Dose: Infused Dextrose (D10) 250 mls @ 750 mls/hr IV Q15M PRN PRN Reason: per Hypoglycemia Standing Ord. Potassium Chloride/Dextrose (Kcl 20 Meq In 5 % Dextrose) 20 meq in 1,000 mls @ 100 mls/hr IVCONT .Q10H [facility] Last Admin: 04/09/24 11:55 Dose: 100 mls/hr Lamotrigine (Lamotrigine 25 Mg Tablet) 250 mg PO BID [facility] Last Admin: 04/09/24 08:56 Dose: 250 mg Latanoprost (Latanoprost 0.005 % Ophth Melanie 2.5 Ml Drops) 1 drop EYE-BOTH BEDTIME [facility] Last Admin: 04/08/24 22:41 Dose: Not Given Levothyroxine Sodium (Levothyroxine Sodium 100 Mcg/5 Ml Vial) 100 mcg IVPUSH DAILY@0600 [facility] Last Admin: 04/09/24 06:49 Dose: 100 mcg Lorazepam (Lorazepam 2 Mg/Ml Vial) 0.5 mg IVPUSH Q4H PRN PRN Reason: Restlessness Last Admin: 04/06/24 15:59 Dose: 0.5 mg Midodrine (Midodrine Hcl 10 Mg Tablet) 10 mg PO TID@0800,1400,2000 [facility] Last Admin: 04/09/24 08:56 Dose: 10 mg Non-Formulary Medication (Calcipotriene) 1 appl TOPICAL BID [facility] Non-Formulary Medication (Salicylic Acid-Sulfur) 1 appl TOPICAL DAILY PRN PRN Reason: Itching Topiramate (Topiramate 25 Mg Tablet) 150 mg PO BID [facility] Last Admin: 04/09/24 08:56 Dose: 150 mg Home Medications ?Medication ?Instructions ?Recorded ?Confirmed ?Last Taken ?Type calcipotriene 0.005 % topical cream 1 appl topical BID 03/01/24 04/06/24 Unknown History lamotrigine 100 mg tablet 250 mg PO BID 03/01/24 04/06/24 Unknown History latanoprost 0.005 % eye drops 1 drp ophthalmic (eye) BEDTIME 03/01/24 04/06/24 Unknown History levothyroxine 112 mcg tablet 112 mcg PO DAILY@0730 03/01/24 04/06/24 Unknown History prednisone 1 mg tablet 4 mg PO DAILY 03/01/24 04/06/24 Unknown History rosuvastatin 20 mg tablet 20 mg PO DAILY 03/01/24 04/06/24 Unknown History testosterone cypionate 200 mg/mL 200 mg IM TH 03/01/24 04/06/24 Unknown History intramuscular oil midodrine 10 mg tablet 10 mg PO TID@0800,1400,2000 04/06/24 04/06/24 Unknown History salicylic acid-sulfur 2 %-2 % 1 appl topical DAILY PRN Itching 04/06/24 04/06/24 Unknown History shampoo topiramate 100 mg tablet 150 mg PO BID 04/06/24 04/06/24 Unknown History Physical Exam Vital Signs: Last Vital Signs Temp 98.0 F 04/09/24 11:32 Pulse 70 04/09/24 11:32 Resp 19 04/09/24 11:32 BP 113/79 04/09/24 11:32 Pulse Ox 99 04/09/24 11:32 O2 Del Method Room Air 04/09/24 11:32 BMI result Body Mass Index 17.0 Const General: no acute distress Neck Neck: Yes supple Resp Auscultation: diminished lung sounds Cardio Rate: regular rate GI Palpation (GI): Soft to palpation Neuro General: moves all extremities Results Lab Results 04/09/24 06:11 04/09/24 06:11 Lab results: Chemistry 04/06/24 04/06/24 04/06/24 13:39 14:24 18:12 Sodium 156 H 159 H Potassium 3.2 L 3.3 Carbon Dioxide 20 L 19 L BUN 11 9 Creatinine 1.41 H 1.38 Calcium 8.7 D 8.4 Phosphorus 1.2 L 04/07/24 04/07/24 04/08/24 05:38 16:08 05:20 Sodium 156 H 156 H 152 H Potassium 3.4 3.0 L 3.0 L Carbon Dioxide 17 L 17 L 16 L BUN 10 11 12 Creatinine 1.70 H 1.95 H 1.95 H Calcium 8.5 8.4 8.4 Phosphorus 04/09/24 06:11 Sodium 148 H Potassium 2.7 L* Carbon Dioxide 18 L BUN 14 Creatinine 1.74 H Calcium 8.6 Phosphorus Hematology 04/07/24 04/08/24 04/09/24 05:38 05:20 06:11 WBC 6.6 8.6 11.1 H Hgb 8.8 L 9.3 L 10.7 L Plt Count 209 193 167 Assessment and Plan (1) Acute renal failure: Qualifiers: Acute renal failure type: with acute tubular necrosis Qualified Code(s): N17.0 - Acute kidney failure with tubular necrosis Status: Acute Plan IRENE due to tubular injury No reason to suspect AIN/GN Serum creatinine plateaued/improved Needs to keep K over 4 C/W rest of current management No indication for renal replacement Shall continue to follow up Procedures Date of Service Date of Service: 04/09/24
--- NOTE | 2024-04-09 13:09 | MHC.CM.PN ---
Pt is not ready for DC, he needs continued hospital care for management of IRENE, hypotension, and hypernatremia. He resides in an [facility], [facility], and has been to STR at [facility] prior, and this would be his choice if needed at DC. CM will follow for DC needs.
[2024-04-09 13:48] VITALS: BMI 17.0
--- NOTE | 2024-04-09 13:53 | MHC.CLN ---
PT IS MODERATELY MALNOURISHED PT WITH MILDLY DEPLETED SUBCUTANEOUS FAT AND MUSCLE MASS WITH BMI 17 AND 13% SIGNIFICANT WT LOSS X 1 YEAR DIET RX: PUREED -APPROPRIATE OBSERVED PT'S LUNCH MEAL ON BEDSIDE TABLE UNTOUCHED RECOMMEND ADDING MAGIC CUP TID TO INCREASE KCALS SUPPLEMENT TO PROVIDE 870KCALS, 27G PROTEIN MONITOR PO INTAKE AND ENCOURAGE SUPPLEMENTS SEE FULL CLINICAL NUTRITION ASSESSMENT
[2024-04-09] MEDS: Piperacillin Sodium/Tazobactam 2.25 GM in 0.9 % Sodium Chloride 50 ML IV ×2 (14:59→22:46)
[2024-04-09 15:19] VITALS: BP 128/82; PULSE 61; RESP 19; TEMP 36.7; O2SAT 98
--- NOTE | 2024-04-09 16:26 | MHC.CM.PN ---
CM met with pt and family at their request, reviewed HCP which in on file. Pt is not yet ready for DC, DC plan is TBD. CM will follow and assist with DC plan.
[2024-04-09 16:45] LABS: Glucose, Whole Blood 139 mg/dL (60-115)
[2024-04-09 19:12] VITALS: BP 123/75; PULSE 64; RESP 18; TEMP 36.1; O2SAT 100
[2024-04-09] MEDS: Latanoprost 0.005 % Ophth Sol 2.5 ML DROPS 1 DROP EYE-BOTH (22:00)
[2024-04-10] MEDS: KCl 20 mEq in 5 % Dextrose 20 MEQ/1,000 ML IV.SOLN 100 MEQ IVCONT ×2 (02:37→17:34)
[2024-04-10 02:38] VITALS: BP 124/86; PULSE 69; RESP 18; TEMP 36.3; O2SAT 97
[2024-04-10] MEDS: Hydrocortisone Sod Succ/PF 100 MG VIAL 50 MG IVPUSH ×3 (02:41→20:49)
[2024-04-10 02:48] LABS: Glucose, Whole Blood 177 mg/dL (60-115)
[2024-04-10] MEDS: Levothyroxine Sodium 100 MCG/5 ML VIAL IVPUSH (06:13)
[2024-04-10] MEDS: Piperacillin Sodium/Tazobactam 2.25 GM in 0.9 % Sodium Chloride 50 ML IV ×4 (06:13→20:50)
[2024-04-10 08:00] VITALS: BP 131/78; PULSE 54; RESP 18; TEMP 36.3; O2SAT 98
[2024-04-10 09:00] LABS: Hematocrit 27.5 % (42.0-52.0); Hemoglobin 9.4 g/dl (14.0-18.0); Mean Corpuscular HGB Conc 34.2 g/dl (31.0-36.0); Mean Corpuscular Hemoglobin 29.9 pg (27.0-33.0); Mean Corpuscular Volume 87.6 fL (80.0-98.0); Mean Platelet Volume 11.1 fL (9.4-12.4); NRBC Pct Auto 0.3 /100WBC (0.0-0.2); Platelet Count 148 X10*3/uL (160-400); Red Blood Count 3.14 X10*6/uL (4.60-5.80); White Blood Count 10.6 X10*3/uL (4.8-10.8)
[2024-04-10 09:18] LABS: Anion Gap 11 (12-20); Blood Urea Nitrogen 19 mg/dL (9-16); Carbon Dioxide 20 mmol/L (22-29); Chloride 120 mmol/L (96-108); Creatinine Clr Calc Pharmacy 32.2; Estimated Glomerular Filt Rate 48; Glucose Random 141 mg/dL (60-115); Magnesium 1.9 mg/dL (1.6-2.6); Sodium 148 mmol/L (135-145)
[2024-04-10] MEDS: lamoTRIgine 25 MG TABLET 250 MG PO ×2 (09:31→20:58)
[2024-04-10] MEDS: Topiramate 25 MG TABLET 150 MG PO ×2 (09:32→20:58)
[2024-04-10] MEDS: Midodrine HCl 10 MG TABLET PO ×3 (09:32→21:12)
[2024-04-10] MEDS: Atorvastatin Calcium 80 MG TABLET PO (09:32)
--- NOTE | 2024-04-10 10:14 | P.PNNP_ITS ---
Subjective Subjective Date of Service: 04/10/24 Interval history: Events noted. Physical Exam 2 Vital Signs: Vital Signs: Last Vital Signs Temp 97.4 F 04/10/24 08:00 Pulse 54 04/10/24 08:00 Resp 18 04/10/24 08:00 BP 131/78 04/10/24 08:00 Pulse Ox 98 04/10/24 08:00 O2 Del Method Room Air 04/10/24 08:00 BMI result Body Mass Index 17.0 Const: General: no acute distress Neck: Neck: Yes supple Resp: Auscultation: diminished lung sounds Cardio: Rate: regular rate GI: Palpation (GI): Soft to palpation Neuro: General: moves all extremities Objective Data Labs 04/10/24 08:45 04/10/24 08:45 Labs: Laboratory Results - last 24 hr 04/09/24 04/09/24 04/09/24 06:11 11:59 16:35 WBC 11.1 H RBC 3.50 L Hgb 10.7 L Hct 31.3 L MCV 89.4 MCH 30.6 MCHC 34.2 RDW 19.2 H Plt Count 167 MPV 11.3 Immature Gran % (Auto) 0.7 H Neut % (Auto) 89.5 H Lymph % (Auto) 5.3 L [place] % (Auto) 4.4 Eos % (Auto) 0.0 Baso % (Auto) 0.1 Lymph # (Auto) 0.6 L [place] # (Auto) 0.5 Eos # (Auto) 0.0 Baso # (Auto) 0.0 Abs Immat Gran (auto) 0.08 H Absolute Neuts (auto) 9.9 H Absolute Nucleated RBC 0.000 Nucleated RBC % (auto) 0.0 Sodium Potassium Chloride Carbon Dioxide Anion Gap BUN Creatinine Estim Creat Clear Calc Estimated GFR POC Glucose 107 139 H Random Glucose Calcium Magnesium 04/10/24 04/10/24 02:43 08:45 WBC 10.6 RBC 3.14 L Hgb 9.4 L Hct 27.5 L MCV 87.6 MCH 29.9 MCHC 34.2 RDW 19.0 H Plt Count 148 L MPV 11.1 Immature Gran % (Auto) Neut % (Auto) Lymph % (Auto) [place] % (Auto) Eos % (Auto) Baso % (Auto) Lymph # (Auto) [place] # (Auto) Eos # (Auto) Baso # (Auto) Abs Immat Gran (auto) Absolute Neuts (auto) Absolute Nucleated RBC 0.030 H Nucleated RBC % (auto) 0.3 H Sodium 148 H Potassium 3.0 L Chloride 120 H Carbon Dioxide 20 L Anion Gap 11 L BUN 19 H Creatinine 1.43 H Estim Creat Clear Calc 32.2 Estimated GFR 48 POC Glucose 177 H Random Glucose 141 H Calcium 9.0 Magnesium 1.9 Microbiology Microbiology Results: Microbiology 04/06/24 10:29 Blood - Venous Blood Culture - Preliminary No growth after 48 hours. 04/06/24 09:30 Blood - Venous Blood Culture - Preliminary No growth after 48 hours. Procedures Date of Service Date of Service: 04/10/24 Assessment & Plan Assessment and plan (1) Acute renal failure: Status: Acute Plan IRENE due to tubular injury No reason to suspect AIN/GN Serum creatinine improving with hydration Hypernatremia due to free water deficit Replace with hypotonic fluids. Rate of correction acceptable Hypokalemia. Concur with supplementation and monitor levels C/W rest of current management No indication for renal replacement Shall continue to follow up Time Spent With Patient Time: Total time managing care of this patient today ____ minutes. Progress Note: Quality Stroke Does the patient have a stroke diagnosis?: No
--- NOTE | 2024-04-10 10:50 | P.PNIM_ITS ---
Subjective Subjective Date of Service: 04/10/24 Interval History: f/u on panhypopituatarism with hypothermia, hypotension, irene, hypernatermia Overall improving, still confused, sodium is trending down, potassium is better and eating Physical Exam 2 Vital Signs: Vital Signs: Last Vital Signs Temp 97.4 F 04/10/24 08:00 Pulse 54 04/10/24 08:00 Resp 18 04/10/24 08:00 BP 131/78 04/10/24 08:00 Pulse Ox 98 04/10/24 08:00 O2 Del Method Room Air 04/10/24 08:00 BMI result Body Mass Index 17.0 General: AO X 3, no acute distress Resp: CTA bilateral CVS: S1,S2,RRR GI: +BS, NT, no distention Skin: No rash Neuro: motor grossly intact Psych: appropriate affect Objective Data Active Medications Atorvastatin Calcium (Atorvastatin Calcium 80 Mg Tablet) 80 mg PO DAILY [facility] Last Admin: 04/10/24 09:32 Dose: 80 mg Documented By: BO Enoxaparin Sodium (Enoxaparin Sodium 30 Mg/0.3 Ml Syringe) 30 mg SUBCUT Q24H [facility] Last Admin: 04/09/24 12:01 Dose: 30 mg Documented By: SAVI Hydrocortisone Sodium Succinate (Hydrocortisone Sod Succ/Pf 100 Mg Vial) 50 mg IVPUSH Q8H [facility] Last Admin: 04/10/24 09:30 Dose: 50 mg Documented By: BO Dextrose (D10) 250 mls @ 750 mls/hr IV Q15M PRN PRN Reason: per Hypoglycemia Standing Ord. Last Infusion: 04/07/24 01:13 Dose: Infused Documented By: VIVIEN Norepinephrine Bitartrate (Levophed) 8 mg in 250 mls @ 0 mls/hr IV .Q0M [facility]; Protocol Last Titration: 04/08/24 13:19 Dose: Infused Documented By: DUANEFAA Dextrose (D10) 250 mls @ 750 mls/hr IV Q15M PRN PRN Reason: per Hypoglycemia Standing Ord. Potassium Chloride/Dextrose (Kcl 20 Meq In 5 % Dextrose) 20 meq in 1,000 mls @ 100 mls/hr IVCONT .Q10H [facility] Last Admin: 04/10/24 02:37 Dose: 100 mls/hr Documented By: GABRIEL Piperacillin Sod/Tazobactam (Sod 2.25 gm/ Sodium Chloride) 50 mls @ 100 mls/hr IV Q6H [facility] Last Admin: 04/10/24 09:30 Dose: 100 mls/hr Documented By: BO Lamotrigine (Lamotrigine 25 Mg Tablet) 250 mg PO BID [facility] Last Admin: 04/10/24 09:31 Dose: 250 mg Documented By: BO Latanoprost (Latanoprost 0.005 % Ophth Melanie 2.5 Ml Drops) 1 drop EYE-BOTH BEDTIME [facility] Last Admin: 04/09/24 22:00 Dose: 1 drop Documented By: GABRIEL Levothyroxine Sodium (Levothyroxine Sodium 100 Mcg/5 Ml Vial) 100 mcg IVPUSH DAILY@0600 [facility] Last Admin: 04/10/24 06:13 Dose: 100 mcg Documented By: GABRIEL Lorazepam (Lorazepam 2 Mg/Ml Vial) 0.5 mg IVPUSH Q4H PRN PRN Reason: Restlessness Last Admin: 04/06/24 15:59 Dose: 0.5 mg Documented By: VARSHA Midodrine (Midodrine Hcl 10 Mg Tablet) 10 mg PO TID@0800,1400,2000 [facility] Last Admin: 04/10/24 09:32 Dose: 10 mg Documented By: BO Non-Formulary Medication (Calcipotriene) 1 appl TOPICAL BID [facility] Non-Formulary Medication (Salicylic Acid-Sulfur) 1 appl TOPICAL DAILY PRN PRN Reason: Itching Topiramate (Topiramate 25 Mg Tablet) 150 mg PO BID [facility] Last Admin: 04/10/24 09:32 Dose: 150 mg Documented By: BO Labs 04/10/24 08:45 04/10/24 08:45 Labs: Laboratory Results - last 24 hr 04/09/24 04/09/24 04/10/24 11:59 16:35 02:43 MCV MCH MCHC RDW Plt Count MPV Absolute Nucleated RBC Nucleated RBC % (auto) Anion Gap Estim Creat Clear Calc Estimated GFR POC Glucose 107 139 H 177 H Random Glucose Calcium Magnesium 04/10/24 08:45 MCV 87.6 MCH 29.9 MCHC 34.2 RDW 19.0 H Plt Count 148 L MPV 11.1 Absolute Nucleated RBC 0.030 H Nucleated RBC % (auto) 0.3 H Anion Gap 11 L Estim Creat Clear Calc 32.2 Estimated GFR 48 POC Glucose Random Glucose 141 H Calcium 9.0 Magnesium 1.9 Assessment and Plan (1) Acute hypernatremia: Status: Acute (2) Acute encephalopathy: Status: Acute (3) Acute renal failure: Status: Acute Plan 78/m who lives by himself with past medical history of significant dementia, panhypopituitarism, SIADH, seizure disorder, paroxysmal AFib with 3rd visit to the ER this month due to fall and altered sensorium. He presented unresponsive, hypernatremia, bradycardic, IRENE, hypothermic (core temp of 88) and hypotensive and was admitted to ICU was consulted for admission. Acute metabolic encephalopathy due to hypernatremia and endocrine dysfunction as above. Mental status has slightly improved when compared to yesterday there is underlying dementia. CT of the brain did not show any acute intracranial changes Hypovolemic shock d/t adrenal insufficiency not sepsis--resolved with IVF and IV steroid and brief use of vasopressors Did not pass the swallow evaluation, might benefit from PPI as he is cachectic and malnourished Acute kidney injury possibly secondary to ATN from shock Baseline creatinine normal, creatinine increased to 1.4 this morning, we will continue to monitor We will closely monitor I's and O's Avoid nephrotoxic medications Hypernatremia: Continue D5 water at 100 cc/hour, sodium down to 148 this morning Hypokalemia--replace with IV K and oral K Heme: Chronic anemia, closely monitor H&H, transfuse for hemoglobin less than 7 grams/deciliter Endocrine: Panhypopituitarism: Patient has an appointment today 04/09 at [facility] for brain biopsy which possibly needs to be rescheduled as patient is not stable enough for an elective procedure Presented with hypothermia, hypotension Continue IV hydrocortisone, IV levothyroxine change to PO when eating Endocrine consult today Infectious disease: Cee cultures negative so far Continue empiric zosyn can stop on day 5 Procalcitonin levels normal Chronic protein calory malnutrition: Patient is emaciated and weak, IVF INK BLENDER recommends puree + thin liquid Musculoskeletal: Decubitus ulcer prevention protocol Lines: Peripheral Forrester catheter Prophylaxis: Heparin, pantoprazole Patient has a advanced directive from the assisted living with says DNR Updated patient's son Carmen on [phone] DNR need for inpatient: management with IRENE, hypotension, hypernatermia Quality Stroke Does the patient have a stroke diagnosis?: No VTE Prior VTE?: No VTE Risk Level:: Medical - moderate - high VTE Device Contraindication: N/A - Device Ordered VTE Drug Contraindication: N/A - Med Ordered
--- NOTE | 2024-04-10 11:09 | MHC.SPEECHCO ---
Pt refused PO trials x2 today. He may benefit from a repeat swallow study prior to discharge.
[2024-04-10 11:58] LABS: Glucose, Whole Blood 132 mg/dL (60-115)
[2024-04-10 12:00] VITALS: BP 120/80; PULSE 64; RESP 18; TEMP 36.4; O2SAT 94
[2024-04-10] MEDS: Enoxaparin Sodium 30 MG/0.3 ML SYRINGE SUBCUT (13:46)
[2024-04-10 16:00] VITALS: BP 127/76; PULSE 60; RESP 18; TEMP 36.1; O2SAT 100
[2024-04-10 17:28] LABS: Glucose, Whole Blood 149 mg/dL (60-115)
[2024-04-10 19:08] VITALS: BP 129/79; PULSE 60; RESP 18; TEMP 35.9; O2SAT 100
[2024-04-10] MEDS: Latanoprost 0.005 % Ophth Sol 2.5 ML DROPS 1 DROP EYE-BOTH (21:18)
[2024-04-10 23:21] VITALS: BP 134/78; PULSE 56; RESP 18; TEMP 36.1; O2SAT 99
[2024-04-10 23:23] LABS: Glucose, Whole Blood 117 mg/dL (60-115)
[2024-04-11] VITALS (8 sets, daily range): BP systolic 111–142; BP diastolic 67–81; PULSE 54–63; RESP 16–20; TEMP 36.1–36.8; O2SAT 98–100
[2024-04-11] MEDS: Piperacillin Sodium/Tazobactam 2.25 GM in 0.9 % Sodium Chloride 50 ML IV ×4 (02:06→20:59)
[2024-04-11] MEDS: Hydrocortisone Sod Succ/PF 100 MG VIAL 50 MG IVPUSH ×3 (02:08→20:59)
[2024-04-11] MEDS: KCl 20 mEq in 5 % Dextrose 20 MEQ/1,000 ML IV.SOLN 100 MEQ IVCONT (02:09)
[2024-04-11] MEDS: Levothyroxine Sodium 100 MCG/5 ML VIAL IVPUSH (05:50)
[2024-04-11 06:04] LABS: Glucose, Whole Blood 268 mg/dL (60-115)
[2024-04-11] MEDS: Midodrine HCl 10 MG TABLET PO ×3 (08:38→21:00)
[2024-04-11] MEDS: Topiramate 25 MG TABLET 150 MG PO ×2 (08:38→21:00)
[2024-04-11] MEDS: lamoTRIgine 25 MG TABLET 250 MG PO ×2 (08:39→20:59)
[2024-04-11] MEDS: Atorvastatin Calcium 80 MG TABLET PO (08:39)
--- NOTE | 2024-04-11 09:29 | P.PNIM_ITS ---
Subjective Subjective Date of Service: 04/11/24 Interval History: f/u on panhypopituatarism with hypothermia, hypotension, irene, hypernatermia Overall improving, remains confused with no new issues Physical Exam 2 Vital Signs: Vital Signs: Last Vital Signs Temp 98.2 F 04/11/24 07:15 Pulse 54 04/11/24 07:15 Resp 18 04/11/24 07:15 BP 133/75 04/11/24 07:15 Pulse Ox 99 04/11/24 07:15 O2 Del Method Room Air 04/11/24 07:15 BMI result Body Mass Index 17.0 General: Pleasantly Confused not oriented, no acute distress Resp: CTA bilateral CVS: S1,S2,RRR GI: +BS, NT, no distention Skin: No rash Neuro: motor grossly intact Psych: appropriate affect Objective Data Active Medications Atorvastatin Calcium (Atorvastatin Calcium 80 Mg Tablet) 80 mg PO DAILY [facility] Last Admin: 04/11/24 08:39 Dose: 80 mg Documented By: BO Enoxaparin Sodium (Enoxaparin Sodium 30 Mg/0.3 Ml Syringe) 30 mg SUBCUT Q24H [facility] Last Admin: 04/10/24 13:46 Dose: 30 mg Documented By: BO Hydrocortisone Sodium Succinate (Hydrocortisone Sod Succ/Pf 100 Mg Vial) 50 mg IVPUSH Q8H [facility] Last Admin: 04/11/24 02:08 Dose: 50 mg Documented By: KP-RIVLA Dextrose (D10) 250 mls @ 750 mls/hr IV Q15M PRN PRN Reason: per Hypoglycemia Standing Ord. Last Infusion: 04/07/24 01:13 Dose: Infused Documented By: VIVIEN Norepinephrine Bitartrate (Levophed) 8 mg in 250 mls @ 0 mls/hr IV .Q0M [facility]; Protocol Last Titration: 04/08/24 13:19 Dose: Infused Documented By: SOFFAA Dextrose (D10) 250 mls @ 750 mls/hr IV Q15M PRN PRN Reason: per Hypoglycemia Standing Ord. Potassium Chloride/Dextrose (Kcl 20 Meq In 5 % Dextrose) 20 meq in 1,000 mls @ 100 mls/hr IVCONT .Q10H [facility] Last Admin: 04/11/24 02:09 Dose: 100 mls/hr Documented By: JONAH Piperacillin Sod/Tazobactam (Sod 2.25 gm/ Sodium Chloride) 50 mls @ 100 mls/hr IV Q6H [facility] Last Admin: 04/11/24 08:39 Dose: 100 mls/hr Documented By: BO Lamotrigine (Lamotrigine 25 Mg Tablet) 250 mg PO BID [facility] Last Admin: 04/11/24 08:39 Dose: 250 mg Documented By: BO Latanoprost (Latanoprost 0.005 % Ophth Melanie 2.5 Ml Drops) 1 drop EYE-BOTH BEDTIME [facility] Last Admin: 04/10/24 21:18 Dose: 1 drop Documented By: GABRIEL Levothyroxine Sodium (Levothyroxine Sodium 100 Mcg/5 Ml Vial) 100 mcg IVPUSH DAILY@0600 [facility] Last Admin: 04/11/24 05:50 Dose: 100 mcg Documented By: JONAH Lorazepam (Lorazepam 2 Mg/Ml Vial) 0.5 mg IVPUSH Q4H PRN PRN Reason: Restlessness Last Admin: 04/06/24 15:59 Dose: 0.5 mg Documented By: VARSHA Midodrine (Midodrine Hcl 10 Mg Tablet) 10 mg PO TID@0800,1400,2000 [facility] Last Admin: 04/11/24 08:38 Dose: 10 mg Documented By: BO Non-Formulary Medication (Calcipotriene) 1 appl TOPICAL BID [facility] Non-Formulary Medication (Salicylic Acid-Sulfur) 1 appl TOPICAL DAILY PRN PRN Reason: Itching Topiramate (Topiramate 25 Mg Tablet) 150 mg PO BID [facility] Last Admin: 04/11/24 08:38 Dose: 150 mg Documented By: BO Labs 04/10/24 08:45 04/10/24 08:45 Labs: Laboratory Results - last 24 hr 04/10/24 04/10/24 04/10/24 11:46 17:24 23:19 POC Glucose 132 H 149 H 117 H 04/11/24 06:01 POC Glucose 268 H Assessment and Plan (1) Acute hypernatremia: Status: Acute (2) Acute encephalopathy: Status: Acute (3) Acute renal failure: Status: Acute Plan 78/m who lives by himself with past medical history of significant dementia, panhypopituitarism, SIADH, seizure disorder, paroxysmal AFib with 3rd visit to the ER this month due to fall and altered sensorium. He presented unresponsive, hypernatremia, bradycardic, IRENE, hypothermic (core temp of 88) and hypotensive and was admitted to ICU was consulted for admission. Acute metabolic encephalopathy due to hypernatremia and endocrine dysfunction as above. Overall mental state has improved but remains confused likely from underlying dementia. CT of the brain did not show any acute intracranial changes. Hypovolemic shock d/t adrenal insufficiency, no sepsis--resolved with IVF and IV steroid and brief use of vasopressors Acute kidney injury secondary to ATN from shock Baseline creatinine normal, creatinine continues to trend in the right direction continue monitoring and avoid nephrotoxins Hypernatremia: d/t volume depletion, endocrine problems, improving continue fluid Hypokalemia--replace with IV K and oral K if able to take Heme: Chronic anemia, closely monitor H&H, transfuse for hemoglobin less than 7 grams/deciliter Endocrine: Panhypopituitarism: Patient has an appointment on 04/[address] [facility] for brain biopsy, unfortnately not able to make it and will need to be rescheduled when clinically more stable. Continue IV hydrocorisone and IV Levothryoxine. 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
[2024-04-11 10:11] LABS: Anion Gap 12 (12-20); Blood Urea Nitrogen 16 mg/dL (9-16); Calcium 8.6 mg/dL (8.4-10.2); Carbon Dioxide 21 mmol/L (22-29); Chloride 117 mmol/L (96-108); Creatinine Clr Calc Pharmacy 36.5; Estimated Glomerular Filt Rate 55; Glucose Random 145 mg/dL (60-115); Potassium 3.5 mmol/L (3.3-5.1); Sodium 146 mmol/L (135-145)
[2024-04-11 11:00] LABS: Glucose, Whole Blood 183 mg/dL (60-115)
--- NOTE | 2024-04-11 12:38 | MHC.SPEECHCO ---
Addendum entered and electronically signed by LEO Dugan 04/11/24 12:43: Holding off on upgrade pendingre-assessment. Original Note: Pt fast asleep and not responding to voice or name. Per [employer] [place], he ate ~50% of his breakfast with no difficulty. RN will contact if Pt more alert.
[2024-04-11] MEDS: Enoxaparin Sodium 30 MG/0.3 ML SYRINGE SUBCUT (13:01)
--- NOTE | 2024-04-11 13:15 | P.PNNP_ITS ---
Subjective Subjective Date of Service: 04/11/24 Interval history: Overall improving, remains confused with no new issues Physical Exam 2 Vital Signs: Vital Signs: Last Vital Signs Temp 97.2 F 04/11/24 11:13 Pulse 56 04/11/24 11:17 Resp 20 04/11/24 11:13 BP 117/74 04/11/24 12:55 Pulse Ox 100 04/11/24 11:17 O2 Del Method Room Air 04/11/24 11:13 BMI result Body Mass Index 17.0 Const: General: no acute distress Neck: Neck: Yes supple Resp: Auscultation: diminished lung sounds Cardio: Rate: regular rate GI: Palpation (GI): Soft to palpation Neuro: General: moves all extremities Objective Data Labs 04/10/24 08:45 04/11/24 08:39 Labs: Laboratory Results - last 24 hr 04/10/24 04/10/24 04/11/24 17:24 23:19 06:01 Hold Purple Top Sodium Potassium Chloride Carbon Dioxide Anion Gap BUN Creatinine Estim Creat Clear Calc Estimated GFR POC Glucose 149 H 117 H 268 H Random Glucose Calcium 04/11/24 04/11/24 08:39 10:56 Hold Purple Top SEE NOTE Sodium 146 H Potassium 3.5 Chloride 117 H Carbon Dioxide 21 L Anion Gap 12 BUN 16 Creatinine 1.26 Estim Creat Clear Calc 36.5 Estimated GFR 55 POC Glucose 183 H Random Glucose 145 H Calcium 8.6 Microbiology Microbiology Results: Microbiology 04/06/24 10:29 Blood - Venous Blood Culture - Final No growth after 5 days. 04/06/24 09:30 Blood - Venous Blood Culture - Final No growth after 5 days. Procedures Date of Service Date of Service: 04/11/24 Assessment & Plan Assessment and plan (1) Acute renal failure: Status: Acute Plan IRENE due to tubular injury- resolving No reason to suspect AIN/GN Serum creatinine improved Needs more free water C/W rest of current management Shall continue to follow up Progress Note: Quality Stroke Does the patient have a stroke diagnosis?: No
--- NOTE | 2024-04-11 14:16 | W.MHC.ACPN ---
Advanced Care Planning Note Advanced Care Planning Note Time spent (in minutes): 20 Narrative: The goal of care was discussed in person with the Health Care Proxy, Mamta, and her son. 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 It was understood that the patient's quality of life has significantly declined, making him no longer a suitable candidate for brain biopsy and brain mass treatment. We discussed options including hospice care, comfort care, and revisited the patient's code status. They agreed on DNR and DNI, and requested hospice intake, with the understanding that the patient may eventually be discharged to a SNF for hospice care. Problems Discussed (1) Acute renal failure: (2) Acute hypernatremia: (3) Acute encephalopathy: (4) Weakness:
--- NOTE | 2024-04-11 14:51 | MHC.SL.SWA ---
Risk of Aspiration Due to: Neurological Condition Reduced Cognition Weak Voice Dysphasia Diet Status: NO CHANGE Liquid Consistency and Strategies for Safe Swallow: Liquid Intake Recommendation: Thin Solid Food Consistency: Dietary Recommendations: Pureed (NDD1) Oral Medication Intake: Crushed/Whole with Puree Please contact the pharmacy regarding appropriate crushable or liquid drug formulations that are available whenever modified delivery is recommended. Compensatory Strategies and Precautions to be Taken for Safe Swallow: Sitting Upright (90 deg) Small Bites and Sips Alternate Liquids/Solids Supervision While Eating and Drinking for Safe Swallow: Total Assistance (1:1) Swallowing Recommended Treatments: Compens. Strategy Educat. Recommendation for Speech: Inpatient Speech Therapy Recommend continue with PUREE solids (NDD1), THIN liquids, pills CRUSHED/WHOLE in PUREE. Pt requires 1-1 assist d/t confusion. Recommend alternate liquids/solids. Route Service Manager Clinican/Clinical Fellow: No Supervisory Statement: I have reviewed and agree with the student/clinical fellow's documentation: N/A Speech Language Pathologist: Denae Ortiz M.A., CCC-COMMERCIAL CREDIT PORTFOLIO MANAGER
--- NOTE | 2024-04-11 15:22 | MHC.CLN ---
F/U PT IS MODERATELY MALNOURISHED SEE FULL CLINICAL NUTRITION ASSESSMENT DATED 04/09/24 PO INTAKE 50% DIET RX: PUREED -APPROPRIATE PT RECEIVING MAGIC CUP TID TO INCREASE KCALS SUPPLEMENT PROVIDES 870KCALS, 27G PROTEIN FAMILY MEMBERS REQUESTED TO SPEAK WITH ME REGARDING FOOD PREFERENCES, CHOICES, AND PUREED FOOD ITEMS FOOD PREFERENCES RECORDED AND SENT TO [facility] REQUESTING ENSURE TID TO PROVIDE 1050KCALS, 60G PROTEIN-WILL ADD MONITOR PO INTAKE AND ENCOURAGE SUPPLEMENTS
[2024-04-11 18:13] LABS: Glucose, Whole Blood 102 mg/dL (60-115)
[2024-04-11 20:41] LABS: Glucose, Whole Blood 123 mg/dL (60-115)
[2024-04-11] MEDS: Latanoprost 0.005 % Ophth Sol 2.5 ML DROPS 1 DROP EYE-BOTH (21:00)
[2024-04-12 04:00] VITALS: BP 139/75; PULSE 59; RESP 18; TEMP 36.5; O2SAT 98
[2024-04-12] MEDS: Levothyroxine Sodium 100 MCG/5 ML VIAL IVPUSH (05:38)
[2024-04-12] MEDS: Hydrocortisone Sod Succ/PF 100 MG VIAL 50 MG IVPUSH ×3 (05:38→21:08)
[2024-04-12] MEDS: Piperacillin Sodium/Tazobactam 2.25 GM in 0.9 % Sodium Chloride 50 ML IV ×2 (05:38→08:56)
[2024-04-12 07:50] VITALS: BP 138/79; PULSE 59; RESP 20; TEMP 36.8; O2SAT 100
[2024-04-12 08:17] LABS: Anion Gap 12 (12-20); Blood Urea Nitrogen 16 mg/dL (9-16); Calcium 8.6 mg/dL (8.4-10.2); Carbon Dioxide 20 mmol/L (22-29); Chloride 121 mmol/L (96-108); Creatinine Clr Calc Pharmacy 40.4; Estimated Glomerular Filt Rate > 60; Glucose Random 91 mg/dL (60-115); Potassium 3.4 mmol/L (3.3-5.1); Sodium 150 mmol/L (135-145)
[2024-04-12 08:26] LABS: Glucose, Whole Blood 68 mg/dL (60-115)
[2024-04-12] MEDS: Topiramate 25 MG TABLET 150 MG PO ×2 (08:56→21:18)
[2024-04-12] MEDS: lamoTRIgine 25 MG TABLET 250 MG PO ×2 (08:56→21:15)
[2024-04-12] MEDS: Atorvastatin Calcium 80 MG TABLET PO (08:57)
[2024-04-12] MEDS: Midodrine HCl 10 MG TABLET PO ×2 (08:57→21:29)
--- NOTE | 2024-04-12 08:59 | P.PNIM_ITS ---
Subjective Subjective Date of Service: 04/12/24 Interval History: f/u on panhypopituatarism with hypothermia, hypotension, irene, hypernatermia Overall improving, remains pleasant confused with no new issues, sodium level rising again Physical Exam 2 Vital Signs: Vital Signs: Last Vital Signs Temp 98.2 F 04/12/24 07:50 Pulse 59 04/12/24 07:50 Resp 20 04/12/24 07:50 BP 138/79 04/12/24 07:50 Pulse Ox 100 04/12/24 07:50 O2 Del Method Room Air 04/12/24 07:50 BMI result General: Pleasantly Confused not oriented, no acute distress Resp: CTA bilateral CVS: S1,S2,RRR GI: +BS, NT, no distention Skin: No rash Neuro: motor grossly intact Psych: appropriate affect Objective Data Active Medications Atorvastatin Calcium (Atorvastatin Calcium 80 Mg Tablet) 80 mg PO DAILY [facility] Last Admin: 04/12/24 08:57 Dose: 80 mg Documented By: ROBERTA Enoxaparin Sodium (Enoxaparin Sodium 30 Mg/0.3 Ml Syringe) 30 mg SUBCUT Q24H [facility] Last Admin: 04/11/24 13:01 Dose: 30 mg Documented By: OLVINFEDEJA Hydrocortisone Sodium Succinate (Hydrocortisone Sod Succ/Pf 100 Mg Vial) 50 mg IVPUSH Q8H [facility] Last Admin: 04/12/24 05:38 Dose: 50 mg Documented By: GABRIEL Dextrose (D10) 250 mls @ 750 mls/hr IV Q15M PRN PRN Reason: per Hypoglycemia Standing Ord. Last Infusion: 04/07/24 01:13 Dose: Infused Documented By: VIVIEN Norepinephrine Bitartrate (Levophed) 8 mg in 250 mls @ 0 mls/hr IV .Q0M SOMMER; Protocol Last Titration: 04/08/24 13:19 Dose: Infused Documented By: SOFFAA Dextrose (D10) 250 mls @ 750 mls/hr IV Q15M PRN PRN Reason: per Hypoglycemia Standing Ord. Piperacillin Sod/Tazobactam (Sod 2.25 gm/ Sodium Chloride) 50 mls @ 100 mls/hr IV Q6H [facility] Last Admin: 04/12/24 08:56 Dose: 100 mls/hr Documented By: ROBERTA Dextrose (D5w) 1,000 mls @ 125 mls/hr IVCONT .Q8H [facility] Lamotrigine (Lamotrigine 25 Mg Tablet) 250 mg PO BID [facility] Last Admin: 04/12/24 08:56 Dose: 250 mg Documented By: ROBERTA Latanoprost (Latanoprost 0.005 % Ophth Melanie 2.5 Ml Drops) 1 drop EYE-BOTH BEDTIME [facility] Last Admin: 04/11/24 21:00 Dose: 1 drop Documented By: GABRIEL Levothyroxine Sodium (Levothyroxine Sodium 100 Mcg/5 Ml Vial) 100 mcg IVPUSH DAILY@0600 [facility] Last Admin: 04/12/24 05:38 Dose: 100 mcg Documented By: GABRIEL Midodrine (Midodrine Hcl 10 Mg Tablet) 10 mg PO TID@0800,1400,2000 [facility] Last Admin: 04/12/24 08:57 Dose: 10 mg Documented By: ROBERTA Non-Formulary Medication (Calcipotriene) 1 appl TOPICAL BID [facility] Non-Formulary Medication (Salicylic Acid-Sulfur) 1 appl TOPICAL DAILY PRN PRN Reason: Itching Topiramate (Topiramate 25 Mg Tablet) 150 mg PO BID [facility] Last Admin: 04/12/24 08:56 Dose: 150 mg Documented By: ROBERTA Labs 04/10/24 08:45 04/12/24 07:30 Labs: Laboratory Results - last 24 hr 04/11/24 04/11/24 04/11/24 08:39 10:56 16:57 Hold Purple Top SEE NOTE Anion Gap 12 Estim Creat Clear Calc 36.5 Estimated GFR 55 POC Glucose 183 H 102 Random Glucose 145 H Calcium 8.6 04/11/24 04/12/24 04/12/24 20:36 07:30 08:22 Hold Purple Top Anion Gap 12 Estim Creat Clear Calc 40.4 Estimated GFR > 60 POC Glucose 123 H 68 Random Glucose 91 Calcium 8.6 Microbiology Microbiology Results: Microbiology 04/06/24 10:29 Blood Culture - Final Blood - Venous No growth after 5 days. 04/06/24 09:30 Blood Culture - Final Blood - Venous No growth after 5 days. Assessment and Plan (1) Acute hypernatremia: Status: Acute (2) Acute encephalopathy: Status: Acute (3) Acute renal failure: Status: Acute Plan 78/m who lives by himself with past medical history of significant dementia, panhypopituitarism, SIADH, seizure disorder, paroxysmal AFib with 3rd visit to the ER this month due to fall and altered sensorium. He presented unresponsive, hypernatremia, bradycardic, IRENE, hypothermic (core temp of 88) and hypotensive and was admitted to ICU was consulted for admission. Acute metabolic encephalopathy due to hypernatremia and endocrine dysfunction as above. Overall mental state has improved but remains confused likely from underlying dementia and residual hypernatremia. CT of the brain did not show any acute intracranial changes. Hypovolemic shock d/t adrenal insufficiency, no sepsis--resolved with IVF and IV steroid and brief use of vasopressors, presently on midodrine Acute kidney injury secondary to ATN from shock--resolved following IVF Hypernatremia: d/t volume depletion, poor oral intake, endocrine problems. worse overnight, restart D5 Hypokalemia--replaced and resolved, monitor Heme: Chronic anemia, closely monitor H&H, transfuse for hemoglobin less than 7 grams/deciliter Endocrine: Panhypopituitarism: Patient has an appointment on 04/09 at [facility] for brain biopsy, unfortnately not able to make it and will need to be rescheduled when clinically more stable. Continue IV hydrocorisone and IV Levothryoxine. Will discuss with endocrine over the phone Infectious disease: Cee cultures negative so far Has received empiric Zosyn x 7 days Procalcitonin levels normal Chronic protein calory malnutrition: Patient is emaciated and weak, IVF PATTERN CHAIN BUILDER recommends puree + thin liquid Musculoskeletal: Decubitus ulcer prevention protocol Lines: Peripheral Forrester catheter Prophylaxis: Heparin, pantoprazole Goals discussed with family on 04/11 and proceeding to hospice consult... See advanced care planing documentation from 04/11 DNR/DNI need for inpatient: management with IRENE, hypotension, hypernatermia Quality Stroke Does the patient have a stroke diagnosis?: No VTE Prior VTE?: No VTE Risk Level:: Medical - moderate - high VTE Device Contraindication: N/A - Device Ordered VTE Drug Contraindication: N/A - Med Ordered
--- NOTE | 2024-04-12 09:56 | MHC.SL.SWA ---
Speech Pathologist Impression: Risk of Aspiration Due to: Neurological Condition Reduced Cognition Weak Voice Dysphasia Diet Status: Recommend continue with PUREE solids (NDD1), THIN liquids, pills CRUSHED/WHOLE in PUREE. Pt requires 1-1 assist d/t confusion. Recommend alternate liquids/solids. Liquid Consistency and Strategies for Safe Swallow: Liquid Intake Recommendation: Thin Liquid Intake Strategies: Small Sips Solid Food Consistency: Dietary Recommendations: Pureed (NDD1) Additional Modifications to Solid Foods: Oral Medication Intake: Crushed with Puree Please contact the pharmacy regarding appropriate crushable or liquid drug formulations that are available whenever modified delivery is recommended. Compensatory Strategies and Precautions to be Taken for Safe Swallow: Sitting Upright (90 deg) Small Bites and Sips Alternate Liquids/Solids Supervision While Eating and Drinking for Safe Swallow: Total Assistance (1:1) Foods to Avoid: Swallowing Recommended Treatments: Compens. Strategy Educat. Recommendation for Speech: Further Testing Needed Inpatient Speech Therapy Comment: Patient seen at breakfast. Patient was awake and alert, quite confused, at times perseverating on positioning of tray, as well as using napkin to wipe any food residue from mouth. At one point he noted to therapist he could use napkin to block taking food in mouth when given by therapist. Patient initially accepted some bites of cream of wheat, some tongue pumping noted during oral phase, but timely swallow with good oral clearance. After several bites, Patient began avoidance/perseverative behaviors. CONTENT CURATOR then offered magic cup on tray, with patient tolerating this better, taking full cup from CONTENT CURATOR. Patient pushed away all offered liquids. CONTENT CURATOR removed Ensure and juices from tray for patient to have at a later time. Given patient's high level of confusion, limited engagement/persistence with eating, recommend continue on Puree (NDD1) with Thin liquids, pills crushed in puree. CONTENT CURATOR will continue to follow. Frequency/Duration: Date Range for Service Req: Timeline to reassess: Tools Developer Clinican/Clinical Fellow: No Supervisory Statement: I have reviewed and agree with the student/clinical fellow's documentation: N/A Speech Language Pathologist: Denae Ortiz M.A., CCC-CONTENT CURATOR
[2024-04-12] MEDS: Dextrose 5 % 1,000 ML 125 ML IVCONT ×2 (10:08→18:42)
[2024-04-12 11:30] VITALS: BP 150/76; PULSE 66; RESP 18; TEMP 36.7; O2SAT 100
[2024-04-12 11:43] LABS: Glucose, Whole Blood 137 mg/dL (60-115)
[2024-04-12] MEDS: Enoxaparin Sodium 40 MG/0.4 ML SYRINGE SUBCUT (12:51)
--- NOTE | 2024-04-12 13:41 | MHC.CM.PN ---
Pt.s family has found a SNF that is near them in [place], [place] that they are looking to have pt. move to. They will call CM tomorrow to confirm, and pt will be transported via BLS.
[2024-04-12 15:23] VITALS: BP 139/72; PULSE 60; RESP 18; TEMP 36.3; O2SAT 98
[2024-04-12 18:23] LABS: Glucose, Whole Blood 132 mg/dL (60-115)
--- NOTE | 2024-04-12 19:48 | P.PNNP_ITS ---
Subjective Subjective Date of Service: 04/12/24 Interval history: Overall improving, remains pleasant confused with no new issues, sodium level rising again Physical Exam 2 Vital Signs: Vital Signs: Last Vital Signs Temp 97.3 F 04/12/24 15:23 Pulse 60 04/12/24 15:23 Resp 18 04/12/24 15:23 BP 139/72 04/12/24 15:23 Pulse Ox 98 04/12/24 15:23 O2 Del Method Room Air 04/12/24 15:23 BMI result Body Mass Index 17.0 Const: General: no acute distress Neck: Neck: Yes supple Resp: Auscultation: diminished lung sounds Cardio: Rate: regular rate GI: Palpation (GI): Soft to palpation Skin: General skin exam: no rashes or lesions noted Neuro: General: moves all extremities Extrem: General: Yes no pedal edema Objective Data Labs 04/10/24 08:45 04/12/24 07:30 Labs: Laboratory Results - last 24 hr 04/11/24 04/12/24 04/12/24 20:36 07:30 08:22 Sodium 150 H Potassium 3.4 Chloride 121 H Carbon Dioxide 20 L Anion Gap 12 BUN 16 Creatinine 1.14 Estim Creat Clear Calc 40.4 Estimated GFR > 60 POC Glucose 123 H 68 Random Glucose 91 Calcium 8.6 04/12/24 04/12/24 11:23 17:55 Sodium Potassium Chloride Carbon Dioxide Anion Gap BUN Creatinine Estim Creat Clear Calc Estimated GFR POC Glucose 137 H 132 H Random Glucose Calcium Microbiology Microbiology Results: Microbiology 04/06/24 10:29 Blood - Venous Blood Culture - Final No growth after 5 days. 04/06/24 09:30 Blood - Venous Blood Culture - Final No growth after 5 days. Procedures Date of Service Date of Service: 04/12/24 Assessment & Plan Assessment and plan (1) Acute hypernatremia: Status: Acute (2) Acute renal failure: Status: Acute Plan IRENE due to tubular injury- resolving No reason to suspect AIN/GN Serum creatinine improved Needs more free water ? Needs DDAVP C/W rest of current management Shall continue to follow up Progress Note: Quality Stroke Does the patient have a stroke diagnosis?: No
[2024-04-12 20:00] VITALS: BP 129/76; PULSE 64; RESP 18; TEMP 36.3; O2SAT 100
[2024-04-12] MEDS: Latanoprost 0.005 % Ophth Sol 2.5 ML DROPS 1 DROP EYE-BOTH (21:21)
[2024-04-12 22:09] LABS: TSH reflex Free T4 < 0.01 uIU/mL (0.32-4.0)
[2024-04-12 22:40] LABS: Free T4 (Free Thyroxine) 1.68 ng/dL (0.71-1.85)
[2024-04-12 23:11] VITALS: BP 132/78; PULSE 68; RESP 18; TEMP 36.5; O2SAT 100
[2024-04-12 23:24] LABS: Glucose, Whole Blood 142 mg/dL (60-115)
[2024-04-13] MEDS: Dextrose 5 % 1,000 ML 125 ML IVCONT ×2 (02:53→11:22)
[2024-04-13] MEDS: Hydrocortisone Sod Succ/PF 100 MG VIAL 50 MG IVPUSH ×3 (03:59→18:48)
[2024-04-13 04:00] VITALS: BP 135/71; PULSE 61; RESP 18; TEMP 36.4; O2SAT 99
[2024-04-13] MEDS: Levothyroxine Sodium 100 MCG/5 ML VIAL IVPUSH (05:40)
[2024-04-13 07:08] LABS: Glucose, Whole Blood 139 mg/dL (60-115)
[2024-04-13 07:29] VITALS: BP 126/66; PULSE 71; RESP 16; TEMP 36.6; O2SAT 100
--- NOTE | 2024-04-13 07:40 | P.CDIM_ITS ---
PROVIDER RESPONSE TEXT: To clarify, the appropriate diagnosis supported by the clinical indicators: Moderate QUERY TEXT: PHYSICIAN'S DOCUMENTATION REQUEST Date of Query: 04/10/2024 09:32 AM EDT Patient Name: Mitch Pete Admit Date: 04/06/2024 Dear Howard Thompson, A review of the medical record indicates additional documentation may be needed. Please review below and update the documentation accordingly. Documentation includes the diagnosis of malnutrition. Additional clinical indicators from the record include: Per Clinical Nutrition Assessment, pat with mildly depleted subcutaneous fat and muscle mass with BMI 17 and 13% significant weight loss x 1 year Patient is moderately malnourished Per Hospitalist Progress Note 04/09/24: patient is not eating. Chronic protein calorie malnutrition: Patient is emaciated and weak, IVF while NPO, swallow eval If possible, please provide additional specificity regarding the severity of the malnutrition using t he above information: Mild Moderate Severe Other (explain) Clinically unable to determine (explain) Thank you, Sheri Hong RN Use of terms such as suspected, likely, concern for, or probable (associated with a specific diagnosi s that is being evaluated, monitored, or treated as if it exists) are acceptable and can be coded in the inpatient se tting, when documented at the time of discharge. Please use your independent medical judgment in providing your response. THIS QUERY IS PART OF THE PERMANENT MEDICAL RECORD
--- NOTE | 2024-04-13 09:04 | P.PNNP_ITS ---
Subjective Subjective Date of Service: 04/13/24 Interval history: pleasantly confused; Lytes pending from AM Physical Exam 2 Vital Signs: Vital Signs: Last Vital Signs Temp 97.8 F 04/13/24 07:29 Pulse 71 04/13/24 07:29 Resp 16 04/13/24 07:29 BP 126/66 04/13/24 07:29 Pulse Ox 100 04/13/24 07:29 O2 Del Method Room Air 04/13/24 07:29 BMI result Body Mass Index 17.0 Const: General: no acute distress Neck: Neck: Yes supple Resp: Auscultation: diminished lung sounds Cardio: Rate: regular rate GI: Palpation (GI): Soft to palpation Neuro: General: moves all extremities Objective Data Labs 04/10/24 08:45 04/12/24 07:30 Labs: Laboratory Results - last 24 hr 04/12/24 04/12/24 04/12/24 07:30 11:23 17:55 POC Glucose 137 H 132 H TSH < 0.01 L Free T4 1.68 04/12/24 04/13/24 23:20 07:05 POC Glucose 142 H 139 H TSH Free T4 Microbiology Microbiology Results: Microbiology 04/06/24 10:29 Blood - Venous Blood Culture - Final No growth after 5 days. 04/06/24 09:30 Blood - Venous Blood Culture - Final No growth after 5 days. Procedures Date of Service Date of Service: 04/13/24 Assessment & Plan Assessment and plan (1) Acute renal failure: Status: Acute Plan IRENE due to tubular injury- resolving No reason to suspect AIN/GN Serum creatinine improved Needs more free water ? Needs DDAVP; Labs pending C/W rest of current management Shall continue to follow up Progress Note: Quality Stroke Does the patient have a stroke diagnosis?: No
[2024-04-13] MEDS: Topiramate 25 MG TABLET 150 MG PO ×2 (09:08→21:07)
[2024-04-13] MEDS: lamoTRIgine 25 MG TABLET 250 MG PO ×2 (09:08→21:07)
[2024-04-13] MEDS: Midodrine HCl 5 MG TABLET PO ×3 (09:08→21:08)
[2024-04-13] MEDS: Atorvastatin Calcium 80 MG TABLET PO (09:08)
[2024-04-13 09:41] LABS: Hematocrit 29.5 % (42.0-52.0); Hemoglobin 9.9 g/dl (14.0-18.0); Mean Corpuscular HGB Conc 33.6 g/dl (31.0-36.0); Mean Corpuscular Hemoglobin 30.1 pg (27.0-33.0); Mean Corpuscular Volume 89.7 fL (80.0-98.0); Mean Platelet Volume 12.1 fL (9.4-12.4); NRBC Pct Auto 0.2 /100WBC (0.0-0.2); Platelet Count 180 X10*3/uL (160-400); Red Blood Count 3.29 X10*6/uL (4.60-5.80); Red Cell Distribution Width 19.6 % (11.0-16.0)
[2024-04-13 10:03] LABS: Anion Gap 9 (12-20); Blood Urea Nitrogen 14 mg/dL (9-16); Calcium 8.9 mg/dL (8.4-10.2); Chloride 117 mmol/L (96-108); Estimated Glomerular Filt Rate 58; Glucose Random 144 mg/dL (60-115); Potassium 3.4 mmol/L (3.3-5.1); Sodium 149 mmol/L (135-145)
[2024-04-13 10:17] LABS: Carbon Dioxide 26 mmol/L (22-29)
[2024-04-13 11:41] VITALS: BP 120/57; PULSE 67; RESP 18; TEMP 36; O2SAT 100
--- NOTE | 2024-04-13 11:44 | P.PNIM_ITS ---
Subjective Subjective Date of Service: 04/13/24 Interval History: f/u on panhypopituatarism with hypothermia, hypotension, irene, hypernatermia Overall improving, remains pleasantly confused with no new issues, sodium level still high Physical Exam 2 Vital Signs: Vital Signs: Last Vital Signs Temp 96.8 F 04/13/24 11:41 Pulse 67 04/13/24 11:41 Resp 18 04/13/24 11:41 BP 120/57 L 04/13/24 11:41 Pulse Ox 100 04/13/24 11:41 O2 Del Method Room Air 04/13/24 11:41 BMI result Body Mass Index 17.0 General: Pleasantly Confused not oriented, no acute distress Resp: CTA bilateral CVS: S1,S2,RRR GI: +BS, NT, no distention Skin: No rash Neuro: motor grossly intact Psych: appropriate affect Objective Data Active Medications Atorvastatin Calcium (Atorvastatin Calcium 80 Mg Tablet) 80 mg PO DAILY [facility] Last Admin: 04/13/24 09:08 Dose: 80 mg Documented By: YONATHAN Enoxaparin Sodium (Enoxaparin Sodium 40 Mg/0.4 Ml Syringe) 40 mg SUBCUT Q24H [facility] Last Admin: 04/12/24 12:51 Dose: 40 mg Documented By: ROBERTA Hydrocortisone Sodium Succinate (Hydrocortisone Sod Succ/Pf 100 Mg Vial) 50 mg IVPUSH Q8H [facility] Last Admin: 04/13/24 11:22 Dose: 50 mg Documented By: YONATHAN Dextrose (D10) 250 mls @ 750 mls/hr IV Q15M PRN PRN Reason: per Hypoglycemia Standing Ord. Dextrose (D5w) 1,000 mls @ 150 mls/hr IVCONT .Q6H40M [facility] Last Admin: 04/13/24 11:22 Dose: 125 mls/hr Documented By: YONATHAN Lamotrigine (Lamotrigine 25 Mg Tablet) 250 mg PO BID [facility] Last Admin: 04/13/24 09:08 Dose: 250 mg Documented By: YONATHAN Latanoprost (Latanoprost 0.005 % Ophth Melanie 2.5 Ml Drops) 1 drop EYE-BOTH BEDTIME [facility] Last Admin: 04/12/24 21:21 Dose: 1 drop Documented By: AKHIL Levothyroxine Sodium (Levothyroxine Sodium 100 Mcg/5 Ml Vial) 100 mcg IVPUSH DAILY@0600 [facility] Last Admin: 04/13/24 05:40 Dose: 100 mcg Documented By: AKHIL Midodrine (Midodrine Hcl 5 Mg Tablet) 5 mg PO TID@0800,1400,2000 [facility] Last Admin: 04/13/24 09:08 Dose: 5 mg Documented By: YONATHAN Topiramate (Topiramate 25 Mg Tablet) 150 mg PO BID [facility] Last Admin: 04/13/24 09:08 Dose: 150 mg Documented By: YONATHAN Labs 04/13/24 08:46 04/13/24 08:46 Labs: Laboratory Results - last 24 hr 04/12/24 04/12/24 04/12/24 07:30 17:55 23:20 MCV MCH MCHC RDW Plt Count MPV Absolute Nucleated RBC Nucleated RBC % (auto) Anion Gap Estim Creat Clear Calc Estimated GFR POC Glucose 132 H 142 H Random Glucose Calcium TSH < 0.01 L Free T4 1.68 04/13/24 04/13/24 07:05 08:46 MCV 89.7 MCH 30.1 MCHC 33.6 RDW 19.6 H Plt Count 180 MPV 12.1 Absolute Nucleated RBC 0.030 H Nucleated RBC % (auto) 0.2 Anion Gap 9 L Estim Creat Clear Calc 38.0 Estimated GFR 58 POC Glucose 139 H Random Glucose 144 H Calcium 8.9 TSH Free T4 Assessment and Plan (1) Acute hypernatremia: Status: Acute (2) Acute encephalopathy: Status: Acute (3) Acute renal failure: Status: Acute Plan 78/m who lives by himself with past medical history of significant dementia, panhypopituitarism, SIADH, seizure disorder, paroxysmal AFib with 3rd visit to the ER this month due to fall and altered sensorium. He presented unresponsive, hypernatremia, bradycardic, IRENE, hypothermic (core temp of 88) and hypotensive and was admitted to ICU was consulted for admission. Acute metabolic encephalopathy due to hypernatremia and endocrine dysfunction. Overall mental state has improved but remains confused likely from underlying dementia and residual hypernatremia. CT of the brain did not show any acute intracranial changes. Hypovolemic shock d/t adrenal insufficiency, no sepsis--resolved with IVF and IV steroid and brief use of vasopressors, presently on midodrine, being tappered down Acute kidney injury secondary to ATN from shock--resolved following IVF Hypernatremia: d/t volume depletion, poor oral intake, endocrine problems. Continue D5 and increase rate Hypokalemia--replaced and resolved, monitor Heme: Chronic anemia, closely monitor H&H, transfuse for hemoglobin less than 7 grams/deciliter Endocrine: Panhypopituitarism: Patient has an appointment on 04/09 at [facility] for brain biopsy, unfortnately not able to make it and will need to be rescheduled when clinically more stable. Continue IV hydrocorisone and IV Levothryoxine. Will discuss with endocrine over the phone Infectious disease: Cee cultures negative so far Has received empiric Zosyn x 7 days Procalcitonin levels normal Chronic moderate protein calory malnutrition: Patient is emaciated and weak, IVF TUBE MAKER recommends puree + thin liquid family does not want tube feed Musculoskeletal: Decubitus ulcer prevention protocol Lines: Peripheral Forrester catheter Prophylaxis: Heparin, pantoprazole Goals discussed with family on 04/11 and proceeding to hospice consult... See advanced care planing documentation from 04/11 DNR/DNI need for inpatient: management with IRENE, hypotension, hypernatermia will be discharge with hospice per family request Quality Stroke Does the patient have a stroke diagnosis?: No VTE Prior VTE?: No VTE Risk Level:: Medical - moderate - high VTE Device Contraindication: N/A - Device Ordered VTE Drug Contraindication: N/A - Med Ordered
[2024-04-13 12:29] LABS: Glucose, Whole Blood 102 mg/dL (60-115)
--- NOTE | 2024-04-13 13:18 | MHC.SL.SWA ---
Speech Pathologist Impression: Risk of aspiration, oropharyngeal dysphagia Risk of Aspiration Due to: Neurological Condition Reduced Cognition Weak Voice Dysphasia Diet Status: Recommend continue with PUREE solids (NDD1), THIN liquids, pills CRUSHED/WHOLE in PUREE. Pt requires 1-1 assist d/t confusion. Recommend alternate liquids/solids. Liquid Consistency and Strategies for Safe Swallow: Liquid Intake Recommendation: Thin Liquid Intake Strategies: Small Sips Solid Food Consistency: Dietary Recommendations: Pureed (NDD1) Oral Medication Intake: Crushed with Puree Please contact the pharmacy regarding appropriate crushable or liquid drug formulations that are available whenever modified delivery is recommended. Compensatory Strategies and Precautions to be Taken for Safe Swallow: Sitting Upright (90 deg) Small Bites and Sips Alternate Liquids/Solids Rate of Ingestion Change Supervision While Eating and Drinking for Safe Swallow: Total Assistance (1:1) Swallowing Recommended Treatments: Compens. Strategy Educat. Recommendation for Speech: Further Testing Needed Inpatient Speech Therapy Manager Convention Clinican/Clinical Fellow: No Supervisory Statement: I have reviewed and agree with the student/clinical fellow's documentation: N/A Speech Language Pathologist: Fariba Ruiz M.A., CCC-[employer]
--- NOTE | 2024-04-13 14:10 | MHC.CLN ---
F/U PO INTAKE REMAINS 50% CONSISTENTLY DIET RX: PUREED -APPROPRIATE PT RECEIVING MAGIC CUP TID TO INCREASE KCALS SUPPLEMENT PROVIDES 870KCALS, 27G PROTEIN PT RECEIVING ENSURE TID TO PROVIDE 1050KCALS, 60G PROTEIN PER FAMILY REQUEST NO PEG PER FAMILY; HOSPICE CONSULT PENDING MONITOR PO INTAKE AND ENCOURAGE SUPPLEMENTS
--- NOTE | 2024-04-13 14:14 | MHC.CM.PN ---
Pt.'s family live out of state, they have found a continuing care facility that is near them in [place], [place]. It is: [facility], [address], [place] [address], , fax# [phone], contact: Cele Hartmann. Requested information has been faxed to them. Tentative plan is for pt to transfer there via [facility] on Tuesday, 04/17.
[2024-04-13] MEDS: Enoxaparin Sodium 40 MG/0.4 ML SYRINGE SUBCUT (14:39)
[2024-04-13 15:56] VITALS: BP 139/79; PULSE 63; RESP 20; TEMP 36; O2SAT 100
[2024-04-13 16:31] LABS: Glucose, Whole Blood 142 mg/dL (60-115)
[2024-04-13 19:53] VITALS: BP 130/82; PULSE 125; RESP 18; TEMP 36.2; O2SAT 100
[2024-04-13 20:40] LABS: Glucose, Whole Blood 114 mg/dL (60-115)
[2024-04-13] MEDS: Dextrose 5 % 1,000 ML 20 ML IVCONT (23:07)
[2024-04-14] VITALS: BP 116/71; PULSE 66; RESP 20; TEMP 36.3; O2SAT 100
[2024-04-14 02:06] LABS: Glucose, Whole Blood 112 mg/dL (60-115)
[2024-04-14 03:47] VITALS: BP 127/75; PULSE 69; RESP 20; TEMP 36.1; O2SAT 100
[2024-04-14] MEDS: Hydrocortisone Sod Succ/PF 100 MG VIAL 50 MG IVPUSH ×3 (04:10→18:23)
[2024-04-14 05:56] LABS: Glucose, Whole Blood 82 mg/dL (60-115)
[2024-04-14 07:37] VITALS: BP 122/74; PULSE 70; RESP 18; TEMP 36.2; O2SAT 100
[2024-04-14] MEDS: Levothyroxine Sodium 100 MCG/5 ML VIAL IVPUSH (07:45)
[2024-04-14 07:51] LABS: Anion Gap 11 (12-20); Blood Urea Nitrogen 14 mg/dL (9-16); Calcium 8.8 mg/dL (8.4-10.2); Carbon Dioxide 26 mmol/L (22-29); Chloride 118 mmol/L (96-108); Creatinine Clr Calc Pharmacy 44.3; Estimated Glomerular Filt Rate > 60; Glucose Random 96 mg/dL (60-115); Potassium 3.2 mmol/L (3.3-5.1); Sodium 152 mmol/L (135-145)
[2024-04-14] MEDS: lamoTRIgine 25 MG TABLET 250 MG PO ×2 (08:23→20:55)
[2024-04-14] MEDS: Topiramate 25 MG TABLET 150 MG PO ×2 (08:23→20:55)
[2024-04-14] MEDS: Midodrine HCl 5 MG TABLET PO ×3 (08:24→20:56)
[2024-04-14] MEDS: Atorvastatin Calcium 80 MG TABLET PO (08:24)
--- NOTE | 2024-04-14 10:48 | MHC.CM.PN ---
SUDEEP received a call from Patient's Brother/HCP/Jimbo and per his request, SUDEEP has faxed requested information to Dr. Sampson Neff (will be Patient's Hospice MD in [place])@ [phone]. Dr. Neff's cell is [phone]. Jimbo anticipates everything being in order for dc on Tuesday04/18/2024.SUDEEP will follow.
[2024-04-14 11:06] VITALS: BP 102/66; PULSE 95; RESP 16; TEMP 36.4; O2SAT 99
[2024-04-14 11:46] LABS: Glucose, Whole Blood 146 mg/dL (60-115)
[2024-04-14] MEDS: Enoxaparin Sodium 40 MG/0.4 ML SYRINGE SUBCUT (12:08)
[2024-04-14] MEDS: Dextrose 5 % 1,000 ML 200 ML IVCONT (12:15)
--- NOTE | 2024-04-14 13:03 | P.PNIM_ITS ---
Subjective Subjective Date of Service: 04/14/24 Interval History: f/u on panhypopituatarism with hypothermia, hypotension, irene, hypernatermia Pretty alert, yet confused, no distress, sodium level remains high Physical Exam 2 Vital Signs: Vital Signs: Last Vital Signs Temp 97.6 F 04/14/24 11:06 Pulse 95 04/14/24 11:06 Resp 16 04/14/24 11:06 BP 102/66 04/14/24 11:06 Pulse Ox 99 04/14/24 11:06 O2 Del Method Room Air 04/14/24 07:37 BMI result Body Mass Index 17.0 General: Pleasantly Confused not oriented, no acute distress Resp: CTA bilateral CVS: S1,S2,RRR GI: +BS, NT, no distention Skin: No rash Neuro: motor grossly intact Psych: appropriate affect Objective Data Active Medications Atorvastatin Calcium (Atorvastatin Calcium 80 Mg Tablet) 80 mg PO DAILY [facility] Last Admin: 04/14/24 08:24 Dose: 80 mg Documented By: LISA Enoxaparin Sodium (Enoxaparin Sodium 40 Mg/0.4 Ml Syringe) 40 mg SUBCUT Q24H [facility] Last Admin: 04/14/24 12:08 Dose: 40 mg Documented By: LISA Hydrocortisone Sodium Succinate (Hydrocortisone Sod Succ/Pf 100 Mg Vial) 50 mg IVPUSH Q8H [facility] Last Admin: 04/14/24 12:09 Dose: 50 mg Documented By: LISA Dextrose (D10) 250 mls @ 750 mls/hr IV Q15M PRN PRN Reason: per Hypoglycemia Standing Ord. Lamotrigine (Lamotrigine 25 Mg Tablet) 250 mg PO BID [facility] Last Admin: 04/14/24 08:23 Dose: 250 mg Documented By: LISA Latanoprost (Latanoprost 0.005 % Ophth Melanie 2.5 Ml Drops) 1 drop EYE-BOTH BEDTIME [facility] Last Admin: 04/13/24 22:43 Dose: Not Given Documented By: NAT Non-Admin Reason: Patient Asleep Levothyroxine Sodium (Levothyroxine Sodium 100 Mcg/5 Ml Vial) 100 mcg IVPUSH DAILY@0600 [facility] Last Admin: 04/14/24 07:45 Dose: 100 mcg Documented By: NAT Midodrine (Midodrine Hcl 5 Mg Tablet) 5 mg PO TID@0800,1400,2000 [facility] Last Admin: 04/14/24 08:24 Dose: 5 mg Documented By: LISA Topiramate (Topiramate 25 Mg Tablet) 150 mg PO BID [facility] Last Admin: 04/14/24 08:23 Dose: 150 mg Documented By: LISA Labs 04/13/24 08:46 04/14/24 06:55 Labs: Laboratory Results - last 24 hr 04/13/24 04/13/24 04/14/24 16:19 20:29 01:58 Hold Purple Top Anion Gap Estim Creat Clear Calc Estimated GFR POC Glucose 142 H 114 112 Random Glucose Calcium 04/14/24 04/14/24 04/14/24 05:51 06:55 11:08 Hold Purple Top SEE NOTE Anion Gap 11 L Estim Creat Clear Calc 44.3 Estimated GFR > 60 POC Glucose 82 146 H Random Glucose 96 Calcium 8.8 Assessment and Plan (1) Acute hypernatremia: Status: Acute (2) Acute encephalopathy: Status: Acute (3) Acute renal failure: Status: Acute Plan 78/m who lives by himself with past medical history of significant dementia, panhypopituitarism, SIADH, seizure disorder, paroxysmal AFib with 3rd visit to the ER this month due to fall and altered sensorium. He presented unresponsive, hypernatremia, bradycardic, IRENE, hypothermic (core temp of 88) and hypotensive and was admitted to ICU was consulted for admission. Acute metabolic encephalopathy due to hypernatremia and endocrine dysfunction. Overall mental state has improved but remains confused likely from underlying dementia and residual hypernatremia and probably new baselne. CT of the brain did not show any acute intracranial changes. Hypovolemic shock d/t adrenal insufficiency, no sepsis--resolved with IVF and IV steroid and brief use of vasopressors, presently on midodrine, being tappered down Acute kidney injury secondary to ATN from shock--resolved following IVF Hypernatremia: d/t volume depletion, poor oral intake, endocrine problems. Continue D5 and increase rate to achive low sodium level Hypokalemia--replace and repeat, check mag Heme: Chronic anemia, closely monitor H&H, transfuse for hemoglobin less than 7 grams/deciliter Endocrine: Panhypopituitarism: Patient has an appointment on 04/09 [address] [facility] for brain biopsy, unfortnately not able to make it and will need to be rescheduled when clinically more stable. Continue IV hydrocorisone and change to PO before dcand IV Levothryoxine. 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 See advanced care planing documentation from 04/11 DNR/DNI need for inpatient: management with IRENE, hypotension, hypernatermia will be discharge with hospice per family request next week Quality Stroke Does the patient have a stroke diagnosis?: No VTE Prior VTE?: No VTE Risk Level:: Medical - moderate - high VTE Device Contraindication: N/A - Device Ordered VTE Drug Contraindication: N/A - Med Ordered
[2024-04-14] MEDS: KCl 20 mEq in 5 % Dextrose 20 MEQ/1,000 ML IV.SOLN 200 MEQ IVCONT (13:23)
[2024-04-14 13:36] LABS: Magnesium 2.3 mg/dL (1.6-2.6)
[2024-04-14 15:58] VITALS: BP 124/88; PULSE 105; RESP 18; TEMP 36.3; O2SAT 98
[2024-04-14 16:31] LABS: Glucose, Whole Blood 174 mg/dL (60-115)
[2024-04-14 16:44] LABS: Anion Gap 12 (12-20); Carbon Dioxide 21 mmol/L (22-29); Chloride 114 mmol/L (96-108); Potassium 2.9 mmol/L (3.3-5.1); Sodium 144 mmol/L (135-145)
[2024-04-14] MEDS: KCl 20 mEq in 0.45% Sod 20 MEQ/1,000 ML IV.SOLN 125 MEQ IVCONT (16:59)
[2024-04-14] MEDS: Potassium Chloride Packet 20 MEQ PACKET 40 MEQ PO (17:01)
[2024-04-14 20:00] VITALS: BP 122/73; PULSE 107; RESP 20; TEMP 36.4
[2024-04-14 23:58] LABS: Glucose, Whole Blood 92 mg/dL (60-115)
[2024-04-15] VITALS: BP 114/67; PULSE 71; RESP 20; TEMP 36.3; O2SAT 99
[2024-04-15 03:22] VITALS: BP 120/68; PULSE 70; RESP 20; TEMP 36.1; O2SAT 100
[2024-04-15] MEDS: KCl 20 mEq in 0.45% Sod 20 MEQ/1,000 ML IV.SOLN 125 MEQ IVCONT ×2 (03:35→14:33)
[2024-04-15] MEDS: Hydrocortisone Sod Succ/PF 100 MG VIAL 50 MG IVPUSH (03:35)
[2024-04-15 05:50] LABS: Glucose, Whole Blood 96 mg/dL (60-115)
[2024-04-15 08:00] VITALS: BP 123/70; PULSE 78; RESP 20; TEMP 36.4; O2SAT 98
[2024-04-15 08:13] LABS: Anion Gap 9 (12-20); Blood Urea Nitrogen 23 mg/dL (9-16); Calcium 8.7 mg/dL (8.4-10.2); Carbon Dioxide 24 mmol/L (22-29); Chloride 116 mmol/L (96-108); Estimated Glomerular Filt Rate > 60; Glucose Random 89 mg/dL (60-115); Potassium 3.8 mmol/L (3.3-5.1); Sodium 145 mmol/L (135-145)
[2024-04-15] MEDS: Midodrine HCl 5 MG TABLET PO ×2 (08:59→17:39)
[2024-04-15] MEDS: Topiramate 25 MG TABLET 150 MG PO ×2 (08:59→21:58)
[2024-04-15] MEDS: Atorvastatin Calcium 80 MG TABLET PO (09:00)
[2024-04-15] MEDS: lamoTRIgine 25 MG TABLET 250 MG PO ×2 (09:00→21:57)
--- NOTE | 2024-04-15 10:51 | P.PNIM_ITS ---
Subjective Subjective Date of Service: 04/16/24 Interval History: f/u on panhypopituatarism with hypothermia, hypotension, irene, hypernatermia doing well with no new issues, electrlytes are corrected, vital stable Physical Exam 2 Vital Signs: Vital Signs: Last Vital Signs Temp 97.5 F 04/15/24 08:00 Pulse 78 04/15/24 08:00 Resp 20 04/15/24 08:00 BP 123/70 04/15/24 08:00 Pulse Ox 98 04/15/24 08:00 O2 Del Method Room Air 04/15/24 08:00 BMI result Body Mass Index 17.0 General: Pleasantly Confused not oriented, no acute distress Resp: CTA bilateral CVS: S1,S2,RRR GI: +BS, NT, no distention Skin: No rash Neuro: motor grossly intact Psych: appropriate affect Objective Data Active Medications Atorvastatin Calcium (Atorvastatin Calcium 80 Mg Tablet) 80 mg PO DAILY [facility] Last Admin: 04/15/24 09:00 Dose: 80 mg Documented By: LISA Enoxaparin Sodium (Enoxaparin Sodium 40 Mg/0.4 Ml Syringe) 40 mg SUBCUT Q24H [facility] Last Admin: 04/14/24 12:08 Dose: 40 mg Documented By: LISA Hydrocortisone Sodium Succinate (Hydrocortisone Sod Succ/Pf 100 Mg Vial) 50 mg IVPUSH Q8H [facility] Last Admin: 04/15/24 03:35 Dose: 50 mg Documented By: NAT Dextrose (D10) 250 mls @ 750 mls/hr IV Q15M PRN PRN Reason: per Hypoglycemia Standing Ord. Potassium Chloride/Sodium Chloride (Kcl 20 Meq In 0.45% Sod) 20 meq in 1,000 mls @ 125 mls/hr IVCONT .Q8H [facility] Last Admin: 04/15/24 03:35 Dose: 125 mls/hr Documented By: NAT Lamotrigine (Lamotrigine 25 Mg Tablet) 250 mg PO BID [facility] Last Admin: 04/15/24 09:00 Dose: 250 mg Documented By: LISA Latanoprost (Latanoprost 0.005 % Ophth Melanie 2.5 Ml Drops) 1 drop EYE-BOTH BEDTIME [facility] Last Admin: 04/14/24 21:18 Dose: Not Given Documented By: NAT Non-Admin Reason: Patient Refused Levothyroxine Sodium (Levothyroxine Sodium 100 Mcg/5 Ml Vial) 100 mcg IVPUSH DAILY@0600 [facility] Last Admin: 04/15/24 07:42 Dose: Not Given Documented By: NAT Non-Admin Reason: Patient Refused Midodrine (Midodrine Hcl 5 Mg Tablet) 5 mg PO TID@0800,1400,2000 [facility] Last Admin: 04/15/24 08:59 Dose: 5 mg Documented By: LISA Topiramate (Topiramate 25 Mg Tablet) 150 mg PO BID [facility] Last Admin: 04/15/24 08:59 Dose: 150 mg Documented By: LISA Labs 04/13/24 08:46 04/15/24 07:36 Labs: Laboratory Results - last 24 hr 04/14/24 04/14/24 04/14/24 06:55 11:08 15:58 Hold Purple Top Anion Gap 12 Estim Creat Clear Calc Estimated GFR POC Glucose 146 H Random Glucose Calcium Magnesium 2.3 04/14/24 04/14/24 04/15/24 16:22 23:52 05:40 Hold Purple Top Anion Gap Estim Creat Clear Calc Estimated GFR POC Glucose 174 H 92 96 Random Glucose Calcium Magnesium 04/15/24 07:36 Hold Purple Top SEE NOTE Anion Gap 9 L Estim Creat Clear Calc 49.0 Estimated GFR > 60 POC Glucose Random Glucose 89 Calcium 8.7 Magnesium Assessment and Plan (1) Acute hypernatremia: Status: Acute (2) Acute encephalopathy: Status: Acute (3) Weakness: Status: Acute Plan 78/m who lives by himself with past medical history of significant dementia, panhypopituitarism, SIADH, seizure disorder, paroxysmal AFib with 3rd visit to the ER this month due to fall and altered sensorium. He presented unresponsive, hypernatremia, bradycardic, IRENE, hypothermic (core temp of 88) and hypotensive and was admitted to ICU was consulted for admission. Acute metabolic encephalopathy due to hypernatremia and endocrine dysfunction. Overall mental state has improved but remains confused likely from underlying dementia and residual hypernatremia and probably new baselne. CT of the brain did not show any acute intracranial changes. Hypovolemic shock d/t adrenal insufficiency, no sepsis--resolved with IVF and IV steroid and brief use of vasopressors, presently on midodrine, being tappered down and dc Acute kidney injury secondary to ATN from shock--resolved following IVF Hypernatremia: d/t volume depletion, poor oral intake, endocrine problems. 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 See advanced care planing documentation from 04/11 DNR/DNI need for inpatient: management with IRENE, hypotension, hypernatermia will be discharge with hospice per family request next week Quality Stroke Does the patient have a stroke diagnosis?: No VTE Prior VTE?: No VTE Risk Level:: Medical - moderate - high VTE Device Contraindication: N/A - Device Ordered VTE Drug Contraindication: N/A - Med Ordered
[2024-04-15 11:59] LABS: Glucose, Whole Blood 88 mg/dL (60-115)
[2024-04-15 12:00] VITALS: BP 110/65; PULSE 74; RESP 20; TEMP 36.6; O2SAT 99
[2024-04-15] MEDS: Enoxaparin Sodium 40 MG/0.4 ML SYRINGE SUBCUT (12:13)
[2024-04-15] MEDS: Levothyroxine Sodium 200 MCG TABLET PO (12:13)
[2024-04-15] MEDS: Hydrocortisone 10 MG TABLET 50 MG PO ×2 (12:13→17:39)
[2024-04-15 16:00] VITALS: BP 126/67; PULSE 70; RESP 18; TEMP 36.3; O2SAT 99
[2024-04-15 16:42] LABS: Glucose, Whole Blood 101 mg/dL (60-115)
[2024-04-15 19:29] VITALS: BP 118/69; PULSE 82; RESP 18; TEMP 37.1; O2SAT 99
[2024-04-16] VITALS: BP 130/72; PULSE 88; RESP 19; TEMP 36.2; O2SAT 99
[2024-04-16 01:40] LABS: Glucose, Whole Blood 102 mg/dL (60-115)
[2024-04-16] MEDS: Hydrocortisone 10 MG TABLET 50 MG PO (03:49)
[2024-04-16 04:00] VITALS: BP 148/88; PULSE 86; RESP 17; TEMP 36.5; O2SAT 100
[2024-04-16 08:00] VITALS: BP 134/81; PULSE 80; RESP 16; TEMP 36.1; O2SAT 98
--- NOTE | 2024-04-16 11:07 | MHC.CM.PN ---
CM RECEIVED CALL FROM DEVENDRA AT [facility] IN [facility], PER REQUEST UPDATED MED LIST, LABS AND MD NOTE FAXED TO DEVENDRA AT [phone]. DEVENDRA ALSO REQUESTS AN ADMISSION BETWEEN 12-1PM Tuesday AND PT'S [facility]ORT WOULD NEED TO BE SET UP BETWEEN 8-9AM FOR PT TO ARRIVE AT REQUESTED TIME. PT PREBOOKED FOR 8:30AM VIA [facility], PLEASE CHANGE IF THIS DOES NOT WORK HOWEVER IT WILL TAKE AT LEAST 3.5HRS TO GET TO FACILITY.
--- NOTE | 2024-04-16 11:44 | HO.PM.IMPN ---
Subjective Subjective Date of Service: 04/16/24 Interval History: f/u on panhypopituatarism with hypothermia, hypotension, irene, hypernatermia He is refusing to take PO meds, otherwise no clinical changes Physical Exam Vital Signs: Vital Signs: Last Vital Signs Temp 97 F 04/16/24 08:00 Pulse 80 04/16/24 08:00 Resp 16 04/16/24 08:00 BP 134/81 04/16/24 08:00 Pulse Ox 98 04/16/24 08:00 O2 Del Method Room Air 04/16/24 08:00 BMI result Body Mass Index 17.0 Objective Data Active Medications Atorvastatin Calcium (Atorvastatin Calcium 80 Mg Tablet) 80 mg PO DAILY [facility] Last Admin: 04/16/24 11:18 Dose: Not Given Documented By: LISA Non-Admin Reason: Patient Refused Enoxaparin Sodium (Enoxaparin Sodium 40 Mg/0.4 Ml Syringe) 40 mg SUBCUT Q24H [facility] Last Admin: 04/15/24 12:13 Dose: 40 mg Documented By: LISA Hydrocortisone (Hydrocortisone 10 Mg Tablet) 50 mg PO Q8H [facility] Last Admin: 04/16/24 03:49 Dose: 50 mg Documented By: SAGAR Dextrose (D10) 250 mls @ 750 mls/hr IV Q15M PRN PRN Reason: per Hypoglycemia Standing Ord. Lamotrigine (Lamotrigine 25 Mg Tablet) 250 mg PO BID [facility] Last Admin: 04/16/24 11:18 Dose: Not Given Documented By: LISA Non-Admin Reason: Patient Refused Latanoprost (Latanoprost 0.005 % Ophth Melanie 2.5 Ml Drops) 1 drop EYE-BOTH BEDTIME [facility] Last Admin: 04/15/24 22:28 Dose: Not Given Documented By: SAGAR Non-Admin Reason: Med Not Available Levothyroxine Sodium (Levothyroxine Sodium 200 Mcg Tablet) 200 mcg PO DAILY@0600 [facility] Last Admin: 04/16/24 05:43 Dose: Not Given Documented By: SAGAR Non-Admin Reason: Patient Refused Topiramate (Topiramate 25 Mg Tablet) 150 mg PO BID [facility] Last Admin: 04/16/24 11:18 Dose: Not Given Documented By: LISA Non-Admin Reason: Patient Refused Labs 04/13/24 08:46 04/15/24 07:36 Labs: Laboratory Results - last 24 hr 04/15/24 04/15/24 04/16/24 11:44 16:28 01:12 POC Glucose 88 101 102 Assessment and Plan (1) Acute hypernatremia: Status: Acute (2) Acute encephalopathy: Status: Acute (3) Weakness: Status: Acute Plan 78/m who lives by himself with past medical history of significant dementia, panhypopituitarism, SIADH, seizure disorder, paroxysmal AFib with 3rd visit to the ER this month due to fall and altered sensorium. He presented unresponsive, hypernatremia, bradycardic, IRENE, hypothermic (core temp of 88) and hypotensive and was admitted to ICU was consulted for admission. Acute metabolic encephalopathy due to hypernatremia and endocrine dysfunction. Overall mental state has improved but remains confused likely from underlying dementia and residual endocrine dysfunction. CT of the brain did not show any acute intracranial changes. Hypovolemic shock d/t adrenal insufficiency, no sepsis--resolved with IVF and IV steroid and brief use of vasopressors. Midodrine stopped Acute kidney injury secondary to ATN from shock--resolved following IVF Hypernatremia: d/t volume depletion, poor oral intake, endocrine problems. Resolved. 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 See advanced care planing documentation from 04/11 DNR/DNI need for inpatient: management with IRENE, hypotension, hypernatermia will be discharge with hospice per family request next week Quality Stroke Does the patient have a stroke diagnosis?: No VTE Prior VTE?: No VTE Risk Level:: Medical - moderate - high VTE Device Contraindication: N/A - Device Ordered VTE Drug Contraindication: N/A - Med Ordered
[2024-04-16 12:00] VITALS: BP 120/64; PULSE 117; RESP 16; TEMP 37.1
--- NOTE | 2024-04-16 12:23 | MHC.SLORD ---
Speech Language Pathology Order Status: Pt adamantly declined oral care & PO trials w/ STRAW BOSS; covering mouth w/blanket, swatting hands, yelling. Per RN, pt has been refusing most care including refusing meds this AM. RN reports that previously, pt was tolerating crushed meds in puree. RN expressed concern for thin liquids reporting that pt takes long time to swallow thin liquids via cup sip. However, reports no presence of wet cough. STRAW BOSS to continue to follow.
[2024-04-16] MEDS: Hydrocortisone Sod Succ/PF 100 MG VIAL 50 MG IVPUSH ×2 (14:37→21:30)
--- NOTE | 2024-04-16 14:42 | MHC.CLN ---
F/U DIET RX: PUREED -APPROPRIATE PT RECEIVING MAGIC CUP TID TO INCREASE KCALS SUPPLEMENT PROVIDES 870KCALS, 27G PROTEIN PT RECEIVING ENSURE TID TO PROVIDE 1050KCALS, 60G PROTEIN PER FAMILY REQUEST INTAKE AT [facility]ALS USUALLY APPROX 50% NO PEG PER FAMILY; HOSPICE CONSULT PENDING MONITOR PO INTAKE AND ENCOURAGE SUPPLEMENTS
--- NOTE | 2024-04-16 16:31 | PM.EVENT ---
Event Note Date of Service: 04/16/24 Event Note: spoke to HCP Mamta and updated her. Pt has been refusing meds, food and lab test. HCP understands that treatment will not be force on him and if he refuses to take meds or eat, let him be, for now shakira continue iv levothyroxine, and hydrocortisone and plan is still to transport to SNF in [place] for hospice on Tuesday Time Spent With Patient Time: Total time managing care of this patient today ____ minutes.
[2024-04-16] MEDS: Levothyroxine Sodium 100 MCG/5 ML VIAL IVPUSH (16:39)
[2024-04-16] MEDS: KCl 20 mEq in 0.45% Sod 20 MEQ/1,000 ML IV.SOLN 100 MEQ IVCONT (16:43)
[2024-04-16 17:31] LABS: Glucose, Whole Blood 81 mg/dL (60-115)
[2024-04-16] MEDS: Haloperidol Lactate 5 MG/ML VIAL IM ×2 (20:40→23:49)
--- NOTE | 2024-04-16 21:02 | PM.EVENT ---
Event Note Date of Service: 04/16/24 Event Note: 8:21 PM - contacted by nursing to notify pt becomes combative when approached and several attempts OOB. He has been like this all day and refusing labs and meds. I went to evaluate him. He was soiled in urine and stools. He was very restless and was unable to answer simple questions. On my way out he attempted to get out bed, alarm triggered. Fortunately his nurse hold him. We helped him to go back to bed. He was kicking and combative. Haldol 5 mg IM given stat and was cleaned. No sitters available. Camera is on. Cardiac loop recorder noted on left side of his chest. Time Spent With Patient Time: Total time managing care of this patient today ____ minutes.
[2024-04-17 04:00] VITALS: BP 142/78; PULSE 115; RESP 16; TEMP 36.3; O2SAT 95
[2024-04-17 05:42] LABS: Glucose, Whole Blood 59 mg/dL (60-115)
[2024-04-17] MEDS: Dextrose 10 % 250 ML 750 ML IV (05:42)
[2024-04-17 06:05] LABS: Glucose, Whole Blood 69 mg/dL (60-115)
[2024-04-17] MEDS: Hydrocortisone Sod Succ/PF 100 MG VIAL 50 MG IVPUSH ×3 (06:43→21:39)
[2024-04-17] MEDS: KCl 20 mEq in 0.45% Sod 20 MEQ/1,000 ML IV.SOLN 100 MEQ IVCONT (06:44)
[2024-04-17 07:05] LABS: Glucose, Whole Blood 104 mg/dL (60-115)
[2024-04-17 07:18] VITALS: BP 131/96; PULSE 56; RESP 20; TEMP 36.9; O2SAT 82
[2024-04-17 08:12] LABS: Glucose, Whole Blood 79 mg/dL (60-115)
[2024-04-17] MEDS: Dextrose 5 % and 0.45 % NaCl 1,000 ML 100 ML IVCONT ×2 (08:12→17:31)
--- NOTE | 2024-04-17 11:33 | HO.PM.IMPN ---
Subjective Subjective Date of Service: 04/17/24 Interval History: f/u on panhypopituatarism with hypothermia, hypotension, irene, hypernatermia he continues to be increasingly agitted, confused, refusing care, not eating, refusing vital ad they not able draw labs, his sugar dropped to 59, but has gone up with glucose.. He has taken off his O2 and is saturatin in the 80s, but no apparent distress Physical Exam Vital Signs: Vital Signs: Last Vital Signs Temp 98.4 F 04/17/24 07:18 Pulse 56 04/17/24 07:18 Resp 20 04/17/24 07:18 BP 131/96 H 04/17/24 07:18 Pulse Ox 82 L 04/17/24 07:18 O2 Del Method Room Air 04/17/24 07:18 BMI result Body Mass Index 17.0 Confused, agitated at time, doesn't follow command, not in distress refusing eval Objective Data Active Medications Atorvastatin Calcium (Atorvastatin Calcium 80 Mg Tablet) 80 mg PO DAILY [facility] Last Admin: 04/17/24 08:45 Dose: Not Given Documented By: SHAHRZAD Non-Admin Reason: Patient Refused Enoxaparin Sodium (Enoxaparin Sodium 40 Mg/0.4 Ml Syringe) 40 mg SUBCUT Q24H [facility] Last Admin: 04/16/24 13:07 Dose: Not Given Documented By: LISA Non-Admin Reason: Patient Refused Hydrocortisone Sodium Succinate (Hydrocortisone Sod Succ/Pf 100 Mg Vial) 50 mg IVPUSH Q8H [facility] Last Admin: 04/17/24 06:43 Dose: 50 mg Documented By: SAGAR Dextrose (D10) 250 mls @ 750 mls/hr IV Q15M PRN PRN Reason: per Hypoglycemia Standing Ord. Last Infusion: 04/17/24 07:56 Dose: Infused Documented By: SHAHRZAD Dextrose/Sodium Chloride (D51/2ns) 1,000 mls @ 100 mls/hr IVCONT .Q10H [facility] Last Admin: 04/17/24 08:12 Dose: 100 mls/hr Documented By: SHAHRZAD Lamotrigine (Lamotrigine 25 Mg Tablet) 250 mg PO BID [facility] Last Admin: 04/17/24 08:45 Dose: Not Given Documented By: SHAHRZAD Non-Admin Reason: Patient Refused Latanoprost (Latanoprost 0.005 % Ophth Melanie 2.5 Ml Drops) 1 drop EYE-BOTH BEDTIME [facility] Last Admin: 04/16/24 21:26 Dose: Not Given Documented By: SAGAR Non-Admin Reason: Patient Refused Levothyroxine Sodium (Levothyroxine Sodium 100 Mcg/5 Ml Vial) 100 mcg IVPUSH DAILY@0600 [facility] Last Admin: 04/17/24 07:01 Dose: Not Given Documented By: SAGAR Non-Admin Reason: No Access Topiramate (Topiramate 25 Mg Tablet) 150 mg PO BID [facility] Last Admin: 04/17/24 08:45 Dose: Not Given Documented By: SHAHRZAD Non-Admin Reason: Patient Refused Labs 04/13/24 08:46 04/15/24 07:36 Labs: Laboratory Results - last 24 hr 04/16/24 04/17/24 04/17/24 17:27 05:32 06:01 POC Glucose 81 59 L* 69 04/17/24 04/17/24 06:59 08:08 POC Glucose 104 79 Assessment and Plan (1) Acute hypernatremia: Status: Acute (2) Acute encephalopathy: Status: Acute (3) Weakness: Status: Acute Plan 78/m who lives by himself with past medical history of significant dementia, panhypopituitarism, SIADH, seizure disorder, paroxysmal AFib with 3rd visit to the ER this month due to fall and altered sensorium. He presented unresponsive, hypernatremia, bradycardic, IRENE, hypothermic (core temp of 88) and hypotensive and was admitted to ICU was consulted for admission. Acute metabolic encephalopathy due to hypernatremia and endocrine dysfunction. Overall mental state has improved but remains confused likely from underlying dementia and residual endocrine dysfunction. CT of the brain did not show any acute intracranial changes. Hypovolemic shock d/t adrenal insufficiency, no sepsis--resolved with IVF and IV steroid and brief use of vasopressors. Midodrine stopped Acute kidney injury secondary to ATN from shock--resolved following IVF Hypernatremia: d/t volume depletion, poor oral intake, endocrine problems. Resolved. 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 See advanced care planing documentation from 04/11 DNR/DNI need for inpatient: management with IRENE, hypotension, hypernatermia There is plan for partient to go to hospice in [place] tomorrow. Will try to continue care if patient cooperate, if agitation and behavioral impacting care and staff, we may may resort to medication to control i shakira discuss with daughter again Quality Stroke Does the patient have a stroke diagnosis?: No VTE Prior VTE?: No VTE Risk Level:: Medical - moderate - high VTE Device Contraindication: N/A - Device Ordered VTE Drug Contraindication: N/A - Med Ordered
[2024-04-17 12:25] LABS: Glucose, Whole Blood 108 mg/dL (60-115)
--- NOTE | 2024-04-17 13:57 | MHC.SL.SWA ---
Risk of Aspiration Due to: Neurological Condition Reduced Cognition Weak Voice Dysphasia Diet Status: No change Liquid Consistency and Strategies for Safe Swallow: Liquid Intake Recommendation: Thin Liquid Intake Strategies: Small Sips Solid Food Consistency: Dietary Recommendations: Pureed (NDD1) Additional Modifications to Solid Foods: Oral Medication Intake: Crushed with Puree Please contact the pharmacy regarding appropriate crushable or liquid drug formulations that are available whenever modified delivery is recommended. Compensatory Strategies and Precautions to be Taken for Safe Swallow: Sitting Upright (90 deg) Small Bites and Sips Alternate Liquids/Solids Rate of Ingestion Change Supervision While Eating and Drinking for Safe Swallow: Total Assistance (1:1) Foods to Avoid: Swallowing Recommended Treatments: Compens. Strategy Educat. Recommendation for Speech: Further Testing Needed Inpatient Speech Therapy Comment: Today is the second consecutive day that LABORATORY ANALYST is unable to adequately assess if patient is able to tolerate current diet recommendations of puree solids and thin liquids. Patient consistently pushed/swatted away bites of food offered. He accepted one bite of magic cup then proceeded to scrape it from his tongue using his hands. Patient was not observed to swallow any PO w/ LABORATORY ANALYST past 2 days. LABORATORY ANALYST recommendation based on past visits when pt accepted PO has been as follows: PUREE solids (NDD1), THIN liquids, pills CRUSHED PUREE. Pt requires 1-1 assist d/t confusion. Recommend alternate liquids/solids. Pt last accepted PO trials w/ LABORATORY ANALYST on Friday 04/13. Strategic Partnership Specialist Clinican/Clinical Fellow: No Supervisory Statement: I have reviewed and agree with the student/clinical fellow's documentation: N/A Speech Language Pathologist: Denae Ortiz M.A., CCC-LABORATORY ANALYST
--- NOTE | 2024-04-17 14:09 | MHC.CM.PN ---
SUDEEP confirmed with [facility] the trip that is scheduled for 04/18/24 to bring pt to [facility] in [place], [place]. SUDEEP spoke with Briana at [facility] in [place], and sent updated PN via email, because fax would not go through. SUDEEP spoke with pt's sister / HCP Mamta, she requested that ambulance bring pt.'s belongings with them, SUDEEP confirmed with [facility] that they would do so.
[2024-04-17] MEDS: Enoxaparin Sodium 40 MG/0.4 ML SYRINGE SUBCUT (14:14)
[2024-04-17 15:24] VITALS: BP 130/83; PULSE 101; RESP 20; TEMP 37; O2SAT 95
[2024-04-17] MEDS: LORazepam 2 MG/ML VIAL 0.5 MG IVPUSH (17:30)
[2024-04-17 18:10] LABS: Glucose, Whole Blood 131 mg/dL (60-115)
--- NOTE | 2024-04-17 21:11 | P.DS_ITS ---
DS: Providers Provider Date of Service: 04/18/24 Date of admission: 04/06/24 12:54 Primary care physician: Pilar Edmondson MD Consults: 04/06/24 14:13 Consult to Endocrinology Routine Consulting Provider: Saman France Reason for consultation: panhypopitutarism Has provider been notified: No 04/08/24 22:32 Consult to Nephrology Routine Consulting Provider: [facility] Reason for consultation: hypernatremia Has provider been notified: Yes DS: Diagnosis Discharge Diagnosis (1) Acute hypernatremia: Status: Acute (2) Acute encephalopathy: Status: Acute (3) Weakness: Status: Acute DS: Summary Hospital Course Hospital Course: admission hpi Chief Complaint: Unresponsive History is limited as patient is unresponsive and no family members bedside, family members not answering the phone either 78-year-old male who lives by himself with past medical history of significant d ementia, panhypopituitarism, SIADH, seizure disorder, paroxysmal AFib with 3rd visit to the ER this month due to fall and altered sensorium. He presented to the ED yesterday with a fall and altered mental status worrisome for seizure disorder. This morning patient became extremely drowsy, unresponsive, hypothermic and hypotensive so MICU was consulted for admission. His body temperature is we are down to 88 F, he was bradycardic to 40s and 50s, blood pressures in 80s systolics. Labs are significant for acute kidney injury with a creatinine of 1.52, hypernatremia with sodium of 156. hospital course: The patient presented with recurrent episodes of altered mental status, being unresponsive, within the context of known panhypopituitarism, SIADH, and a seizure disorder. Upon examination, he was found to be encephalopathic with hypovolemic shock, severe hypernatremia, acute kidney injury (IRENE) attributed to a pre-renal state and ATN, and hypokalemia. There was no evidence of infection or sepsis causing the hypovolemic shock. A CT scan of the head showed no acute intracranial abnormalities. Due to the severity of hypovolemic shock, he was admitted to the ICU, and his primary management involved intravenous fluids (IVF) and vasopressors to address hypotension. The IRENE, attributed to pre-renal and acute tubular necrosis (ATN) from shock, completely resolved with IVF resuscitation. Similarly, hypernatremia, related to endocrine dysfunction and a deficit of free water intake, was corrected primarily with IVF water replacement, as the patient was consuming minimal to no water independently. Hypokalemia was corrected with potassium replacement. The patient's acute metabolic encephalopathy was attributed to hypernatremia and endocrine dysfunction and underlying dementia. While there has been some improvement in his presenting condition, he remains very confused, likely due to underlying dementia and endocrine dysfunction. A CT scan of the brain did not reveal any acute intracranial changes. His hospitalization has been complicated by moderate to severe malnutrition as his refusing to eat, persistent encephalopathy, and his reluctance to accept medical care. Due to the worsening of his condition and the overall bleak prognosis, a conversation was held with his healthcare proxy (Mamta) to discuss goals of care. As a result, his status has been transitioned to hospice care, prioritizing comfort and dignity in his remaining time. Consequently, he will be discharged home with his family under hospice care. Medications including Ativan, morphine, and Haldol will be prescribed to ensure his comfort. Hypovolemic shock d/t adrenal insufficiency, no sepsis--resolved with IVF and IV steroid and brief use of vasopressors. Midodrine stopped Acute kidney injury secondary to ATN from shock--resolved following IVF Hypernatremia: d/t volume depletion, poor oral intake, endocrine problems. Resolved. Encourage oral intake Hypokalemia-- last level normal, continue monitoring Heme: Chronic anemia, closely monitor H&H, transfuse for hemoglobin less than 7 grams/deciliter Endocrine: Panhypopituitarism: Patient had an appointment on 04/09 at [facility] for brain biopsy, family no longer want work up. Was on thyroid replacment and iv hydrocortisone for to prevent adrenal insuficiency Infectious disease: empirically treated with zosyn x 7 days, cultures were negative Chronic moderate protein calory malnutrition: his intake were minimal to none and therefore relied on IVF most of the time for hydration. Family did not want feeding tube History of AFIB--on metoprolol, Patient is being discharge to an assisted living facily in [place] for hospice care with his family Time Attestation Discharge Coordination Time (in mins): 45 Quality: Safe Use of Opioids Does Pt have an Active Cancer Diagnosis on the Problem List?: No Quality: Stroke Does the patient have a stroke diagnosis?: No Physical Exam Vital Signs: Vital Signs: Last Vital Signs Temp 98.6 F 04/17/24 15:24 Pulse 101 H 04/17/24 15:24 Resp 20 04/17/24 15:24 BP 130/83 04/17/24 15:24 Pulse Ox 95 04/17/24 15:24 O2 Del Method Room Air 04/17/24 15:24 BMI result Body Mass Index 17.0 Confused, agitated at time, doesn't follow command, not in distress refusing eval DS: Data Data Completed and Pending Labs on day of discharge: Laboratory Results - last 24 hr 04/17/24 04/17/24 04/17/24 05:32 06:01 06:59 POC Glucose 59 L* 69 104 04/17/24 04/17/24 04/17/24 08:08 12:20 18:07 POC Glucose 79 108 131 H Discharge Plan Discharge Anticipated Discharge Date/Time: 04/18/24 07:40 Patient Disposition: Xfer SNF Discharge Diagnosis: Encephalopathy, failure to thrive, hypernatremia, IRENE, malnutrition, Panhypopituatarism Referrals: Pilar Edmondson MD [Primary Care Provider] - 1 Week Discharge Medications: New morphine concentrate 100 mg/5 mL (20 mg/mL) solution 5 mg PO Q3H PRN (Reason: pain/comfort) 15 Days Qty: 30 0RF Rx Instructions: Partial Fill upon patient request. scopolamine base 1 mg over 3 days patch 3 day 1 patch transdermal Q72H 12 Days Qty: 4 0RF Rx Instructions: 1 patch behind ear Q72H for secretions lorazepam [Lorazepam Intensol] 2 mg/mL concentrate 0.5 mg PO Q4H PRN (Reason: anxiety/restlessness) Qty: 30 0RF haloperidol lactate 2 mg/mL Concentrate 1 mg PO Q6H PRN (Reason: Agitation/restlessness) 7 Days Qty: 15 1RF Continued prednisone 1 mg tablet 4 mg PO DAILY calcipotriene 0.005 % cream 1 appl topical BID testosterone cypionate 200 mg/mL oil 200 mg IM TH rosuvastatin 20 mg tablet 20 mg PO DAILY lamotrigine 100 mg tablet 250 mg PO BID latanoprost 0.005 % drops 1 drp ophthalmic (eye) BEDTIME Rx Instructions: both eyes levothyroxine 112 mcg tablet 112 mcg PO DAILY@0730 topiramate 100 mg tablet 150 mg PO BID salicylic acid-sulfur 2-2 % Shampoo 1 appl TOPICAL DAILY PRN (Reason: Itching) Rx Instructions: massage into wet scalp; leave on for 5 mins ; rinse; repeat application midodrine 10 mg Tablet 10 mg PO TID@0800,1400,2000 Rx Instructions: do not give last dose of day after 6PM or within 4 hrs of bedtime Discharge Orders: Discharge Order (Routine); Ordered 04/18/24 Ordered By: Howard Thompson Diet: Advance to usual diet Activity on Discharge: As tolerated Stand Alone Forms: Patient Portal Discharge page Print Language: Egyptian Care Plan Goals: hospice care with emphasizes comfort, and allowing the patients to live as fully and comfortably as possible during the remaining time and ensuring that his end-of-life wishes are respected. Health Concerns: Encephalopathy leading to failure to thrive, malnutrition, resitance to care and other medical complication Plan of Treatment: Hospice care at home Although he may take his regular home medication regimen, as his condition worsens, there's a likelihood he may not continue taking these medications. Therefore, it's important to consider administering Ativan and morphine to alleviate any pain and anxiety he may experience. Assessment: see above Discharge Date/Time: 04/18/24 08:46
[2024-04-18] MEDS: LORazepam 2 MG/ML VIAL 0.5 MG IVPUSH (01:21)
[2024-04-18] MEDS: Hydrocortisone Sod Succ/PF 100 MG VIAL 50 MG IVPUSH (05:46)
[2024-04-18] MEDS: Dextrose 5 % and 0.45 % NaCl 1,000 ML 100 ML IVCONT (05:52)
[2024-04-18] MEDS: LORazepam 2 MG/ML VIAL 1 MG IVPUSH (07:24)
[2024-04-18 08:00] VITALS: BP 160/90; PULSE 130; RESP 18; TEMP 36.2; O2SAT 93
--- NOTE | 2024-04-18 08:40 | MHC.CM.PN ---
Second IMM sent to HCP, pt. has been medically cleared for DC, he will be transferred today to [facility] in [place], [place] via BLS.
== END 2024-04-18 08:46 | disposition skilled nursing facility (03) | DRG 643 ==
LOC: HO.ED 04-06 01:24 → HO.EDOVER 04-06 13:09 → HO.ICU 04-06 13:45 → HO.IMC 04-08 14:32
PROVIDERS: Nurse Practitioner Family; Physician Assistant Medical; Admitting Provider Internal Medicine Critical Care Medicine; Emergency Provider Internal Medicine; PCP Internal Medicine; Visit Provider Internal Medicine
DX: E23.0 Hypopituitarism (principal); G93.41 Metabolic encephalopathy; R57.1 Hypovolemic shock; N17.0 Acute kidney failure with tubular necrosis; E44.0 Moderate protein-calorie malnutrition; Z68.1 Body mass index [BMI] 19.9 or less, adult; E87.0 Hyperosmolality and hypernatremia; E27.40 Unspecified adrenocortical insufficiency; I48.0 Paroxysmal atrial fibrillation; Z66 Do not resuscitate; F03.90 Unspecified dementia, unspecified severity, without behavioral disturbance, psychotic disturbance, mood disturbance, and anxiety; D64.9 Anemia, unspecified; E78.5 Hyperlipidemia, unspecified; E87.6 Hypokalemia; G40.909 Epilepsy, unspecified, not intractable, without status epilepticus; R68.0 Hypothermia, not associated with low environmental temperature; E03.9 Hypothyroidism, unspecified; Z20.822 Contact with and (suspected) exposure to COVID-19; Z79.52 Long term (current) use of systemic steroids; Z79.890 Hormone replacement therapy; Z79.899 Other long term (current) drug therapy
CPT/HCPCS: 0241U; 36415; 70450; 71045; 80048; 80051; 80053; 81001; 82947; 83605; 83735; 84100; 84145; 84439; 84443; 85025; 85027; 85610; 85730; 87040; 92526; 92610; 93005; 97162; 99285; C1758; J0651; J1630; J1650; J1720; J2060; J2543; J3480; J7120; P9047

== ENCOUNTER → 2024-04-05 20:28 | Outpatient (BNV) | payer MEDICARE, SELFPAY | PROVIDERS: Emergency Provider Internal Medicine; PCP Internal Medicine; Visit Provider Internal Medicine Cardiovascular Disease | DX: I44.0 Atrioventricular block, first degree (principal) | CPT/HCPCS: 93010 ==

== ENCOUNTER → 2024-04-06 12:54 | Outpatient (BNV) | payer MEDICARE, SELFPAY | PROVIDERS: Admitting Provider Internal Medicine Critical Care Medicine; Emergency Provider Internal Medicine; PCP Internal Medicine; Visit Provider Internal Medicine Nephrology | DX: N17.0 Acute kidney failure with tubular necrosis (principal) | CPT/HCPCS: 99223; 99232 ==

== ENCOUNTER → 2024-04-06 12:54 | Outpatient (BNV) | payer MEDICARE, SELFPAY | PROVIDERS: Admitting Provider Internal Medicine Critical Care Medicine; Emergency Provider Internal Medicine; PCP Internal Medicine; Visit Provider Internal Medicine | DX: E87.0 Hyperosmolality and hypernatremia (principal); G93.40 Encephalopathy, unspecified; R53.1 Weakness | CPT/HCPCS: 99232; 99233; 99239; 99497; 99499 ==

== ENCOUNTER → 2024-04-06 12:54 | Outpatient (BNV) | payer MEDICARE, SELFPAY | PROVIDERS: Admitting Provider Internal Medicine Critical Care Medicine; Emergency Provider Internal Medicine; PCP Internal Medicine; Visit Provider Internal Medicine Critical Care Medicine | DX: N17.9 Acute kidney failure, unspecified (principal); E87.0 Hyperosmolality and hypernatremia; G93.40 Encephalopathy, unspecified; R53.1 Weakness; G40.909 Epilepsy, unspecified, not intractable, without status epilepticus | CPT/HCPCS: 99223; 99233 ==